=== PATIENT | female | born 1960 | race Caucasian/White ===

== ENCOUNTER 2016-07-07 06:23 | Day surgery (SDC) | payer OTHER ==
[~2016-07-07] VITALS: Ht 168.9 cm; Wt 120.6 kg
[~2016-07-07 06:23] MED LIST: BUDE10.2 INH; CODE30TA2 PO; FEXO180T56 PO; LEVO125T4 PO; OLOP5DRO BOTH EYES; [UNRECOGNIZED DRUG - CODE] PO; nasacort NAS
--- OUTSIDE RECORDS SUMMARY | 2016-07-07 06:31 | XMS REPORT | Referral Summary ---
Author Author [facility], [place] [facility] Organization [facility] Adali[facility]ADISLA[facility] Cortes, [facility] [place], [facility] Address Unknown Phone Unavailable Care Team Providers Care Healthcare Associate Name Role Phone Chantelle Helms Primary Care Physician [phone] Encounter VC Date(s): 10/18/14 - 10/18/14 [facility], [facility] [place], [facility] [address], [address] [place], [place] [address] Discharge Disposition: 01-Home or Self Care Attending Physician: Lin Agrawal, [facility] Admitting Physician: [facility] Tanja, [facility] Vital Signs No data available for this section Problem List Condition Effective Dates Status Health Status Informant Acute Active bronchitis(Confirmed ) Acute Active sinusitis(Confirmed) Allergic Active rhinitis(Confirmed) Benign essential Active hypertension(Confirm ed) Visit for screening Active mammogram(Confirmed) Chest Active discomfort(Confirmed ) Chicken Active pox(Confirmed) Chronic Active headaches(Confirmed) Chronic low back Active pain(Confirmed) Dry eyes(Confirmed) Active Dyspnea(Confirmed) Active Edema(Confirmed) Active Elevated Active BP(Confirmed) Fracture of multiple Active transverse processes(Confirmed) Hayfever(Confirmed) Active Adult Active hypothyroidism(Confi rmed) Influenza Active B(Confirmed) Well adult Active exam(Confirmed) Hot flashes due to Active surgical menopause(Confirmed) Mitral valve Active regurgitation(Confir med) Left leg Active weakness(Confirmed) Morbid obesity with Active BMI of 40.0-44.9, adult(Confirmed) Obstructive sleep Active apnea, adult(Confirmed) Overweight(Confirmed Active ) Left leg Active paresthesias(Confirm ed) Pneumonia(Confirmed) Active Surgical menopause Active on hormone replacement therapy(Confirmed) Restless legs Active syndrome (RLS)(Confirmed) Colon cancer Active screening(Confirmed) Sinus Active infection(Confirmed) Snoring Active disorder(Confirmed) Abnormal chest Active x-ray(Confirmed) Allergies, Adverse Reactions, Alerts Substance Reaction Severity Status penicillin Rash Active Medications acyclovir 200 mg oral capsule See Instructions, Take 4 caps for a cold sore. May repeat in 8-12 hours., # 30 caps, 11 Refill(s), Pharmacy: [facility] #[id number], Take 4 caps for a cold sore. May repeat in 8-12 hours. Start Date: 03/15/14 Status: Ordered Keturah Allergy 180 mg, Oral, Daily, 0 Refill(s) Start Date: 09/05/13 Status: Ordered calcium carbonate 500 mg, Oral, BID, 0 Refill(s) Start Date: 09/05/13 Status: Ordered estradiol 2 mg oral tablet 1 tabs, Oral, Daily, 0 Refill(s) Start Date: 09/05/13 Status: Ordered fluticasone 50 mcg/inh nasal spray See Instructions, USE 2 SPRAYS IN EACH NOSTRIL DAILY NEEDED, # 16 unknown unit, 2 Refill(s), eRx: [facility] #[id number], USE 2 SPRAYS IN EACH NOSTRIL DAILY NEEDED Start Date: 12/01/14 Status: Ordered levothyroxine 25 mcg (0.025 mg) oral tablet See Instructions, TAKE ONE TABLET BY MOUTH EVERY DAY, # 90 tabs, eRx: [facility] #[id number], TAKE ONE TABLET BY MOUTH EVERY DAY Start Date: 03/26/15 Status: Ordered losartan 25 mg oral tablet 1 tabs, Oral, Daily, # 30 tabs, 11 Refill(s), Pharmacy: [facility] #[id number] , 1 tabs Oral Daily Start Date: 03/31/14 Status: Ordered Nasacort AQ sprays, Nasal, Daily, 0 Refill(s) Start Date: 07/13/14 Status: Ordered omega-3 polyunsaturated fatty acids 1000 mg oral capsule 1 caps, Oral, Daily, 0 Refill(s) Start Date: 12/06/13 Status: Ordered Patanol 0.1% ophthalmic solution 1 drops, Eye-Both, BID, as needed for allergies, # 5 mL, 5 Refill(s), Pharmacy: [facility] #[id number] Start Date: 11/07/14 Status: Ordered Requip 1 mg oral tablet See Instructions, TAKE 1 TABLET BY MOUTH 9 TIMES EACH DAY, # 270 tabs, 1 Refill( s), eRx: [facility] #[id number], TAKE 1 TABLET BY MOUTH 9 TIMES EACH DAY Start Date: 03/22/15 Status: Ordered Results No data available for this section Immunizations Vaccine Date Refusal Reason influenza virus vaccine, inactivated1 12/06/13 pneumococcal 23-polyvalent vaccine 11/07/14 tetanus-diphth toxoids (Td) adult/adol 12/28/02 1Result Comment: [12/06/2013] See scanned document Procedures Procedure Date Related Diagnosis Body Site S/P sinus surgery 2009 [facility] - Total abdominal hysterectomy and 2007 bilateral salpingo-oophorectomy1 1had endometriosis and ovarian cysts; nothing precancerous; no abnormal pap smears Social History Social History Type Response Smoking Status Never smoker Assessment and Plan No data available for this section
--- OUTSIDE RECORDS SUMMARY | 2016-07-07 06:31 | XMS REPORT | Referral Summary ---
Author Author [facility] [place], [facility] Organization [facility] Address Unknown Phone Unavailable Care Team Providers Care Glove Cuffer Name Role Phone Chantelle Helms Primary Care Physician [phone] Encounter Date(s): 11/07/14 - 11/07/14 [facility] VLADISLAV Kaur [place], [address] [place] [address] Discharge Diagnosis: Hypothyroid Discharge Disposition: 01-Home or Self Care Attending Physician: Nishant Helms MD Admitting Physician: Nishant Helms MD Vital Signs Most recent to 1 oldest [Reference Range]: Temperature Tympanic 36.5 degC [36.6-38.1 degC] *LOW* (11/07/14 7:27 AM) Peripheral Pulse 64 bpm Rate [60-100 bpm] (11/07/14 7:27 AM) Blood Pressure 124/82 mmHg [90-140/60-90 mmHg] (11/07/14 7:27 AM) Problem List Condition Effective Dates Status Health [...] hours., # 30 caps, 11 Refill(s), Pharmacy: [facility] #[id number], Take 4 caps for a cold sore. [...] # 16 unknown unit, 2 Refill(s), eRx: [facility] #[id number], USE 2 SPRAYS IN EACH NOSTRIL DAILY NEEDED Start Date: 12/01/14 Status: Ordered levothyroxine 25 mcg (0.025 mg) oral tablet See Instructions, TAKE ONE TABLET BY MOUTH EVERY DAY, # 90 tabs, eRx: [facility] #[id number], TAKE ONE TABLET BY MOUTH EVERY DAY Start Date: 03/26/15 Status: Ordered losartan 25 mg oral tablet 1 tabs, Oral, Daily, # 30 tabs, 11 Refill(s), Pharmacy: [facility] #[id number] , 1 tabs Oral Daily Start Date: 03/31/14 Status: Ordered Nasacort AQ sprays, Nasal, Daily, 0 Refill(s) Start Date: 07/13/14 Status: Ordered omega-3 polyunsaturated fatty acids 1000 mg oral capsule 1 caps, Oral, Daily, 0 Refill(s) Start Date: 12/06/13 Status: Ordered Patanol 0.1% ophthalmic solution 1 drops, Eye-Both, BID, as needed for allergies, # 5 mL, 5 Refill(s), Pharmacy: [facility] #[id number] Start Date: 11/07/14 Status: Ordered Requip 1 mg oral tablet See Instructions, TAKE 1 TABLET BY MOUTH 9 TIMES EACH DAY, # 270 tabs, 1 Refill( s), eRx: [facility] #[id number], TAKE 1 TABLET BY MOUTH 9 TIMES EACH DAY Start Date: 03/22/15 Status: Ordered Results Hematology Most recent to 1 oldest [Reference Range]: WBC [4.8-10.8 7.3 10*3/uL 10*3/uL] (11/07/14 8:40 AM) RBC [4.00-5.20] 4.83 (11/07/14 8:40 AM) Hgb [12.0-16.0 14.3 gm/dL gm/dL] (11/07/14 8:40 AM) Hct [37.0-47.0 %] 42.5 % (11/07/14 8:40 AM) MCV [82.0-99.0 fL] 88.0 fL (11/07/14 8:40 AM) MCH [27.0-32.0 pg] 29.6 pg (11/07/14 8:40 AM) MCHC [32.0-36.0 33.6 gm/dL gm/dL] (11/07/14 8:40 AM) RDW [11.5-14.5 %] 13.7 % (11/07/14 8:40 AM) Platelet [150-400 203 10*3/uL 10*3/uL] (11/07/14 8:40 AM) MPV [8.8-14.8 fL] 11.2 fL (11/07/14 8:40 AM) Immature 0.1 % Granulocytes (11/07/14 8:40 AM) [0.0-1.0 %] Neutrophils [51-75 46 % %] *LOW* (11/07/14 8:40 AM) Lymphocytes [20-46 33 % %] (11/07/14 8:40 AM) Monocytes [4-11 %] 8 % (11/07/14 8:40 AM) Eosinophils [0-4 %] 13 % *HI* (11/07/14 8:40 AM) Basophils [0-2 %] 1 % (11/07/14 8:40 AM) Neutro Absolute 3.35 10*3 [1.90-7.00 10*3] (11/07/14 8:40 AM) Lymph Absolute 2.40 10*3 [0.80-3.30 10*3] (11/07/14 8:40 AM) Charlton Absolute 0.58 10*3 [0.30-1.00 10*3] (11/07/14 8:40 AM) Eos Absolute 0.94 10*3 [0.00-0.50 10*3] *HI* (11/07/14 8:40 AM) Baso Absolute 0.06 10*3 [0.00-0.20 10*3] (11/07/14 8:40 AM) Chemistry Most recent to 1 oldest [Reference Range]: Sodium Lvl [135-144 140 mEq/L mEq/L] (11/07/14 8:40 AM) Potassium Lvl 4.0 mEq/L [3.5-5.2 mEq/L] (11/07/14 8:40 AM) Chloride [99-111 107 mEq/L mEq/L] (11/07/14 8:40 AM) CO2 [22-31 mEq/L] 26 mEq/L (11/07/14 8:40 AM) AGAP [3-20] 7 (11/07/14 8:40 AM) BUN [10-20 mg/dL] 11 mg/dL (11/07/14 8:40 AM) Glucose Lvl [70-99 98 mg/dL mg/dL] (11/07/14 8:40 AM) Creatinine Lvl 0.80 mg/dL [0.57-1.11 mg/dL] (11/07/14 8:40 AM) eGFR [>60 mL/min] >60 mL/min 1 (11/07/14 8:40 AM) Calcium Lvl 9.1 mg/dL [8.9-10.5 mg/dL] (11/07/14 8:40 AM) Albumin Lvl [3.5-5.0 3.9 gm/dL gm/dL] (11/07/14 8:40 AM) Total Protein 6.4 gm/dL [6.4-8.3 gm/dL] (11/07/14 8:40 AM) Globulin [1.8-4.0 2.5 gm/dL gm/dL] (11/07/14 8:40 AM) ALT [0-55 U/L] 11 U/L (11/07/14 8:40 AM) AST [5-34 U/L] 13 U/L (11/07/14 8:40 AM) Alk Phos [40-150 58 U/L U/L] (11/07/14 8:40 AM) Bili Total [0.2-1.2 0.7 mg/dL mg/dL] (11/07/14 8:40 AM) Chol [0-199 mg/dL] 219 mg/dL *HI* (11/07/14 8:40 AM) Trig [0-149 mg/dL] 134 mg/dL (11/07/14 8:40 AM) HDL [40-84 mg/dL] 58 mg/dL (11/07/14 8:40 AM) LDL [0-130 mg/dL] 134 mg/dL *HI* (11/07/14 8:40 AM) VLDL Cholesterol 27 mg/dL [0-28 mg/dL] (11/07/14 8:40 AM) Cardiac Risk 3.8 [0.0-5.0] (11/07/14 8:40 AM) TSH [0.35-4.94] 2.81 (11/07/14 8:40 AM) 1Result Comment: Multiply eGFR results by 1.21 for race. Urinalysis Most recent to 1 oldest [Reference Range]: UA Color Yellow (11/07/14 8:43 AM) UA Appear Clear (11/07/14 8:43 AM) UA pH [5.0-8.0] 7.5 (11/07/14 8:43 AM) UA Leuk Est Negative [Negative] (11/07/14 8:43 AM) UA Nitrite Negative [Negative] (11/07/14 8:43 AM) UA Protein Negative [Negative] (11/07/14 8:43 AM) UA Glucose Negative [Negative] (11/07/14 8:43 AM) UA Ketones Negative [Negative] (11/07/14 8:43 AM) UA Urobilinogen 0.2 mg/dL [<1.0 mg/dL] (11/07/14 8:43 AM) UA Bili [Negative] Negative (11/07/14 8:43 AM) UA Blood [Negative] Negative (11/07/14 8:43 AM) UA Spec Grav 1.003 [1.003-1.030] (11/07/14 8:43 AM) Type Clean Catch (11/07/14 8:43 AM) Immunizations Vaccine Date Refusal Reason influenza virus vaccine, inactivated1 12/06/13 pneumococcal 23-polyvalent vaccine 11/07/14 tetanus-diphth toxoids (Td) adult/adol 12/28/02 1Result Comment: [12/06/2013] See scanned document Procedures Procedure Date Related Diagnosis Body Site Collection of venous blood by venipuncture 11/07/14 S/P sinus surgery 2009 [facility] - Total abdominal hysterectomy and 2007 bilateral salpingo-oophorectomy1 1had endometriosis and ovarian cysts; nothing precancerous; no abnormal pap smears Social History Social History Type Response Smoking Status Never smoker Assessment and Plan Extracted from: Title: Ambulatory Patient Education Author: Nishant Helms MD Date: Family Medicine Health Maintenance, Female A healthy lifestyle and preventative care can promote health and wellness. Maintain regular health, dental, and eye exams. Eat a healthy diet. Foods like vegetables, fruits, whole grains, low-fat dairy products, and lean protein foods contain the nutrients you need without too many calories. Decrease your intake of foods high in solid fats, added sugars, and salt. Get information about a proper diet from your caregiver, if necessary. Regular physical exercise is one of the most important things you can do for your health. Most adults should get at least 150 minutes of moderate- intensity exercise (any activity that increases your heart rate and causes you to sweat) each week. In addition, most adults need muscle-strengthening exercises on 2 or more days a week. Maintain a healthy weight. The body mass index (BMI) is a screening tool to identify possible weight problems. It provides an estimate of body fat based on height and weight. Your caregiver can help determine your BMI, and can help you achieve or maintain a healthy weight. For adults 20 years and older: A BMI below 18.5 is considered underweight. A BMI of 18.5 to 24.9 is normal. A BMI of 25 to 29.9 is considered overweight. A BMI of 30 and above is considered obese. Maintain normal blood lipids and cholesterol by exercising and minimizing your intake of saturated fat. Eat a balanced diet with plenty of fruits and vegetables. Blood tests for lipids and cholesterol should begin at age 20 and be repeated every 5 years. If your lipid or cholesterol levels are high, you are over 50, or you are a high risk for heart disease, you may need your cholesterol levels checked more frequently.Ongoing high lipid and cholesterol levels should be treated with medicines if diet and exercise are not effective. If you smoke, find out from your caregiver how to quit. If you do not use tobacco, do not start. Lung cancer screening is recommended for adults aged 5580 years who are at high risk for developing lung cancer because of a history of smoking. Yearly low-dose computed tomography (CT) is recommended for people who have at least a 93-[id number]-yxsq history of smoking and are a current smoker or have quit within the past 15 years. A pack year of smoking is smoking an average of 1 pack of cigarettes a day for 1 year (for example: 1 pack a day for 30 years or 2 packs a day for 15 years). Yearly screening should continue until the smoker has stopped smoking for at least 15 years. Yearly screening should also be stopped for people who develop a health problem that would prevent them from having lung cancer treatment. If you are , do not drink alcohol. If you are , be very cautious about drinking alcohol. If you are not and choose to drink alcohol, do not exceed 1 drink per day. One drink is considered to be 12 ounces (355 mL) of beer, 5 ounces (148 mL) of wine, or 1.5 ounces (44 mL) of liquor. Avoid use of street drugs. Do not share needles with anyone. Ask for help if you need support or instructions about stopping the use of drugs. High blood pressure causes heart disease and increases the risk of stroke. Blood pressure should be checked at least every 1 to 2 years. Ongoing high blood pressure should be treated with medicines, if weight loss and exercise are not effective. If you are 55 to 79 years old, ask your caregiver if you should take aspirin to prevent strokes. Diabetes screening involves taking a blood sample to check your fasting blood sugar level. This should be done once every 3 years, after age 45, if you are within normal weight and without risk factors for diabetes. Testing should be considered at a younger age or be carried out more frequently if you are overweight and have at least 1 risk factor for diabetes. Breast cancer screening is essential preventative care for women. You should practice "breast self-awareness." This means understanding the normal appearance and feel of your breasts and may include breast self-examination. Any changes detected, no matter how small, should be reported to a caregiver. Women in their 20s and 30s should have a clinical breast exam (CBE) by a caregiver as part of a regular health exam every 1 to 3 years. After age 40, women should have a CBE every year. Starting at age 40, women should consider having a mammogram (breast X-ray) every year. Women who have a family history of breast cancer should talk to their caregiver about genetic screening. Women at a high risk of breast cancer should talk to their caregiver about having an MRI and a mammogram every year. Breast cancer gene (BRCA)-related cancer risk assessment is recommended for women who have family members with BRCA-related cancers. BRCA-related cancers include breast, ovarian, tubal, and peritoneal cancers. Having family members with these cancers may be associated with an increased risk for harmful changes (mutations) in the breast cancer genes BRCA1 and BRCA2. Results of the assessment will determine the need for genetic counseling and BRCA1 and BRCA2 testing. The Pap test is a screening test for cervical cancer. Women should have a Pap test starting at age 21. Between ages 21 and 29, Pap tests should be repeated every 2 years. Beginning at age 30, you should have a Pap test every 3 years as long as the past 3 Pap tests have been normal. If you had a hysterectomy for a problem that was not cancer or a condition that could lead to cancer, then you no longer need Pap tests. If you are between ages 65 and 70 , and you have had normal Pap tests going back 10 years, you no longer need Pap tests. If you have had past treatment for cervical cancer or a condition that could lead to cancer, you need Pap tests and screening for cancer for at least 20 years after your treatment. If Pap tests have been discontinued, risk factors (such as a new sexual partner) need to be reassessed to determine if screening should be resumed. Some women have medical problems that increase the chance of getting cervical cancer. In these cases, your caregiver may recommend more frequent screening and Pap tests. The human papillomavirus (HPV) test is an additional test that may be used for cervical cancer screening. The HPV test looks for the virus that can cause the cell changes on the cervix. The cells collected during the Pap test can be tested for HPV. The HPV test could be used to screen women aged 30 years and older, and should be used in women of any age who have unclear Pap test results. After the age of 30, women should have HPV testing at the same frequency as a Pap test. Colorectal cancer can be detected and often prevented. Most routine colorectal cancer screening begins at the age of 50 and continues through age 75. However, your caregiver may recommend screening at an earlier age if you have risk factors for colon cancer. On a yearly basis, your caregiver may provide home test kits to check for hidden blood in the stool. Use of a small camera at the end of a tube, to directly examine the colon (sigmoidoscopy or colonoscopy), can detect the earliest forms of colorectal cancer. Talk to your caregiver about this at age 50, when routine screening begins. Direct examination of the colon should be repeated every 5 to 10 years through age 75, unless early forms of pre-cancerous polyps or small growths are found. Hepatitis C blood testing is recommended for all people born from 1945 through 1965 and any individual with known risks for hepatitis C. Practice safe sex. Use condoms and avoid high-risk sexual practices to reduce the spread of sexually transmitted infections (STIs). Sexually active women aged 25 and younger should be checked for Chlamydia, which is a common sexually transmitted infection. Older women with new or multiple partners should also be tested for Chlamydia. Testing for other STIs is recommended if you are sexually active and at increased risk. Osteoporosis is a disease in which the bones lose minerals and strength with aging. This can result in serious bone fractures. The risk of osteoporosis can be identified using a bone density scan. Women ages 65 and over and women at risk for fractures or osteoporosis should discuss screening with their caregivers. Ask your caregiver whether you should be taking a calcium supplement or vitamin D to reduce the rate of osteoporosis. Menopause can be associated with physical symptoms and risks. Hormone replacement therapy is available to decrease symptoms and risks. You should talk to your caregiver about whether hormone replacement therapy is right for you. Use sunscreen. Apply sunscreen liberally and repeatedly throughout the day. You should seek shade when your shadow is shorter than you. Protect yourself by wearing long sleeves, pants, a wide-brimmed hat, and sunglasses year round, whenever you are outdoors. Notify your caregiver of new moles or changes in moles, especially if there is a change in shape or color. Also notify your caregiver if a mole is larger than the size of a pencil eraser. Stay current with your immunizations. Document Released: 09/08/2011 Document Revised: 06/20/2013 Document Reviewed: [employer] Patient Information 2015 [employer]. This information is not intended to replace advice given to you by your health care provider. Make sure you discuss any questions you have with your health care provider. No follow up information was provided. Extracted from: Title: Female Physical Author: Nishant Helms MD Date: 11/07/14 Impression and Plan Diagnosis Abnormal chest x-ray (ICD9 793.2, Working, Medical). Adult hypothyroidism (ICD9 244.9, Working, Medical). Benign essential hypertension (ICD9 401.1, Working, Medical). Chronic headaches (ICD9 784.0, Working, Medical). Chronic low back pain (ICD9 724.2, Working, Medical). Colon cancer screening (ICD9 V76.51, Working, Medical). Mitral valve regurgitation (ICD9 424.0, Working, Medical). Morbid obesity with BMI of 40.0-44.9, adult (ICD9 278.01, Working, Medical). Obstructive sleep apnea, adult (ICD9 327.23, Working, Medical). Restless legs syndrome (RLS) (ICD9 333.94, Working, Medical). Surgical menopause on hormone replacement therapy (ICD9 256.2, Working, Medical) . Visit for screening mammogram (ICD9 V76.12, Working, Medical). Well adult exam (ICD9 V70.0, Working, Medical). Plan: 1) Healthy diet, weight loss and daily exercise helps most things. 2) Continue your current meds. 3) Get fasting lab and a chest xray today. 4) [facility] 5) Pneumovax today. 6) See if you've had the Hepatitis A series or not--I recommend it. 7) Hemmocult stool tests ordered for colon cancer screening. 8) Send us a copy of your immunizations and mammogram report.. Orders Orders (Selected) Outpatient Orders Ordered Periodic Comp Preventive Med 40 to 64 years Est [id number]: pneumococcal 23-polyvalent vaccine: 0.5 mL, IntraMuscular, Once Future (On Hold) CBC w/ Differential: CMP: Fasting Lipid Profile: Occult Blood X 3, Stool: Routine Urinalysis: TSH 3rd Generation: XR Chest 2 Views: Prescriptions Prescribed Patanol 0.1% ophthalmic solution: 1 drops, Eye-Both, BID, PRN: as needed for allergies, 5 mL, 5 Refill(s).
--- OUTSIDE RECORDS SUMMARY | 2016-07-07 06:32 | XMS REPORT | Referral Summary ---
Author Author [facility] Organization [facility] Address Unknown Phone Unavailable Care Team Providers Care Billet Examiner Name Role Phone Chantelle Helms Primary Care Physician [phone] Encounter VC Date(s): 08/18/14 - 08/18/14 [facility] [address] [place], [place] [address] Discharge Disposition: 01-Home or Self Care Attending Physician: Lin Agrawal [facility] Admitting Physician: [facility] Tanja [facility] Vital Signs No data [...] hours., # 30 caps, 11 Refill(s), Pharmacy: [facility] #[id number], Take 4 caps for a cold sore. [...] # 16 unknown unit, 2 Refill(s), eRx: [facility] #[id number], USE 2 SPRAYS IN EACH NOSTRIL DAILY NEEDED Start Date: 12/01/14 Status: Ordered levothyroxine 25 mcg (0.025 mg) oral tablet See Instructions, TAKE ONE TABLET BY MOUTH EVERY DAY, # 90 tabs, eRx: [facility] #[id number], TAKE ONE TABLET BY MOUTH EVERY DAY Start Date: 09/07/14 Status: Ordered losartan 25 mg oral tablet 1 tabs, Oral, Daily, # 30 tabs, 11 Refill(s), Pharmacy: [facility] #[id number] , 1 tabs Oral Daily Start Date: 03/31/14 Status: Ordered Nasacort AQ sprays, Nasal, Daily, 0 Refill(s) Start Date: 07/13/14 Status: Ordered omega-3 polyunsaturated fatty acids 1000 mg oral capsule 1 caps, Oral, Daily, 0 Refill(s) Start Date: 12/06/13 Status: Ordered Patanol 0.1% ophthalmic solution 1 drops, Eye-Both, BID, as needed for allergies, # 5 mL, 5 Refill(s), Pharmacy: [facility] #[id number] Start Date: 11/07/14 Status: Ordered Requip 1 mg oral tablet See Instructions, TAKE 1TABLET BY MOUTH 9 TIMES EACH DAY, # 270 tabs, 2 Refill(s ), eRx: [facility] #[id number], TAKE 1TABLET BY MOUTH 9 TIMES EACH DAY Start Date: 12/01/14 Status: Ordered Results No data available for [...]
--- OUTSIDE RECORDS SUMMARY | 2016-07-07 06:32 | XMS REPORT | Referral Summary ---
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 Role Phone Chantelle Helms Primary Care Physician [phone] Encounter VC Date(s): 11/06/15 - 11/06/15 [facility]ISLA[facility] [address] [place] [address] Discharge Diagnosis: Bronchitis Discharge Disposition: 01-Home or Self Care Attending Physician: Stanley Traylor PA-C Admitting Physician: Stanley Traylor PA-C Vital Signs Most recent to 1 oldest [Reference Range]: Temperature Tympanic 36.9 degC [36.6-38.1 degC] (11/06/15 5:11 PM) Peripheral Pulse 84 bpm Rate [60-100 bpm] (11/06/15 5:11 PM) Blood Pressure 124/88 mmHg [90-140/60-90 mmHg] (11/06/15 5:11 PM) SpO2 97 % (11/06/15 5:11 PM) Problem List Condition Effective Dates Status Health [...] # 30 caps, 11 Refill(s), Pharmacy: [facility] #[id number], Take 4 caps for a cold sore. May repeat in 8-12 hours. Start Date: 10/16/15 Status: Ordered albuterol CFC free 90 mcg/inh inhalation aerosol 2 puffs, Inhalation, q4hr, as needed for wheezing, # 18 g, 0 Refill(s), Pharmacy : [facility] #[id number] Start Date: 11/06/15 Status: Ordered Keturah Allergy 180 mg, Oral, Daily, 0 Refill(s) Start Date: 09/05/13 Status: Ordered calcium carbonate 500 mg, Oral, BID, 0 Refill(s) Start Date: 09/05/13 Status: Ordered fluticasone 50 mcg/inh nasal spray See Instructions, USE 2 SPRAYS IN EACH NOSTRIL DAILY NEEDED, # 16 unknown unit, 2 Refill(s), eRx: [facility] #[id number], USE 2 SPRAYS IN EACH NOSTRIL DAILY NEEDED Start Date: 12/01/14 Status: Ordered gabapentin 100 mg oral capsule See Instructions, 1 cap daily at 7PM x 3 days, then 2 caps daily at 7PM x 3 days , then 3 caps daily at 7PM until next appt., # 60 tabs, 1 Refill(s), Pharmacy: [facility] #[id number], 1 cap daily at 7PM x 3 days, then 2 caps daily at 7PM x 3 days, th... Start Date: 11/02/15 Status: Ordered levothyroxine 25 mcg (0.025 mg) oral tablet See Instructions, TAKE ONE TABLET BY MOUTH EVERY DAY, # 90 tabs, eRx: [facility] #[id number], TAKE ONE TABLET BY MOUTH EVERY DAY Start Date: 03/26/15 Status: Ordered omega-3 polyunsaturated fatty acids 1000 mg oral capsule 1 caps, Oral, Daily, 0 Refill(s) Start Date: 12/06/13 Status: Ordered omega-3 polyunsaturated fatty acids 1000 mg oral capsule 1,000 mg 1 caps, Oral, Daily, 0 Refill(s) Start Date: 10/16/15 Status: Ordered Patanol 0.1% ophthalmic solution 1 drops, Eye-Both, BID, as needed for allergies, # 5 mL, 5 Refill(s), Pharmacy: [facility] #[id number] Start Date: 11/07/14 Status: Ordered Requip 1 mg oral tablet See Instructions, TAKE 1 TABLET BY MOUTH 9 TIMES EACH DAY, # 270 tabs, 2 Refill( s), eRx: [facility] #[id number], TAKE 1 TABLET BY MOUTH 9 TIMES EACH DAY Start Date: 05/21/15 Status: Ordered Singulair 10 mg oral tablet 10 mg 1 tabs, Oral, qPM, # 30 tabs, 11 Refill(s), Pharmacy: [facility] # [id number], 1 tabs Oral qPM Start Date: 07/17/15 Status: Ordered Symbicort 160 mcg-4.5 mcg/inh inhalation aerosol 2 puffs, Inhalation, BID, as needed for asthma, # 1 Each, 5 Refill(s), Pharmacy : [facility] #[id number] Start Date: 11/05/15 Status: Ordered Results No data available for [...]
--- OUTSIDE RECORDS SUMMARY | 2016-07-07 06:32 | XMS REPORT | Referral Summary ---
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 Role Phone Chantelle Helms Primary Care Physician [phone] Encounter VC Date(s): 11/08/15 - 11/08/15 [facility] VLADISLA[facility] Kaur [place], [address] [place] [address] Discharge Disposition: 01-Home or Self Care Attending Physician: Nishant Helms MD Admitting Physician: Nishant Helms MD Vital Signs Most recent to 1 oldest [Reference Range]: Temperature Tympanic 36.8 degC [36.6-38.1 degC] (11/08/15 10:33 AM) Peripheral Pulse 76 bpm Rate [60-100 bpm] (11/08/15 10:33 AM) SpO2 98 % (11/08/15 10:33 AM) Problem List Condition Effective Dates Status [...] hours., # 30 caps, 11 Refill(s), Pharmacy: [facility] #[id number], Take 4 caps for a cold sore. May repeat in 8-12 hours. Start Date: 10/16/15 Status: Ordered albuterol CFC free 90 mcg/inh inhalation aerosol 2 puffs, Inhalation, q4hr, as needed for wheezing, # 18 g, 0 Refill(s), Pharmacy : [facility] #[id number] Start Date: 11/06/15 Status: Ordered Keturah Allergy 180 mg, Oral, Daily, 0 Refill(s) Start Date: 09/05/13 Status: Ordered azithromycin 250 mg oral tablet See Instructions, 2 tabs today, then 1 tab daily for 4 days., # 6 tabs, 0 Refill (s), Pharmacy: [facility] #[id number], 2 tabs today, then 1 tab daily for 4 days. Start Date: 11/08/15 Stop Date: 11/13/15 Status: Ordered calcium carbonate 500 mg, Oral, BID, 0 Refill(s) Start Date: 09/05/13 Status: Ordered fluticasone 50 mcg/inh nasal spray See Instructions, USE 2 SPRAYS IN EACH NOSTRIL DAILY NEEDED, # 16 unknown unit, 2 Refill(s), eRx: [facility] #[id number], USE 2 SPRAYS IN EACH NOSTRIL DAILY NEEDED Start Date: 12/01/14 Status: Ordered gabapentin 100 mg oral capsule See Instructions, 1 cap daily at 7PM x 3 days, then 2 caps daily at 7PM x 3 days , then 3 caps daily at 7PM until next appt., # 60 tabs, 1 Refill(s), Pharmacy: [facility] #[id number], 1 cap daily at 7PM x 3 days, then 2 caps daily at 7PM x 3 days, th... Start Date: 11/02/15 Status: Ordered levothyroxine 25 mcg (0.025 mg) oral tablet See Instructions, TAKE ONE TABLET BY MOUTH EVERY DAY, # 90 tabs, eRx: [facility] #[id number], TAKE ONE TABLET BY MOUTH EVERY DAY Start Date: 03/26/15 Status: Ordered omega-3 polyunsaturated fatty acids 1000 mg oral capsule 1,000 mg 1 caps, Oral, Daily, 0 Refill(s) Start Date: 10/16/15 Status: Ordered Patanol 0.1% ophthalmic solution 1 drops, Eye-Both, BID, as needed for allergies, # 5 mL, 5 Refill(s), Pharmacy: [facility] #[id number] Start Date: 11/07/14 Status: Ordered predniSONE 20 mg oral tablet See Instructions, 2 tabs daily for 4 days, then 1 tab daily for 4 days., # 12 tabs, 0 Refill(s), Pharmacy: [facility] #[id number], 2 tabs daily for 4 days, then 1 tab daily for 4 days. Start Date: 11/08/15 Stop Date: 11/16/15 Status: Ordered Requip 1 mg oral tablet See Instructions, TAKE 1 TABLET BY MOUTH 9 TIMES EACH DAY, # 270 tabs, 2 Refill( s), eRx: [facility] #[id number], TAKE 1 TABLET BY MOUTH 9 TIMES EACH DAY Start Date: 05/21/15 Status: Ordered Singulair 10 mg oral tablet 10 mg 1 tabs, Oral, qPM, # 30 tabs, 11 Refill(s), Pharmacy: [facility] # [id number], 1 tabs Oral qPM Start Date: 07/17/15 Status: Ordered Symbicort 160 mcg-4.5 mcg/inh inhalation aerosol 2 puffs, Inhalation, BID, as needed for asthma, # 1 Each, 5 Refill(s), Pharmacy : [facility] #[id number] Start Date: 11/05/15 Status: Ordered Results Hematology Most recent to 1 oldest [Reference Range]: WBC [5.0-10.0 5.6 10*3/uL 10*3/uL] (11/08/15 11:10 AM) RBC [3.70-5.20] 5.00 (11/08/15 11:10 AM) Hgb [12.0-16.0 14.1 gm/dL gm/dL] (11/08/15 11:10 AM) Hct [37.0-47.0 %] 42.9 % (11/08/15 11:10 AM) MCV [80.0-96.0 fL] 85.8 fL (11/08/15 11:10 AM) MCH [26.0-34.0 pg] 28.2 pg (11/08/15 11:10 AM) MCHC [32.0-36.0 32.9 gm/dL gm/dL] (11/08/15 11:10 AM) RDW [0.0-14.5 %] 13.8 % (11/08/15 11:10 AM) Platelet [150-400 160 10*3/uL 10*3/uL] (11/08/15 11:10 AM) MPV [8.8-14.8 fL] 10.2 fL (11/08/15 11:10 AM) Neutrophils [50-70 52 % %] (11/08/15 11:10 AM) Lymphocytes [20-40 32 % %] (11/08/15 11:10 AM) Monocytes [4-8 %] 9 % *HI* (11/08/15 11:10 AM) Eosinophils [0-6 %] 5 % (11/08/15 11:10 AM) Basophils [0-2 %] 1 % (11/08/15 11:10 AM) Neutro Absolute 2.93 10*3 [2.50-7.00 10*3] (11/08/15 11:10 AM) Lymph Absolute 1.81 10*3 [1.00-4.00 10*3] (11/08/15 11:10 AM) [place] Absolute 0.52 10*3 [0.20-0.80 10*3] (11/08/15 11:10 AM) Eos Absolute 0.30 10*3 [0.00-0.60 10*3] (11/08/15 11:10 AM) Baso Absolute 0.07 [0.00-0.30] (11/08/15 11:10 AM) Immunizations Vaccine Date Refusal Reason influenza virus vaccine, inactivated1 12/06/13 pneumococcal 23-polyvalent vaccine 11/07/14 tetanus-diphth toxoids (Td) adult/adol 12/28/02 1Result Comment: [12/06/2013] See scanned document Procedures Procedure Date Related Diagnosis Body Site Collection of venous blood by venipuncture 11/08/15 S/P sinus surgery 2009 [facility] BSO - Total abdominal hysterectomy and 2007 bilateral salpingo-oophorectomy1 1had endometriosis and ovarian cysts; nothing precancerous; no abnormal pap smears Social History Social History Type Response Smoking Status Never smoker Assessment and Plan Extracted from: Title: Ambulatory Patient Education Author: Nishant Helms MD Date: Family Medicine Pneumonia, Adult Pneumonia is an infection of the lungs. CAUSES Pneumonia may be caused by bacteria or a virus. Usually, the infection is caused by breathing in droplets from an infected person's cough or sneeze. SYMPTOMS Symptoms of pneumonia include: Cough. Fever. Chest pain. Rapid breathing. Shortness of breath. Shaking chills. Mucus production. DIAGNOSIS If you have the common symptoms of pneumonia, often your health care provider will confirm the diagnosis with a chest X-ray. The X-ray will show an abnormality in the lung if you have pneumonia. Other tests may be done on your blood, urine, or mucus (sputum) to find the specific cause of your pneumonia. A blood gas test or pulse oximetry test may be needed to check how well your lungs are working. TREATMENT Your treatment will depend on whether your pneumonia is caused by bacteria or a virus. Bacterial pneumonia is treated with antibiotic medicine. Pneumonia that is caused by the influenza virus may be treated with an antiviral medicine. Pneumonia that is caused by a virus other than influenza will not respond to antibiotic medicine. This type of pneumonia will have to run its course. HOME CARE INSTRUCTIONS Cough suppressants may be used if you are losing too much rest from coughing at night. However, you should try to avoid taking cough suppresants. This is because coughing helps to remove mucus from your lungs. Sleep in a semi-upright position at night. Try sleeping in a reclining chair, or place a few pillows under your head. Try using a cold steam vaporizer or humidifier in your home or bedroom. This may help loosen your mucus. If you were prescribed an antibiotic medicine, finish all of it even if you start to feel better. If you were prescribed an expectorant, take it as directed by your health care provider. This medicine loosens the mucus so you can cough it up. Take medicines only as directed by your health care provider. Do not smoke. If you are a smoker and continue to smoke, your cough may last several weeks after your pneumonia has cleared. Get rest when you feel tired, or as needed. PREVENTION A pneumococcal shot (vaccine) is available to prevent a common bacterial cause of pneumonia. This is usually suggested for: People over 65 years old. People on chemotherapy. People with chronic lung problems, such as bronchitis or emphysema. People with immune system problems. If you are over 65 years old or have a high risk condition, you may receive the pneumococcal vaccine if you have not received it before. In some countries, a routine influenza vaccine is also recommended. This vaccine can help prevent some cases of pneumonia.You may be offered the influenza vaccine as part of your care. If you are a smoker, it is time to quit in order to prevent pneumonia in the future. You may receive instructions on how to stop smoking. Your health care provider can provide medicines and counseling to help you quit. SEEK MEDICAL CARE IF: You have a fever. You cannot control your cough with suppressants at night, and you keep losing sleep. SEEK IMMEDIATE MEDICAL CARE IF: You have worsening shortness of breath. You have increased chest pain. Your sickness becomes worse, especially if you are an older adult or have a weakened immune system. You cough up blood. You have pain that is getting worse or is not controlled with medicines. Your symptoms are getting worse rather than better. This information is not intended to replace advice given to you by your health care provider. Make sure you discuss any questions you have with your health care provider. Document Released: 02/23/2006 Document Revised: 03/16/2015 Document Reviewed: [employer] Patient Information 2016 [facility] [facility]. No follow up information was provided. Extracted from: Title: pneumonia Author: Nishant Helms MD Date: 11/08/15 Impression and Plan Diagnosis Pneumonia (SYS35-PK J18.9, Working, Medical). Restless legs syndrome (RLS) (OLA59-FL G25.81, Working, Medical). Obstructive sleep apnea, adult (MVM60-MK G47.33, Working, Medical). Adult hypothyroidism (BYI15-VQ E03.9, Working, Medical). Primary hypercholesterolemia (QDO72-NI E78.0, Working, Medical). Acute frontal sinusitis (BOG23-HR J01.10, Working, Medical). Plan: 1) Rocephin 1 gm given IM. 2) Take the Azithromycin and Prednisone as prescribed. 3) Rest at home for several days. 4) Use your inhalers as prescribed. 5) See me in 3 weeks and as needed. 6) You will need a repeat CXR and a Prevnar-13 vaccine in about 3 weeks, most likely. 7) May continue your other meds as ordered.. Orders Orders (Selected) Outpatient Orders Ordered Office Visit Level 4 Est 97187: Completed CBC w/ Differential: XR Chest 2 Views: cefTRIAXone: 1 g, IntraMuscular, Once Prescriptions Prescribed azithromycin 250 mg oral tablet: See Instructions, 2 tabs today, then 1 tab daily for 4 days., 6 tabs, 0 Refill(s) predniSONE 20 mg oral tablet: See Instructions, 2 tabs daily for 4 days, then 1 tab daily for 4 days., 12 tabs, 0 Refill(s). Dx/Order Association Plan: Diagnosis: Acute frontal sinusitis Comment: Diagnosis: Adult hypothyroidism Comment: Ordered: Office Visit Level 4 Est 97705; 11/08/15 12:00:00 CDT, Pneumonia | Obstructive sleep apnea, adult | Restless legs syndrome (RLS) | Adult hypothyroidism | Primary hypercholesterolemia Diagnosis: Obstructive sleep apnea, adult Comment: Ordered: Office Visit Level 4 Est 69120; 11/08/15 12:00:00 CDT, Pneumonia | Obstructive sleep apnea, adult | Restless legs syndrome (RLS) | Adult hypothyroidism | Primary hypercholesterolemia Diagnosis: Pneumonia Comment: Ordered: Office Visit Level 4 Est 26711; 11/08/15 12:00:00 CDT, Pneumonia | Obstructive sleep apnea, adult | Restless legs syndrome (RLS) | Adult hypothyroidism | Primary hypercholesterolemia Other status: cefTRIAXone; 1 g, IntraMuscular, Once, First Dose: 11/08/15 12:00:00 CDT, Stop Date: 11/08/15 12:00:00 CDT (Completed) CBC w/ Differential; Blood, Stat Collect, 10:44:00 CDT, Once, Stop date 11/08/15 10:44:00 CDT, Lab Collect, Pneumonia | Benign essential hypertension (Completed) XR Chest 2 Views; 11/08/15 10:44:00 CDT, Routine, Stop date 11/08/15 10:44:00 CDT, Reason: Cough, Pneumonia | Benign essential hypertension, ABN Status: Not Required (Completed) Diagnosis: Primary hypercholesterolemia Comment: Ordered: Office Visit Level 4 Est 10442; 11/08/15 12:00:00 CDT, Pneumonia | Obstructive sleep apnea, adult | Restless legs syndrome (RLS) | Adult hypothyroidism | Primary hypercholesterolemia Diagnosis: Restless legs syndrome (RLS) Comment: Ordered: Office Visit Level 4 Est 14517; 11/08/15 12:00:00 CDT, Pneumonia | Obstructive sleep apnea, adult | Restless legs syndrome (RLS) | Adult hypothyroidism | Primary hypercholesterolemia Additional Orders: Comment: Ordered: azithromycin 250 mg oral tablet,See Instructions, 2 tabs today, then 1 tab daily for 4 days., # 6 tabs, 0 Refill(s), Pharmacy: [facility] #[id number], 2 tabs today, then 1 tab daily for 4 days. Ordered: predniSONE 20 mg oral tablet,See Instructions, 2 tabs daily for 4 days, then 1 tab daily for 4 days., # 12 tabs, 0 Refill(s), Pharmacy : [facility] #[id number], 2 tabs daily for 4 days, then 1 tab daily for 4 days. End of Orders ."
--- OUTSIDE RECORDS SUMMARY | 2016-07-07 06:32 | XMS REPORT | Referral Summary ---
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 Discharge Diagnosis: Obstructive sleep apnea, adult Discharge Disposition: 01-Home or Self Care Attending Physician: Chris Flores MD Admitting Physician: Chris Flores MD Referring Physician: Nishant Helms MD Vital Signs Most recent to 1 oldest [Reference Range]: Peripheral Pulse 84 bpm Rate [60-100 bpm] (07/13/14 1:34 PM) Blood Pressure 122/76 mmHg [90-140/60-90 mmHg] (07/13/14 1:34 PM) SpO2 97 % (07/13/14 1:34 PM) Problem List Condition Effective Dates Status [...] hours., # 30 caps, 11 Refill(s), Pharmacy: [facility] #[id number], Take 4 caps for a cold sore. [...] # 16 unknown unit, 2 Refill(s), eRx: [facility] #[id number], USE 2 SPRAYS IN EACH NOSTRIL DAILY NEEDED Start Date: 12/01/14 Status: Ordered levothyroxine 25 mcg (0.025 mg) oral tablet See Instructions, TAKE ONE TABLET BY MOUTH EVERY DAY, # 90 tabs, eRx: [facility] #[id number], TAKE ONE TABLET BY MOUTH EVERY DAY Start Date: 09/07/14 Status: Ordered losartan 25 mg oral tablet 1 tabs, Oral, Daily, # 30 tabs, 11 Refill(s), Pharmacy: [facility] #[id number] , 1 tabs Oral Daily Start Date: 03/31/14 Status: Ordered Nasacort AQ sprays, Nasal, Daily, 0 Refill(s) Start Date: 07/13/14 Status: Ordered omega-3 polyunsaturated fatty acids 1000 mg oral capsule 1 caps, Oral, Daily, 0 Refill(s) Start Date: 12/06/13 Status: Ordered Patanol 0.1% ophthalmic solution 1 drops, Eye-Both, BID, as needed for allergies, # 5 mL, 5 Refill(s), Pharmacy: [facility] #[id number] Start Date: 11/07/14 Status: Ordered Requip 1 mg oral tablet See Instructions, TAKE 1TABLET BY MOUTH 9 TIMES EACH DAY, # 270 tabs, 2 Refill(s ), eRx: [facility] #[id number], TAKE 1TABLET BY MOUTH 9 TIMES EACH DAY Start Date: 12/01/14 Status: Ordered Results No data available for this section Immunizations Vaccine Date Refusal Reason influenza virus vaccine, inactivated1 12/06/13 pneumococcal 23-polyvalent vaccine 11/07/14 tetanus-diphth toxoids (Td) adult/adol 12/28/02 1Result Comment: [12/06/2013] See scanned document Procedures Procedure Date Related Diagnosis Body Site S/P sinus surgery 2009 [facility] BSO - Total abdominal hysterectomy and 2007 bilateral salpingo-oophorectomy1 1had endometriosis and ovarian cysts; nothing precancerous; no abnormal pap smears Social History Social History Type Response Smoking Status Never smoker Assessment and Plan Extracted from: Title: Ambulatory Patient Education Author: Chris Flores MD Date: Family Medicine Sleep Apnea Sleep apnea is a sleep disorder characterized by abnormal pauses in breathing while you sleep. When your breathing pauses, the level of oxygen in your blood decreases. This causes you to move out of deep sleep and into light sleep. As a result, your quality of sleep is poor, and the system that carries your blood throughout your body (cardiovascular system ) experiences stress. If sleep apnea remains untreated, the following conditions can develop: High blood pressure (hypertension ). Coronary artery disease. Inability to achieve or maintain an erection (impotence ). Impairment of your thought process (cognitive dysfunction ). There are three types of sleep apnea: 1. Obstructive sleep apnea Pauses in breathing during sleep because of a blocked airway. 2. Central sleep apnea Pauses in breathing during sleep because the area of the brain that controls your breathing does not send the correct signals to the muscles that control breathing. 3. Mixed sleep apneaA combination of both obstructive and central sleep apnea. RISK FACTORS The following risk factors can increase your risk of developing sleep apnea: Being overweight. Smoking. Having narrow passages in your nose and throat. Being of older age. Being male. Alcohol use. Sedative and tranquilizer use. Ethnicity. Among individuals younger than 35 years, Americans are at increased risk of sleep apnea. SYMPTOMS Difficulty staying asleep. Daytime sleepiness and fatigue. Loss of energy. Irritability. Loud, heavy snoring. Morning headaches. Trouble concentrating. Forgetfulness. Decreased interest in sex. DIAGNOSIS In order to diagnose sleep apnea, your caregiver will perform a physical examination. Your caregiver may suggest that you take a home sleep test. Your caregiver may also recommend that you spend the night in a sleep lab. In the sleep lab, several monitors record information about your heart, lungs, and brain while you sleep. Your leg and arm movements and blood oxygen level are also recorded. TREATMENT The following actions may help to resolve mild sleep apnea: Sleeping on your side. Using a decongestant if you have nasal congestion. Avoiding the use of depressants, including alcohol, sedatives, and narcotics. Losing weight and modifying your diet if you are overweight. There also are devices and treatments to help open your airway: Oral appliances. These are custom-made mouthpieces that shift your lower jaw forward and slightly open your bite. This opens your airway. Devices that create positive airway pressure. This positive pressure "splints" your airway open to help you breathe better during sleep. The following devices create positive airway pressure: Continuous positive airway pressure (CPAP) device. The CPAP device creates a continuous level of air pressure with an air pump. The air is delivered to your airway through a mask while you sleep. This continuous pressure keeps your airway open. Nasal expiratory positive airway pressure (EPAP) device. The EPAP device creates positive air pressure as you exhale. The device consists of single-use valves, which are inserted into each nostril and held in place by adhesive. The valves create very little resistance when you inhale but create much more resistance when you exhale. That increased resistance creates the positive airway pressure. This positive pressure while you exhale keeps your airway open , making it easier to breath when you inhale again. Bilevel positive airway pressure (BPAP) device. The BPAP device is used mainly in patients with central sleep apnea. This device is similar to the CPAP device because it also uses an air pump to deliver continuous air pressure through a mask. However, with the BPAP machine, the pressure is set at two different levels. The pressure when you exhale is lower than the pressure when you inhale. Surgery. Typically, surgery is only done if you cannot comply with less invasive treatments or if the less invasive treatments do not improve your condition. Surgery involves removing excess tissue in your airway to create a wider passage way. Document Released: 02/13/2003 Document Revised: 06/20/2013 Document Reviewed: [facility] Patient Information 2014 [employer] [facility]. No follow up information was provided. Extracted from: Title: Office Visit Note Author: Chris Flores MD Date: 07/13/14 Assessment/Plan Obstructive sleep apnea, adult Impression: Evaluation for sleep apnea with a sleep study is recommended. Indications/risk factors include snoring, excessive daytime sleepiness, hypertension, body mass index over 35, age over 50. The patient's oximetry is suggestive of sleep-disordered breathing. Plan: Discussion with the patient about the pathophysiology of sleep apnea, the nature of overnight sleep studies, and about CPAP treatment. After discussion, polysomnography is scheduled, with a split-night study if indicated. The patient will return after the study to review the results, and further recommendations to her referring caregivers will follow at that point. Referrals to Other Providers Referred by: Chris Flores MD
--- OUTSIDE RECORDS SUMMARY | 2016-07-07 06:32 | XMS REPORT | Referral Summary ---
Author Author [facility] Organization [facility] Address Unknown Phone Unavailable Care Team Providers Care Special Forces Specialist Name Role Phone Chantelle Helms Primary Care Physician [phone] Encounter Date(s): 08/02/14 - 08/02/14 [facility] [address] [facility], [facility] [address] [place], [place] [address] Discharge Diagnosis: Obstructive sleep apnea, adult Discharge Disposition: 01-Home or Self Care Attending Physician: Chris Flores MD Admitting Physician: Chris Flores MD Vital Signs No data available for this [...] hours., # 30 caps, 11 Refill(s), Pharmacy: [facility] #[id number], Take 4 caps for a cold sore. [...] # 16 unknown unit, 2 Refill(s), eRx: [facility] #[id number], USE 2 SPRAYS IN EACH NOSTRIL DAILY NEEDED Start Date: 12/01/14 Status: Ordered levothyroxine 25 mcg (0.025 mg) oral tablet See Instructions, TAKE ONE TABLET BY MOUTH EVERY DAY, # 90 tabs, eRx: [facility] #[id number], TAKE ONE TABLET BY MOUTH EVERY DAY Start Date: 09/07/14 Status: Ordered losartan 25 mg oral tablet 1 tabs, Oral, Daily, # 30 tabs, 11 Refill(s), Pharmacy: [facility] #[id number] , 1 tabs Oral Daily Start Date: 03/31/14 Status: Ordered Nasacort AQ sprays, Nasal, Daily, 0 Refill(s) Start Date: 07/13/14 Status: Ordered omega-3 polyunsaturated fatty acids 1000 mg oral capsule 1 caps, Oral, Daily, 0 Refill(s) Start Date: 12/06/13 Status: Ordered Patanol 0.1% ophthalmic solution 1 drops, Eye-Both, BID, as needed for allergies, # 5 mL, 5 Refill(s), Pharmacy: [facility] #[id number] Start Date: 11/07/14 Status: Ordered Requip 1 mg oral tablet See Instructions, TAKE 1TABLET BY MOUTH 9 TIMES EACH DAY, # 270 tabs, 2 Refill(s ), eRx: [facility] #[id number], TAKE 1TABLET BY MOUTH 9 TIMES EACH [...]
--- OUTSIDE RECORDS SUMMARY | 2016-07-07 06:32 | XMS REPORT | Referral Summary ---
Author Author [facility] Organization [facility] Address Unknown Phone Unavailable Care Team Providers Care Room Service Waiter Name Role Phone Chantelle Helms Primary Care Physician [phone] Encounter VC Date(s): 07/13/14 - 07/13/14 [facility] [address] [facility], [facility] [address] [place], [place] [address] Discharge Diagnosis: Obstructive sleep apnea, adult Discharge [...] hours., # 30 caps, 11 Refill(s), Pharmacy: [facility] #[id number], Take 4 caps for a cold sore. [...] # 16 unknown unit, 2 Refill(s), eRx: [facility] #[id number], USE 2 SPRAYS IN EACH NOSTRIL DAILY NEEDED Start Date: 12/01/14 Status: Ordered levothyroxine 25 mcg (0.025 mg) oral tablet See Instructions, TAKE ONE TABLET BY MOUTH EVERY DAY, # 90 tabs, eRx: [facility] #[id number], TAKE ONE TABLET BY MOUTH EVERY DAY Start Date: 09/07/14 Status: Ordered losartan 25 mg oral tablet 1 tabs, Oral, Daily, # 30 tabs, 11 Refill(s), Pharmacy: [facility] #[id number] , 1 tabs Oral Daily Start Date: 03/31/14 Status: Ordered Nasacort AQ sprays, Nasal, Daily, 0 Refill(s) Start Date: 07/13/14 Status: Ordered omega-3 polyunsaturated fatty acids 1000 mg oral capsule 1 caps, Oral, Daily, 0 Refill(s) Start Date: 12/06/13 Status: Ordered Patanol 0.1% ophthalmic solution 1 drops, Eye-Both, BID, as needed for allergies, # 5 mL, 5 Refill(s), Pharmacy: [facility] #[id number] Start Date: 11/07/14 Status: Ordered Requip 1 mg oral tablet See Instructions, TAKE 1TABLET BY MOUTH 9 TIMES EACH DAY, # 270 tabs, 2 Refill(s ), eRx: [facility] #[id number], TAKE 1TABLET BY MOUTH 9 TIMES EACH DAY Start Date: 12/01/14 Status: Ordered Results No data available for this section Immunizations Vaccine Date Refusal Reason influenza virus vaccine, inactivated1 12/06/13 pneumococcal 23-polyvalent vaccine 11/07/14 tetanus-diphth toxoids (Td) adult/adol 12/28/02 1Result Comment: [12/06/2013] See scanned document Procedures Procedure Date Related Diagnosis Body Site S/P sinus surgery 2009 [facility] BSO - Total abdominal hysterectomy and 2007 [...] Released: 02/13/2003 Document Revised: 06/20/2013 Document Reviewed: [facility] Patient Information 2014 [employer] [facility]. No follow up information was provided. [...]
--- OUTSIDE RECORDS SUMMARY | 2016-07-07 06:32 | XMS REPORT | Referral Summary ---
Author Author [facility] [address] Organization [facility] [employer] [place] Address Unknown Phone Unavailable Care Team Providers Care Flat Clothier Name Role Phone Chantelle Helms Primary Care Physician [phone] Encounter Date(s): 12/07/15 - 12/07/15 [facility] [place] [address] [place], [place] [address] Discharge Diagnosis: Obstructive sleep apnea, adult Discharge Diagnosis: Restless leg syndrome Discharge Disposition: 01-Home or Self Care Attending Physician: Shari Burton Admitting Physician: Shari Burton Vital Signs Most recent to 1 oldest [Reference Range]: Peripheral Pulse 76 bpm Rate [60-100 bpm] (12/07/15 8:27 AM) Blood Pressure 112/78 mmHg [90-140/60-90 mmHg] (12/07/15 8:27 AM) SpO2 99 % (12/07/15 8:27 AM) Problem List Condition Effective Dates Status [...] hours., # 30 caps, 11 Refill(s), Pharmacy: [facility] #[id number], Take 4 caps for a cold sore. May repeat in 8-12 hours. Start Date: 10/16/15 Status: Ordered albuterol CFC free 90 mcg/inh inhalation aerosol 2 puffs, Inhalation, q4hr, as needed for wheezing, # 18 g, 0 Refill(s), Pharmacy : [facility] #[id number] Start Date: 11/06/15 Status: Ordered Keturah Allergy 180 mg, Oral, Daily, 0 Refill(s) Start Date: 09/05/13 Status: Ordered atorvastatin 10 mg oral tablet 10 mg 1 tabs, Oral, Daily, # 90 tabs, 3 Refill(s), Pharmacy: [facility] # [id number], 1 tabs Oral Daily Start Date: 11/29/15 Status: Ordered calcium carbonate 500 mg, Oral, BID, 0 Refill(s) Start Date: 09/05/13 Status: Ordered fluticasone 50 mcg/inh nasal spray See Instructions, USE 2 SPRAYS IN EACH NOSTRIL DAILY NEEDED, # 16 unknown unit, 2 Refill(s), eRx: [facility] #[id number], USE 2 SPRAYS IN EACH NOSTRIL DAILY NEEDED Start Date: 12/01/14 Status: Ordered gabapentin 300 mg oral capsule See Instructions, 1 cap oral around 730PM daily, # 90 tabs, 1 Refill(s), Pharmacy: [facility] #[id number], 1 cap oral around 730PM daily Start Date: 12/07/15 Status: Ordered levothyroxine 25 mcg (0.025 mg) oral tablet See Instructions, TAKE ONE TABLET BY MOUTH EVERY DAY, # 90 tabs, eRx: [facility] #[id number], TAKE ONE TABLET BY MOUTH EVERY DAY Start Date: 11/13/15 Status: Ordered omega-3 polyunsaturated fatty acids 1000 mg oral capsule 1,000 mg 1 caps, Oral, Daily, 0 Refill(s) Start Date: 10/16/15 Status: Ordered Patanol 0.1% ophthalmic solution 1 drops, Eye-Both, BID, as needed for allergies, # 5 mL, 5 Refill(s), Pharmacy: [facility] #[id number] Start Date: 11/07/14 Status: Ordered rOPINIRole 1 mg oral tablet See Instructions, TAKE 1 TABLET BY MOUTH 9 TIMES EACH DAY, # 270 tabs, 3 Refill( s), eRx: [facility] #[id number], TAKE 1 TABLET BY MOUTH 9 TIMES EACH DAY Start Date: 12/04/15 Status: Ordered Singulair 10 mg oral tablet 10 mg 1 tabs, Oral, qPM, # 30 tabs, 11 Refill(s), Pharmacy: [facility] # [id number], 1 tabs Oral qPM Start Date: 07/17/15 Status: Ordered Symbicort 160 mcg-4.5 mcg/inh inhalation aerosol 2 puffs, Inhalation, BID, as needed for asthma, # 1 Each, 5 Refill(s), Pharmacy : [facility] #[id number] Start Date: 11/05/15 Status: Ordered Results No data available for this section Immunizations Vaccine Date Refusal Reason tetanus/diphth/pertuss (Tdap) adult/adol 11/28/15 influenza virus vaccine, inactivated1 12/06/13 pneumococcal 13-valent conjugate vaccine 11/28/15 pneumococcal 23-polyvalent vaccine 11/07/14 tetanus-diphth toxoids (Td) adult/adol 12/28/02 1Result Comment: [12/06/2013] See scanned document Procedures Procedure Date Related Diagnosis Body Site S/P sinus surgery 2009 [facility] BSO - Total abdominal hysterectomy and 2007 bilateral salpingo-oophorectomy1 1had endometriosis and ovarian cysts; nothing precancerous; no abnormal pap smears Social History Social History Type Response Smoking Status Never smoker Assessment and Plan Extracted from: Title: Office Visit Note Author: Shari Burton Date: 12/07/15 Assessment/Plan 1.Obstructive sleep apnea, adult - Adequate treatment with CPAP symptomatically and objectively at current pressure withsuboptimal adherence to therapy on account of recent illness and traveling. Continue CPAP with all sleep at 7-12cm. Work on increasing usage. -CPAP download reviewed with the patient and patient is benefitting from treatment. -Avoid driving , partaking in hazardous activities, or operating heavy machinery if drowsy. -Continue appropriate cleaning of the machine/humidifier and update of all supplies including mask , tubing , and filters . -Return for follow-up in in about 6 weeks at appt already scheduled with . Return/call sooner if any problems arise in the meantime. Restless leg syndrome -Significant improvement in symptoms since addition of gabapentin 300mg at 7PM at last visit. Will start tapering down on her large doses of Requip. She will start by decreasing her evening dose from 4mg to 2mg at bedtime. Keep daytime doses as is for now. There is concern for augmentation as a result of the Requip and symptoms seem better controlled with the gabapentin. -Lab checked and all normal. -F/u in 6 weeks for recheck. I discussed continuing Requip taper. I also discussed room for titration on the gabapentin if she does have breakthrough nighttime symptoms and she will call.
--- OUTSIDE RECORDS SUMMARY | 2016-07-07 06:32 | XMS REPORT | Referral Summary ---
Author Author [facility] [employer] [place] Organization [facility] [place] Address Unknown Phone Unavailable Care Team Providers Care Yarn Washer Name Role Phone Chantelle Helms Primary Care Physician [phone] Encounter Date(s): 04/23/16 - 04/23/16 [facility] [place] [address] [place], [place] [address] Discharge Diagnosis: Insomnia Discharge Diagnosis: Restless legs syndrome (RLS) Discharge Disposition: 01-Home or Self Care Attending Physician: Harinder Savage MD Admitting Physician: Harinder Savage MD Vital Signs Most recent to 1 oldest [Reference Range]: Peripheral Pulse 86 bpm Rate [60-100 bpm] (04/23/16 8:33 AM) Blood Pressure 124/74 mmHg [90-140/60-90 mmHg] (04/23/16 8:33 AM) SpO2 95 % (04/23/16 8:33 AM) Problem List Condition Effective Dates Status [...] hours., # 30 caps, 11 Refill(s), Pharmacy: [facility] #[id number], Take 4 caps for a cold sore. May repeat in 8-12 hours. Start Date: 10/16/15 Status: Ordered albuterol CFC free 90 mcg/inh inhalation aerosol 2 puffs, Inhalation, q4hr, as needed for wheezing, # 18 g, 0 Refill(s), Pharmacy : [facility] #[id number] Start Date: 11/06/15 Status: Ordered Keturah Allergy 180 mg, Oral, Daily, 0 Refill(s) Start Date: 09/05/13 Status: Ordered calcium carbonate 500 mg, Oral, BID, 0 Refill(s) Start Date: 09/05/13 Status: Ordered fluticasone 50 mcg/inh nasal spray See Instructions, USE 2 SPRAYS IN EACH NOSTRIL DAILY NEEDED, # 16 unknown unit, 2 Refill(s), eRx: [facility] #[id number], USE 2 SPRAYS IN EACH NOSTRIL DAILY NEEDED Start Date: 12/01/14 Status: Ordered Horizant 300 mg oral tablet, extended release See Instructions, 1 tabs Oral q hs along with 600mg tab, # 30 tabs, 2 Refill(s) , called to pharmacy (Rx) Start Date: 03/27/16 Status: Ordered Horizant 600 mg oral tablet, extended release See Instructions, 600 mg Oral q hs along with 300mg tab, # 30 tabs, 2 Refill(s) , called to pharmacy (Rx) Start Date: 03/27/16 Status: Ordered levothyroxine 25 mcg (0.025 mg) oral tablet See Instructions, TAKE ONE TABLET BY MOUTH EVERY DAY, # 90 tabs, eRx: [facility] #[id number] Start Date: 02/19/16 Status: Ordered omega-3 polyunsaturated fatty acids 1000 mg oral capsule 1,000 mg 1 caps, Oral, Daily, 0 Refill(s) Start Date: 10/16/15 Status: Ordered Patanol 0.1% ophthalmic solution 1 drops, Eye-Both, BID, as needed for allergies, # 5 mL, 5 Refill(s), Pharmacy: [facility] #[id number] Start Date: 11/07/14 Status: Ordered Singulair 10 mg oral tablet 10 mg 1 tabs, Oral, qPM, # 30 tabs, 11 Refill(s), Pharmacy: [facility] # [id number], 1 tabs Oral qPM Start Date: 07/17/15 Status: Ordered Symbicort 160 mcg-4.5 mcg/inh inhalation aerosol 2 puffs, Inhalation, BID, as needed for asthma, # 1 Each, 5 Refill(s), Pharmacy : [facility] #[id number] Start Date: 11/05/15 Status: Ordered Results No data available for this section Immunizations Given and Recorded Vaccine Date Status Refusal Reason tetanus/diphth/pertuss (Tdap) adult/adol 11/28/15 Given hepatitis A adult vaccine 04/09/16 Given influenza virus vaccine, inactivated1 12/06/13 Recorded pneumococcal 13-valent conjugate vaccine 11/28/15 Given pneumococcal 23-polyvalent vaccine 11/07/14 Given tetanus-diphth toxoids (Td) adult/adol 12/28/02 Recorded 1Result Comment: [12/06/2013] See scanned document Procedures Procedure Date Related Diagnosis Body Site S/P sinus surgery 2009 [facility] B[facility] - Total abdominal hysterectomy and 2007 bilateral salpingo-oophorectomy1 1had endometriosis and ovarian cysts; nothing precancerous; no abnormal pap smears Social History Social History Type Response Smoking Status Never smoker Assessment and Plan Extracted from: Title: Office Visit Note Author: Harinder Savage Date: 04/23/16 Assessment/Plan 1.Restless legs syndrome (RLS) - Better controlled. - Insomnia side effect, uncertain etiology. - Check sleep diaries. - Follow up in 2 weeks. - No changes to medication required. - Patient advised to avoid driving and other potentially harmful activities if feeling sleepy, drowsy or otherwise impaired. Countermeasures such as pulling over to nap and napping before driving discussed. No need to bring CPAP to next visit.
--- OUTSIDE RECORDS SUMMARY | 2016-07-07 06:32 | XMS REPORT | Continuity of Care Document ---
Author Author Tom GARCIA, Arielle Norwood [facility] Ambulatory Address [address] [place] [address] Phone Care Team Providers Care X Ray Examiner Of Aircraft Name Role Phone Nishant Helms MARIAJOSE Unavailable Payers Payer name Insurance type Covered democrat ID Authorization(s) Unknown Problems Condition Effective Dates (start - stop) Clinical Status Cough - *Acute Other acute sinusitis - *Acute Headache - *Chronic Allergic rhinitis - *Chronic Allergic conjunctivitis - *Chronic RLS (restless legs syndrome) - *Chronic Allergic rhinitis, cause unspecified - *Chronic Vertigo - Intermittent Sphenoid sinusitis - *Acute Frontal sinusitis - *Acute Acute bronchitis - *Acute Vertigo - *Acute Restless legs syndrome - *Chronic Common migraine - *Chronic Hot flashes due to surgical menopause - *Chronic RESTLESS LEGS SYNDROME - *Chronic Common migraine without mention of intractable migraine - * Chronic ALLERGIC RHINITIS NOS - VARICELLA UNCOMPLICATED - Family History Family Member Diagnosis Age At Onset Status Unknown Social History Social History Element Description Quantity Unknown Allergies, Adverse Reactions, Alerts Substance Reaction Severity Status PENICILLINS Rash Unknown Medications Medication Instructions Dosage Effective Dates (start - stop) Status TAMIFLU (unknown strength) - Active prednisone 20 mg tablet take 1 (20MG) by oral route every day 20 MG - Active Tessalon Perles 100 mg capsule take 1 capsule (100MG) by oral route 3 times every day 100 MG - Active cefdinir 300 mg capsule take 1 capsule (300MG) by oral route every 12 hours 300 MG - Active Calcium 500 500 mg calcium (1,250 mg) tablet take 1 by MOUTH BID 2012 - Active Fish Oil 360 mg-1,200 mg capsule TAKE ONE DAILY - Active Keturah 180 mg tablet take 1 Tablet by Oral route every day 0 - Active ibuprofen 200 mg tablet take 2 -3 Tablets by oral route 3-4 times every week as needed for HAs - Active Tylenol Extra Strength 500 mg tablet take 2 Tablet (1000MG) by oral route 2 times a month as needed for HAs. - Active levothyroxine 25 mcg tablet take 1 tablet (25MCG) by oral route every day 25 MCG - Active acyclovir 200 mg capsule TAKE 4 CAPSULES BY MOUTH FOR COLD SORE ONCE. MAY REPEAT DOSE ONCE IN 12 HOURS IF NEEDED. - Active cefdinir 300 mg capsule take 2 capsule (600MG) by oral route every day 600 MG - Active fluticasone 50 mcg/actuation nasal spray,suspension SPRAY 2 SPRAYS IN EACH NOSTRIL DAILY NEEDED - Active Sprintec (28) 0.25 mg-35 mcg tablet take 1 tablet by oral route every day 0 - Active Requip 1 mg tablet Take 1 tablet by mouth 7 times a day. - Active Immunizations Vaccine Date Status Comments Unknown Results Test Name Date and Time Measure Units Reference Range Abnormal Flag Comments Unknown Vital Signs Date / Time: Height Weight Pulse Rate Blood Pressure Temperature /14:19:00 66.00 in 249.60 lbs 64 /min 114/84 mm[Hg] 97.2 F Procedures Procedure Date Unknown Encounters Encounter Location Date Patient Visit [facility] [address] [facility] Patient Visit [facility] Patient Visit [facility] Patient Visit [facility] Patient Visit [facility] Patient Visit [facility] Patient Visit [facility] Patient Visit [facility] Patient Visit [facility] Patient Visit [facility] Patient Visit Conversion Advance Directives Directive Effective Date Unknown
--- OUTSIDE RECORDS SUMMARY | 2016-07-07 06:32 | XMS REPORT | Referral Summary ---
Author Author [facility] Organization [facility] Address Unknown Phone Unavailable Care Team Providers Care Computer Instructor Name Role Phone Chantelle Helms Primary Care Physician [phone] Encounter VC Date(s): 07/13/14 - 07/13/14 [facility] [address] [facility], [facility] [address] [place], [place] [address] Discharge Diagnosis: Obstructive sleep [...] hours., # 30 caps, 11 Refill(s), Pharmacy: [facility] #[id number], Take 4 caps for a cold sore. [...] # 16 unknown unit, 2 Refill(s), eRx: [facility] #[id number], USE 2 SPRAYS IN EACH NOSTRIL DAILY NEEDED Start Date: 12/01/14 Status: Ordered levothyroxine 25 mcg (0.025 mg) oral tablet See Instructions, TAKE ONE TABLET BY MOUTH EVERY DAY, # 90 tabs, eRx: [facility] #[id number], TAKE ONE TABLET BY MOUTH EVERY DAY Start Date: 09/07/14 Status: Ordered losartan 25 mg oral tablet 1 tabs, Oral, Daily, # 30 tabs, 11 Refill(s), Pharmacy: [facility] #[id number] , 1 tabs Oral Daily Start Date: 03/31/14 Status: Ordered Nasacort AQ sprays, Nasal, Daily, 0 Refill(s) Start Date: 07/13/14 Status: Ordered omega-3 polyunsaturated fatty acids 1000 mg oral capsule 1 caps, Oral, Daily, 0 Refill(s) Start Date: 12/06/13 Status: Ordered Patanol 0.1% ophthalmic solution 1 drops, Eye-Both, BID, as needed for allergies, # 5 mL, 5 Refill(s), Pharmacy: [facility] #[id number] Start Date: 11/07/14 Status: Ordered Requip 1 mg oral tablet See Instructions, TAKE 1TABLET BY MOUTH 9 TIMES EACH DAY, # 270 tabs, 2 Refill(s ), eRx: [facility] #[id number], TAKE 1TABLET BY MOUTH 9 TIMES EACH DAY Start Date: 12/01/14 Status: Ordered Results No data available for this section Immunizations Vaccine Date Refusal Reason influenza virus vaccine, inactivated1 12/06/13 pneumococcal 23-polyvalent vaccine 11/07/14 tetanus-diphth toxoids (Td) adult/adol 12/28/02 1Result Comment: [12/06/2013] See scanned document Procedures Procedure Date Related Diagnosis Body Site S/P sinus surgery 2009 [facility] BSO - Total abdominal hysterectomy and 2007 [...] Released: 02/13/2003 Document Revised: 06/20/2013 Document Reviewed: [facility] Patient Information 2014 [employer] [facility]. No follow up information was provided. [...]
--- OUTSIDE RECORDS SUMMARY | 2016-07-07 06:32 | XMS REPORT | Referral Summary ---
Author Author [facility] Organization [facility] Address Unknown Phone Unavailable Care Team Providers Care Human Resources Partner Name Role Phone Chantelle Helms Primary Care Physician [phone] Encounter Date(s): 08/18/14 - 08/18/14 [facility] [address] [facility], [facility] [address] [place], [place] [address] Discharge Disposition: 01-Home or Self Care Attending Physician: Chris Flores MD Admitting Physician: Chris Flores MD Referring Physician: Nishant Helms MD Vital Signs No data available for [...] hours., # 30 caps, 11 Refill(s), Pharmacy: [facility] #[id number], Take 4 caps for a cold sore. [...] # 16 unknown unit, 2 Refill(s), eRx: [facility] #[id number], USE 2 SPRAYS IN EACH NOSTRIL DAILY NEEDED Start Date: 12/01/14 Status: Ordered levothyroxine 25 mcg (0.025 mg) oral tablet See Instructions, TAKE ONE TABLET BY MOUTH EVERY DAY, # 90 tabs, eRx: [facility] #[id number], TAKE ONE TABLET BY MOUTH EVERY DAY Start Date: 09/07/14 Status: Ordered losartan 25 mg oral tablet 1 tabs, Oral, Daily, # 30 tabs, 11 Refill(s), Pharmacy: [facility] #[id number] , 1 tabs Oral Daily Start Date: 03/31/14 Status: Ordered Nasacort AQ sprays, Nasal, Daily, 0 Refill(s) Start Date: 07/13/14 Status: Ordered omega-3 polyunsaturated fatty acids 1000 mg oral capsule 1 caps, Oral, Daily, 0 Refill(s) Start Date: 12/06/13 Status: Ordered Patanol 0.1% ophthalmic solution 1 drops, Eye-Both, BID, as needed for allergies, # 5 mL, 5 Refill(s), Pharmacy: [facility] #[id number] Start Date: 11/07/14 Status: Ordered Requip 1 mg oral tablet See Instructions, TAKE 1TABLET BY MOUTH 9 TIMES EACH DAY, # 270 tabs, 2 Refill(s ), eRx: [facility] #[id number], TAKE 1TABLET BY MOUTH 9 TIMES EACH [...] smoker Assessment and Plan Extracted from: Title: CPAP S10 SET UP 5-12CM, Author: Nica Martinez CHILD ADVOCATE Date: 08/18 ESON:M INITIAL SET UP 5-12CM, ESON:M 3MO RENT / SALE 11/18/14 DR FLORES masks tried on patient P10, F10, WISP
--- OUTSIDE RECORDS SUMMARY | 2016-07-07 06:33 | XMS REPORT | Referral Summary ---
Author Author [facility] [place] Organization [facility] [place] Address Unknown Phone Unavailable Care Team Providers Care Clinical Abstractor Name Role Phone Chantelle Helms Primary Care Physician [phone] Encounter Date(s): 12/10/15 - 12/10/15 [facility] [place] [address] [place], [place] [address] Discharge Disposition: 01-Home or Self Care Attending Physician: Shari Burton Admitting Physician: Shari Burton Vital Signs No data available for this [...] hours., # 30 caps, 11 Refill(s), Pharmacy: [facility] #[id number], Take 4 caps for a cold sore. May repeat in 8-12 hours. Start Date: 10/16/15 Status: Ordered albuterol CFC free 90 mcg/inh inhalation aerosol 2 puffs, Inhalation, q4hr, as needed for wheezing, # 18 g, 0 Refill(s), Pharmacy : [facility] #[id number] Start Date: 11/06/15 Status: Ordered Keturah Allergy 180 mg, Oral, Daily, 0 Refill(s) Start Date: 09/05/13 Status: Ordered atorvastatin 10 mg oral tablet 10 mg 1 tabs, Oral, Daily, # 90 tabs, 3 Refill(s), Pharmacy: [facility] # [id number], 1 tabs Oral Daily Start Date: 11/29/15 Status: Ordered calcium carbonate 500 mg, Oral, BID, 0 Refill(s) Start Date: 09/05/13 Status: Ordered fluticasone 50 mcg/inh nasal spray See Instructions, USE 2 SPRAYS IN EACH NOSTRIL DAILY NEEDED, # 16 unknown unit, 2 Refill(s), eRx: [facility] #[id number], USE 2 SPRAYS IN EACH NOSTRIL DAILY NEEDED Start Date: 12/01/14 Status: Ordered gabapentin 300 mg oral capsule See Instructions, 1 cap oral around 730PM daily, # 90 tabs, 1 Refill(s), Pharmacy: [facility] #[id number], 1 cap oral around 730PM daily Start Date: 12/07/15 Status: Ordered levothyroxine 25 mcg (0.025 mg) oral tablet See Instructions, TAKE ONE TABLET BY MOUTH EVERY DAY, # 90 tabs, eRx: [facility] #[id number], TAKE ONE TABLET BY MOUTH EVERY DAY Start Date: 11/13/15 Status: Ordered omega-3 polyunsaturated fatty acids 1000 mg oral capsule 1,000 mg 1 caps, Oral, Daily, 0 Refill(s) Start Date: 10/16/15 Status: Ordered Patanol 0.1% ophthalmic solution 1 drops, Eye-Both, BID, as needed for allergies, # 5 mL, 5 Refill(s), Pharmacy: [facility] #[id number] Start Date: 11/07/14 Status: Ordered rOPINIRole 1 mg oral tablet See Instructions, TAKE 1 TABLET BY MOUTH 9 TIMES EACH DAY, # 270 tabs, 3 Refill( s), eRx: [facility] #[id number], TAKE 1 TABLET BY MOUTH 9 TIMES EACH DAY Start Date: 12/04/15 Status: Ordered Singulair 10 mg oral tablet 10 mg 1 tabs, Oral, qPM, # 30 tabs, 11 Refill(s), Pharmacy: [facility] # [id number], 1 tabs Oral qPM Start Date: 07/17/15 Status: Ordered Symbicort 160 mcg-4.5 mcg/inh inhalation aerosol 2 puffs, Inhalation, BID, as needed for asthma, # 1 Each, 5 Refill(s), Pharmacy : [facility] #[id number] Start Date: 11/05/15 Status: Ordered Results No [...]
--- OUTSIDE RECORDS SUMMARY | 2016-07-07 06:33 | XMS REPORT | Referral Summary ---
Author Author [facility] [place] Organization [facility], [employer] [place] Address Unknown Phone Unavailable Care Team Providers Care Manager Gallery Name Role Phone Chantelle Helms Primary Care Physician [phone] Encounter Date(s): 11/02/15 - 11/02/15 [facility], [facility] [facility] [facility] [address] [place], [place] [address] Discharge Disposition: 01-Home or Self Care Attending Physician: Shari Burton Vital Signs No data [...] hours., # 30 caps, 11 Refill(s), Pharmacy: [facility] #[id number], Take 4 caps for a cold sore. May repeat in 8-12 hours. Start Date: 10/16/15 Status: Ordered Keturah Allergy 180 mg, Oral, Daily, 0 Refill(s) Start Date: 09/05/13 Status: Ordered calcium carbonate 500 mg, Oral, BID, 0 Refill(s) Start Date: 09/05/13 Status: Ordered fluticasone 50 mcg/inh nasal spray See Instructions, USE 2 SPRAYS IN EACH NOSTRIL DAILY NEEDED, # 16 unknown unit, 2 Refill(s), eRx: [facility] #[id number], USE 2 SPRAYS IN EACH NOSTRIL DAILY NEEDED Start Date: 12/01/14 Status: Ordered gabapentin 100 mg oral capsule See Instructions, 1 cap daily at 7PM x 3 days, then 2 caps daily at 7PM x 3 days , then 3 caps daily at 7PM until next appt., # 60 tabs, 1 Refill(s), Pharmacy: [facility] #[id number], 1 cap daily at 7PM x 3 days, then 2 caps daily at 7PM x 3 days, th... Start Date: 11/02/15 Status: Ordered levothyroxine 25 mcg (0.025 mg) oral tablet See Instructions, TAKE ONE TABLET BY MOUTH EVERY DAY, # 90 tabs, eRx: [facility] #[id number], TAKE ONE TABLET BY MOUTH EVERY DAY [...] allergies, # 5 mL, 5 Refill(s), Pharmacy: [facility] #[id number] Start Date: 11/07/14 Status: Ordered Requip 1 mg oral tablet See Instructions, TAKE 1 TABLET BY MOUTH 9 TIMES EACH DAY, # 270 tabs, 2 Refill( s), eRx: [facility] #[id number], TAKE 1 TABLET BY MOUTH 9 TIMES EACH DAY Start Date: 05/21/15 Status: Ordered Singulair 10 mg oral tablet 10 mg 1 tabs, Oral, qPM, # 30 tabs, 11 Refill(s), Pharmacy: [facility] # [id number], 1 tabs Oral qPM Start Date: 07/17/15 Status: Ordered Symbicort 160 mcg-4.5 mcg/inh inhalation aerosol 2 puffs, Inhalation, BID, as needed for asthma, # 10 g, 11 Refill(s) Start Date: 07/17/15 Status: Ordered Results No data available for [...] Assessment and Plan Extracted from: Title: CPAP CHANGE/EDUCATION Author: Ana Ponce PURCHASING INTERN Date: 11/02/15 Changed CPAP pressure to 7-12 cm h20 per Shari Gonzalez Gave pt education on humidifier use.
--- OUTSIDE RECORDS SUMMARY | 2016-07-07 06:33 | XMS REPORT | Referral Summary ---
Author Author [facility] Organization [facility] [place], [facility] Address Unknown Phone Unavailable Care Team Providers Care Graphite Disk Assembler Name Role Phone Chantelle Helms Primary Care Physician [phone] Encounter VC Date(s): 09/17/14 - 09/17/14 [facility] [place], [facility] [address] [place], [place] [address] Discharge Disposition: 01-Home or Self Care Attending Physician: [facility], [facility] Admitting Physician: [facility], [facility] Vital Signs No data available for this [...] hours., # 30 caps, 11 Refill(s), Pharmacy: [facility] #[id number], Take 4 caps for a cold sore. [...] # 16 unknown unit, 2 Refill(s), eRx: [facility] #[id number], USE 2 SPRAYS IN EACH NOSTRIL DAILY NEEDED Start Date: 12/01/14 Status: Ordered levothyroxine 25 mcg (0.025 mg) oral tablet See Instructions, TAKE ONE TABLET BY MOUTH EVERY DAY, # 90 tabs, eRx: [facility] #[id number], TAKE ONE TABLET BY MOUTH EVERY DAY Start Date: 03/26/15 Status: Ordered losartan 25 mg oral tablet 1 tabs, Oral, Daily, # 30 tabs, 11 Refill(s), Pharmacy: [facility] #[id number] , 1 tabs Oral Daily Start Date: 03/31/14 Status: Ordered Nasacort AQ sprays, Nasal, Daily, 0 Refill(s) Start Date: 07/13/14 Status: Ordered omega-3 polyunsaturated fatty acids 1000 mg oral capsule 1 caps, Oral, Daily, 0 Refill(s) Start Date: 12/06/13 Status: Ordered Patanol 0.1% ophthalmic solution 1 drops, Eye-Both, BID, as needed for allergies, # 5 mL, 5 Refill(s), Pharmacy: [facility] #[id number] Start Date: 11/07/14 Status: Ordered Requip 1 mg oral tablet See Instructions, TAKE 1 TABLET BY MOUTH 9 TIMES EACH DAY, # 270 tabs, 1 Refill( s), eRx: [facility] #[id number], TAKE 1 TABLET BY MOUTH 9 TIMES [...]
--- OUTSIDE RECORDS SUMMARY | 2016-07-07 06:33 | XMS REPORT | Referral Summary ---
Author Author [facility] Organization [facility] [place], [facility] Address Unknown Phone Unavailable Care Team Providers Care Compensation Director Name Role Phone Chantelle Helms Primary Care Physician [phone] Encounter VC Date(s): 11/18/14 - 11/18/14 [facility] [place], [facility] [address] [place], [place] [address] Discharge Disposition: 01-Home or Self Care Attending Physician: Lin Agrawal [facility] Admitting Physician: [facility] Tanja [facility] Vital Signs No data [...] 11 Refill(s), Pharmacy: [facility] #[id number], Take 4 caps for a cold sore. May repeat in 8-12 hours. Start Date: 03/15/14 Status: Ordered Kteurah Allergy 180 mg, Oral, Daily, 0 Refill(s) [...] 2 Refill(s), eRx: [facility] #[id number], USE 2 SPRAYS IN EACH NOSTRIL DAILY NEEDED Start Date: 12/01/14 Status: Ordered levothyroxine 25 mcg (0.025 mg) oral tablet See Instructions, TAKE ONE TABLET BY MOUTH EVERY DAY, # 90 tabs, eRx: [facility] #[id number], TAKE ONE TABLET BY MOUTH EVERY DAY Start Date: 03/26/15 Status: Ordered losartan 25 mg oral tablet 1 tabs, Oral, Daily, # 30 tabs, 11 Refill(s), Pharmacy: [facility] #[id number] , 1 tabs Oral Daily Start Date: 03/31/14 Status: Ordered Nasacort AQ sprays, Nasal, Daily, 0 Refill(s) Start Date: 07/13/14 Status: Ordered omega-3 polyunsaturated fatty acids 1000 mg oral capsule 1 caps, Oral, Daily, 0 Refill(s) Start Date: 12/06/13 Status: Ordered Patanol 0.1% ophthalmic solution 1 drops, Eye-Both, BID, as needed for allergies, # 5 mL, 5 Refill(s), Pharmacy: [facility] #[id number] Start Date: 11/07/14 Status: Ordered Requip 1 mg oral tablet See Instructions, TAKE 1 TABLET BY MOUTH 9 TIMES EACH DAY, # 270 tabs, 2 Refill( s), eRx: [facility] #[id number], TAKE 1 TABLET BY MOUTH 9 TIMES EACH DAY Start Date: 05/21/15 Status: Ordered Results No data available for [...]
--- OUTSIDE RECORDS SUMMARY | 2016-07-07 06:33 | XMS REPORT | Referral Summary ---
Author Author [facility] Organization [facility] Address Unknown Phone Unavailable Care Team Providers Care Physical Therapy Aid Name Role Phone Chantelle Helms Primary Care Physician [phone] Encounter VC Date(s): 07/13/14 - 07/13/14 [facility] [address] [facility], [facility] [address] [place], [place] [address] Discharge Diagnosis: Obstructive sleep apnea, adult [...] hours., # 30 caps, 11 Refill(s), Pharmacy: [facility] #[id number], Take 4 caps for a cold sore. [...] # 16 unknown unit, 2 Refill(s), eRx: [facility] #[id number], USE 2 SPRAYS IN EACH NOSTRIL DAILY NEEDED Start Date: 12/01/14 Status: Ordered levothyroxine 25 mcg (0.025 mg) oral tablet See Instructions, TAKE ONE TABLET BY MOUTH EVERY DAY, # 90 tabs, eRx: [facility] #[id number], TAKE ONE TABLET BY MOUTH EVERY DAY Start Date: 09/07/14 Status: Ordered losartan 25 mg oral tablet 1 tabs, Oral, Daily, # 30 tabs, 11 Refill(s), Pharmacy: [facility] #[id number] , 1 tabs Oral Daily Start Date: 03/31/14 Status: Ordered Nasacort AQ sprays, Nasal, Daily, 0 Refill(s) Start Date: 07/13/14 Status: Ordered omega-3 polyunsaturated fatty acids 1000 mg oral capsule 1 caps, Oral, Daily, 0 Refill(s) Start Date: 12/06/13 Status: Ordered Patanol 0.1% ophthalmic solution 1 drops, Eye-Both, BID, as needed for allergies, # 5 mL, 5 Refill(s), Pharmacy: [facility] #[id number] Start Date: 11/07/14 Status: Ordered Requip 1 mg oral tablet See Instructions, TAKE 1TABLET BY MOUTH 9 TIMES EACH DAY, # 270 tabs, 2 Refill(s ), eRx: [facility] #[id number], TAKE 1TABLET BY MOUTH 9 TIMES EACH DAY Start Date: 12/01/14 Status: Ordered Results No data available for this section Immunizations Vaccine Date Refusal Reason influenza virus vaccine, inactivated1 12/06/13 pneumococcal 23-polyvalent vaccine 11/07/14 tetanus-diphth toxoids (Td) adult/adol 12/28/02 1Result Comment: [12/06/2013] See scanned document Procedures Procedure Date Related Diagnosis Body Site S/P sinus surgery 2009 [facility] BSO - Total abdominal hysterectomy and 2007 [...] Released: 02/13/2003 Document Revised: 06/20/2013 Document Reviewed: [facility] Patient Information 2014 [employer]. No follow up information was provided. Extracted [...]
--- OUTSIDE RECORDS SUMMARY | 2016-07-07 06:33 | XMS REPORT | Referral Summary ---
Author Organization Unknown Address Unknown Phone Unavailable Care Team Providers Care Milieu Technician Name Role Phone Chantelle Helms Primary Care Physician [phone] Encounter VC Date(s): 05/22/14 - 05/22/14 [facility] [address] [place], [place] [address] Discharge Diagnosis: Fever Discharge Diagnosis: Cough Discharge Diagnosis: Influenza B Discharge Diagnosis: Fever Discharge Diagnosis: COUGH Discharge Disposition: Home or Self Care Attending Physician: Lillian Villarreal APRN Admitting Physician: Lillian Villarreal APRN Vital Signs Most recent to 1 oldest [Reference Range]: Temperature Tympanic 36.3 degC [36.6-38.1 degC] *LOW* (05/22/14 9:55 AM) Peripheral Pulse 82 bpm Rate [60-100 bpm] (05/22/14 9:55 AM) Blood Pressure 118/72 mmHg [90-140/60-90 mmHg] (05/22/14 9:55 AM) Most recent to 1 oldest [Reference Range]: SpO2 97 % (05/22/14 9:55 AM) Problem List Condition Effective Dates Status Health Status Informant Acute Active bronchitis(Confirmed ) Acute Active sinusitis(Confirmed) Allergic Active rhinitis(Confirmed) Benign essential Active hypertension(Confirm ed) Chest Active discomfort(Confirmed ) Chicken Active pox(Confirmed) Chronic Active headaches(Confirmed) Chronic low back Active pain(Confirmed) Dry eyes(Confirmed) Active Dyspnea(Confirmed) Active Edema(Confirmed) Active Elevated Active BP(Confirmed) Fracture of multiple Active transverse processes(Confirmed) Hayfever(Confirmed) Active Influenza Active B(Confirmed) Hot flashes due to Active surgical menopause(Confirmed) Mitral valve Active regurgitation(Confir med) Left leg Active weakness(Confirmed) Overweight(Confirmed Active ) Left leg Active paresthesias(Confirm ed) Pneumonia(Confirmed) Active Restless legs Active syndrome (RLS)(Confirmed) Sinus Active infection(Confirmed) Snoring Active disorder(Confirmed) Allergies, Adverse Reactions, Alerts Substance Reaction Severity Status penicillin Rash Active Medications acyclovir 200 mg oral capsule See Instructions, Take 4 caps for a cold sore. May repeat in 8-12 hours., # 30 caps, 11 Refill(s), Pharmacy: [facility] #[id number], Take 4 caps for a cold sore. May repeat in 8-12 hours. Special Instructions: Take 4 caps for a cold sore. May repeat in 8-12 hours. Start Date: 03/15/14 Status: Ordered Keturah Allergy 180 mg, Oral, Daily, 0 Refill(s) Start Date: 09/05/13 Status: Ordered azithromycin 250 mg oral tablet See Instructions, Take 2 tabs today, then 1 tab daily for 4 days., # 6 tabs, 0 Refill(s), Pharmacy: [facility] #[id number], Take 2 tabs today, then 1 tab daily for 4 days. Special Instructions: Take 2 tabs today, then 1 tab daily for 4 days. Start Date: 05/22/14 Stop Date: 05/28/14 Status: Ordered calcium carbonate 500 mg, Oral, BID, 0 Refill(s) Start Date: 09/05/13 Status: Ordered estradiol 2 mg oral tablet 1 tabs, Oral, Daily, 0 Refill(s) Start Date: 09/05/13 Status: Ordered fluticasone 50 mcg/inh nasal spray See Instructions, USE 2 SPRAYS IN EACH NOSTRIL DAILY NEEDED, # 16 unknown unit, 3 Refill(s), eRx: [facility] #[id number], USE 2 SPRAYS IN EACH NOSTRIL DAILY NEEDED Special Instructions: USE 2 SPRAYS IN EACH NOSTRIL DAILY NEEDED Start Date: 03/01/14 Status: Ordered levothyroxine 25 mcg (0.025 mg) oral tablet See Instructions, TAKE ONE TABLET BY MOUTH EVERY DAY, # 90 tabs, eRx: [facility] #[id number], TAKE ONE TABLET BY MOUTH EVERY DAY Special Instructions: TAKE ONE TABLET BY MOUTH EVERY DAY Start Date: 04/05/14 Status: Ordered losartan 25 mg oral tablet 1 tabs, Oral, Daily, # 30 tabs, 11 Refill(s), Pharmacy: [facility] #[id number] , 1 tabs Oral Daily Start Date: 03/31/14 Status: Ordered omega-3 polyunsaturated fatty acids 1000 mg oral capsule 1 caps, Oral, Daily, 0 Refill(s) Start Date: 12/06/13 Status: Ordered Requip 1 mg oral tablet See Instructions, TAKE ONE TABLET BY MOUTH 9 TIMES A DAY, # 270 tabs, 11 Refill( s), Pharmacy: [facility] #[id number], TAKE ONE TABLET BY MOUTH 9 TIMES A DAY Special Instructions: TAKE ONE TABLET BY MOUTH 9 TIMES A DAY Start Date: 12/06/13 Status: Ordered Tamiflu 75 mg oral capsule 1 caps, Oral, BID, X 5 days, # 10 caps, 0 Refill(s), Pharmacy: [facility] #[id number], 1 caps Oral BID,x5 days Start Date: 05/19/14 Stop Date: 05/24/14 Status: Ordered Results Hematology Most recent to 1 oldest [Reference Range]: WBC [5.0-10.0 K/uL] 3.3 K/uL *LOW* (05/22/14 10:47 AM) RBC [3.70-5.20 M/uL] 5.06 M/uL (05/22/14 10:47 AM) Hgb [12.0-16.0 14.4 gm/dL gm/dL] (05/22/14 10:47 AM) Hct [37.0-47.0 %] 43.6 % (05/22/14 10:47 AM) MCV [80.0-96.0 fL] 86.2 fL (05/22/14 10:47 AM) MCH [26.0-34.0 pg] 28.5 pg (05/22/14 10:47 AM) MCHC [32.0-36.0 33.0 gm/dL gm/dL] (05/22/14 10:47 AM) RDW [0.0-14.5 %] 13.5 % (05/22/14 10:47 AM) Platelet [150-400 105 K/uL K/uL] *LOW* (05/22/14 10:47 AM) MPV [8.8-14.8 fL] 11.0 fL (05/22/14 10:47 AM) Neutrophils [50-70 31 % %] *LOW* (05/22/14 10:47 AM) Band Man [0-6 %] 4 % (05/22/14 10:47 AM) Lymphocytes [20-40 55 % %] *HI* (05/22/14 10:47 AM) Monocytes [4-8 %] 9 % *HI* (05/22/14 10:47 AM) Eosinophils [0-6 %] 1 % (05/22/14 10:47 AM) Basophils [0-2 %] 0 % (05/22/14 10:47 AM) Neutro Absolute 1.16 K/uL [2.50-7.00 K/uL] *LOW* (05/22/14 10:47 AM) Lymph Absolute 1.82 K/uL [1.00-4.00 K/uL] (05/22/14 10:47 AM) [place] Absolute 0.30 K/uL [0.20-0.80 K/uL] (05/22/14 10:47 AM) Eos Absolute 0.03 K/uL [0.00-0.60 K/uL] (05/22/14 10:47 AM) Baso Absolute 0.00 K/uL [0.00-0.30 K/uL] (05/22/14 10:47 AM) Immunizations Vaccine Date Refusal Reason influenza virus vaccine, inactivated1 12/06/13 tetanus-diphth toxoids (Td) adult/adol 12/28/02 1Result Comment: [12/06/2013] See scanned document Procedures Procedure Date Related Diagnosis Body Site Collection of venous blood by venipuncture 05/22/14 [facility] BSO - Total abdominal hysterectomy and 2007 bilateral salpingo-oophorectomy S/P sinus surgery Social History Social History Type Response Smoking Status Never smoker Assessment and Plan No data available for this section
--- OUTSIDE RECORDS SUMMARY | 2016-07-07 06:33 | XMS REPORT | Referral Summary ---
Author Author [facility] [employer] Organization [facility] [place] Address Unknown Phone Unavailable Care Team Providers Care Maintenance Department Technician Name Role Phone Chantelle Helms Primary Care Physician [phone] Encounter Date(s): 03/06/16 - 03/06/16 [facility] [place] [address] [place], [place] [address] Discharge Diagnosis: Obstructive sleep apnea, adult Discharge Diagnosis: Restless legs syndrome (RLS) Discharge Disposition: 01-Home or Self Care Attending Physician: Harinder Savage MD Admitting Physician: Harinder Savage MD Vital Signs Most recent to 1 oldest [Reference Range]: Peripheral Pulse 74 bpm Rate [60-100 bpm] (03/06/16 8:26 AM) Blood Pressure 124/74 mmHg [90-140/60-90 mmHg] (03/06/16 8:26 AM) SpO2 98 % (03/06/16 8:26 AM) Problem List Condition Effective Dates Status [...] # 30 caps, 11 Refill(s), Pharmacy: [facility] #[id number], Take 4 caps for a cold sore. May repeat in 8-12 hours. Start Date: 10/16/15 Status: Ordered albuterol CFC free 90 mcg/inh inhalation aerosol 2 puffs, Inhalation, q4hr, as needed for wheezing, # 18 g, 0 Refill(s), Pharmacy : [facility] #[id number] Start Date: 11/06/15 Status: Ordered Keturah Allergy 180 mg, Oral, Daily, 0 Refill(s) Start Date: 09/05/13 Status: Ordered atorvastatin 10 mg oral tablet 10 mg 1 tabs, Oral, Daily, # 90 tabs, 3 Refill(s), Pharmacy: [facility] # [id number], 1 tabs Oral Daily Start Date: 11/29/15 Status: Ordered calcium carbonate 500 mg, Oral, BID, 0 Refill(s) Start Date: 09/05/13 Status: Ordered fluticasone 50 mcg/inh nasal spray See Instructions, USE 2 SPRAYS IN EACH NOSTRIL DAILY NEEDED, # 16 unknown unit, 2 Refill(s), eRx: [facility] #[id number], USE 2 SPRAYS IN EACH NOSTRIL DAILY NEEDED Start Date: 12/01/14 Status: Ordered gabapentin 600 mg/24 hours oral tablet, extended release 600 mg 1 tabs, Oral, Bedtime (once a day), # 30 tabs, 5 Refill(s), called to pharmacy (Rx) Start Date: 02/05/16 Status: Ordered Horizant 300 mg oral tablet, extended release 300 mg 1 tabs, Oral, Daily, # 30 tabs, 0 Refill(s), Pharmacy: [facility] # [id number], 1 tabs Oral Daily Start Date: 03/06/16 Status: Ordered levothyroxine 25 mcg (0.025 mg) oral tablet See Instructions, TAKE ONE TABLET BY MOUTH EVERY DAY, # 90 tabs, eRx: [facility] #[id number] Start Date: 02/19/16 Status: Ordered omega-3 polyunsaturated fatty acids 1000 mg oral capsule 1,000 mg 1 caps, Oral, Daily, 0 Refill(s) Start Date: 10/16/15 Status: Ordered Patanol 0.1% ophthalmic solution 1 drops, Eye-Both, BID, as needed for allergies, # 5 mL, 5 Refill(s), Pharmacy: [facility] #[id number] Start Date: 11/07/14 Status: Ordered rOPINIRole 1 mg oral tablet See Instructions, TAKE 1 TABLET BY MOUTH 9 TIMES EACH DAY, # 270 tabs, 3 Refill( s), eRx: [facility] #[id number], TAKE 1 TABLET BY MOUTH 9 TIMES EACH DAY Start Date: 12/04/15 Status: Ordered Singulair 10 mg oral tablet 10 mg 1 tabs, Oral, qPM, # 30 tabs, 11 Refill(s), Pharmacy: [facility] # [id number], 1 tabs Oral qPM Start Date: 07/17/15 Status: Ordered Symbicort 160 mcg-4.5 mcg/inh inhalation aerosol 2 puffs, Inhalation, BID, as needed for asthma, # 1 Each, 5 Refill(s), Pharmacy : [facility] #[id number] Start Date: 11/05/15 Status: Ordered Results No data available for this section Immunizations Given and Recorded Vaccine Date Status Refusal Reason tetanus/diphth/pertuss (Tdap) adult/adol 11/28/15 Given influenza virus vaccine, inactivated1 12/06/13 Recorded [...] Office Visit Note Author: Harinder Savage Date: 03/06/16 Assessment/Plan 1.Restless legs syndrome (RLS) 2.Obstructive sleep apnea, adult - Trial of Horizant instead of gabapentin. - If it does not work we will taper Requip with Codeine, and switch to Nuepro. - Excellent compliance and adequate response to therapy. - Patient reports controlled symptoms with CPAP use. - Objective therapy report from CPAP unit confirms compliance and controlled AHI. - Patient is advised to avoid driving or other potentially harmful activities if sleepy, drowsy or otherwise impaired. - Weight loss recommended. - Follow up yearly.
--- OUTSIDE RECORDS SUMMARY | 2016-07-07 06:33 | XMS REPORT | Referral Summary ---
Author Author [facility] Organization [facility] Address Unknown Phone Unavailable Care Team Providers Care Manager Dairy Name Role Phone Chantelle Helms Primary Care Physician [phone] Encounter Date(s): 08/18/14 - 08/18/14 [facility] [address] [facility], [facility] [address] [place], [place] [address] Discharge Diagnosis: Obstructive sleep apnea, adult Discharge Disposition: 01-Home or Self Care Attending Physician: Chris Flores MD Admitting Physician: Chris Flores MD Referring Physician: Chris Flores MD Vital Signs Most recent to 1 oldest [Reference Range]: Peripheral Pulse 70 bpm Rate [60-100 bpm] (08/18/14 8:31 AM) Blood Pressure 116/72 mmHg [90-140/60-90 mmHg] (08/18/14 8:31 AM) SpO2 98 % (08/18/14 8:31 AM) Problem List Condition Effective Dates Status [...] hours., # 30 caps, 11 Refill(s), Pharmacy: [facility] #[id number], Take 4 caps for a cold sore. [...] # 16 unknown unit, 2 Refill(s), eRx: [facility] #[id number], USE 2 SPRAYS IN EACH NOSTRIL DAILY NEEDED Start Date: 12/01/14 Status: Ordered levothyroxine 25 mcg (0.025 mg) oral tablet See Instructions, TAKE ONE TABLET BY MOUTH EVERY DAY, # 90 tabs, eRx: [facility] #[id number], TAKE ONE TABLET BY MOUTH EVERY DAY Start Date: 09/07/14 Status: Ordered losartan 25 mg oral tablet 1 tabs, Oral, Daily, # 30 tabs, 11 Refill(s), Pharmacy: [facility] #[id number] , 1 tabs Oral Daily Start Date: 03/31/14 Status: Ordered Nasacort AQ sprays, Nasal, Daily, 0 Refill(s) Start Date: 07/13/14 Status: Ordered omega-3 polyunsaturated fatty acids 1000 mg oral capsule 1 caps, Oral, Daily, 0 Refill(s) Start Date: 12/06/13 Status: Ordered Patanol 0.1% ophthalmic solution 1 drops, Eye-Both, BID, as needed for allergies, # 5 mL, 5 Refill(s), Pharmacy: [facility] #[id number] Start Date: 11/07/14 Status: Ordered Requip 1 mg oral tablet See Instructions, TAKE 1TABLET BY MOUTH 9 TIMES EACH DAY, # 270 tabs, 2 Refill(s ), [id number], TAKE 1TABLET BY MOUTH 9 TIMES EACH [...] Author: Chris Flores MD Date: Family Medicine CPAP and BIPAP Information CPAP and BIPAP are methods of helping you breathe with the use of air pressure. CPAP stands for "continuous positive airway pressure." BIPAP stands for "bi- level positive airway pressure." In both methods, air is blown into your air passages to help keep you breathing well. With CPAP, the amount of pressure stays the same while you breathe in and out. CPAP is most commonly used for obstructive sleep apnea. For obstructive sleep apnea, CPAP works by holding your airways open so that they do not collapse when your muscles relax during sleep. BIPAP is similar to CPAP except the amount of pressure is increased when you inhale. This helps you take larger breaths. Your health care provider will recommend whether CPAP or BIPAP would be more helpful for you. WHY ARE CPAP AND BIPAP TREATMENTS USED? CPAP or BIPAP can be helpful if you have: Sleep apnea. Chronic obstructive pulmonary disease (COPD). Diseases that weaken the muscles of the chest, including muscular dystrophy or neurological diseases such as amyotrophic lateral sclerosis (ALS). Other problems that cause breathing to be weak, abnormal, or difficult. HOW IS CPAP OR BIPAP ADMINISTERED? Both CPAP and BIPAP are provided by a small machine with a flexible plastic tube that attaches to a plastic mask. The mask fits on your face, and air is blown into your air passages through your nose or mouth. The amount of pressure that is used to blow the air into your air passages can be set on the machine. Your health care provider will determine the pressure setting that should be used based on your individual needs. WHEN SHOULD CPAP OR BIPAP BE USED? In most cases, the mask is worn only when sleeping. Generally, you will need to wear the mask throughout the night and during the daytime if you take a nap. In a few cases involving certain medical conditions, people also need to wear the mask at other times when they are awake. Follow your health care provider's instructions for when to use the machine. USING THE MASK Because the mask needs to be snug, some people feel a trapped or closed-in feeling (claustrophobic ) when first using the mask. You may need to get used to the mask gradually. To do this, you can first hold the mask loosely over your nose or mouth. Gradually apply the mask more snugly. You can also gradually increase the amount of time that you use the mask. Masks are available in various types and sizes. Some fit over your mouth and nose, and some fit over just your nose. If your mask does not fit well, talk to your health care provider about getting a different one. If you are using a nasal mask and you tend to breathe through your mouth, a chin strap may be applied to help keep your mouth closed. The CPAP and BIPAP machines have alarms that may sound if the mask comes off or develops a leak. If you have trouble with the mask, it is very important that you talk to your health care provider about finding a way to make the mask easier to tolerate. Do not stop using the mask. This could have a negative impact on your health. TIPS FOR USING THE MACHINE Place your CPAP or BIPAP machine on a secure table or stand near an electrical outlet. Know where the on-off switch is located on the machine. Follow your health care provider's instructions for how to set the pressure on your machine and when you should use it. Do not eat or drink while the CPAP or BIPAP machine is on. Food or fluids could get pushed into your lungs by the pressure of the CPAP or BIPAP. Do not smoke. Tobacco smoke residue can damage the machine. For home use, CPAP and BIPAP machines can be rented or purchased through home health care companies. Many different brands of machines are available. Renting a machine before purchasing may help you find out which particular machine works well for you. SEEK IMMEDIATE MEDICAL CARE IF: You have redness or open areas around your nose or mouth where the mask fits. You have trouble operating the CPAP or BIPAP machine. You cannot tolerate wearing the CPAP or BIPAP mask. Document Released: 11/21/2004 Document Revised: 10/26/2013 Document Reviewed: [facility] Patient Information 2014 [employer]. No follow up information was provided. Extracted from: Title: Office Visit Note Author: Chris Flores MD Date: 08/18/14 Assessment/Plan Obstructive sleep apnea, adult Assessment: Obstructive sleep apnea syndrome. In terms of apnea-hypopnea index, this is in the mild range, but the patient' s sleep is moderately fragmented, and given her hypertension and tiredness, treatment with CPAP is recommended. Plan: We reviewed the study in detail. She was given a summary page and an example page. She will be set up with an auto titrating CPAP machine set at 5- 12 cm today. We will see her back in a month, sooner if difficulties. Referrals to Other Providers Referred by: Chris Flores MD
--- OUTSIDE RECORDS SUMMARY | 2016-07-07 06:33 | XMS REPORT | Referral Summary ---
Author Organization Unknown Address Unknown Phone Unavailable Care Team Providers Care Dehydrator Tender Name Role Phone Chantelle Helms Primary Care Physician [phone] Encounter VC Date(s): 05/19/14 - 05/19/14 [facility], [facility], Family [address] [place], [place] [address] Discharge Diagnosis: Acute bronchitis Discharge Diagnosis: Acute sinusitis Discharge Diagnosis: Restless legs syndrome (RLS) Discharge Diagnosis: Influenza B Discharge Diagnosis: Snoring disorder Discharge Diagnosis: Benign essential hypertension Discharge Disposition: Home or Self Care Attending Physician: Nishant Helms MD Admitting Physician: Nishnat Helms MD Vital Signs Most recent to 1 oldest [Reference Range]: Temperature Tympanic 37.8 degC [36.6-38.1 degC] (05/19/14 3:07 PM) Peripheral Pulse 88 bpm Rate [60-100 bpm] (05/19/14 3:07 PM) Blood Pressure 122/80 mmHg [90-140/60-90 mmHg] (05/19/14 3:07 PM) Problem List Condition Effective Dates Status [...] hours., # 30 caps, 11 Refill(s), Pharmacy: [facility] #[id number], Take 4 caps for a cold sore. [...] days., # 6 tabs, 0 Refill(s), Pharmacy: [facility] #[id number], Take 2 tabs today, then 1 tab daily for 4 days. Special Instructions: Take 2 tabs today, then 1 tab daily for 4 days. Start Date: 05/19/14 Stop Date: 05/24/14 Status: Ordered calcium carbonate 500 mg, Oral, BID, 0 Refill(s) Start Date: 09/05/13 Status: Ordered estradiol 2 mg oral tablet 1 tabs, Oral, Daily, 0 Refill(s) Start Date: 09/05/13 Status: Ordered fluticasone 50 mcg/inh nasal spray See Instructions, USE 2 SPRAYS IN EACH NOSTRIL DAILY NEEDED, # 16 unknown unit, 3 Refill(s), eRx: [facility] #[id number], USE 2 SPRAYS IN EACH NOSTRIL DAILY NEEDED Special Instructions: USE 2 SPRAYS IN EACH NOSTRIL DAILY NEEDED Start Date: 03/01/14 Status: Ordered levothyroxine 25 mcg (0.025 mg) oral tablet See Instructions, TAKE ONE TABLET BY MOUTH EVERY DAY, # 90 tabs, eRx: [facility] #[id number], TAKE ONE TABLET BY MOUTH EVERY DAY Special Instructions: TAKE ONE TABLET BY MOUTH EVERY DAY Start Date: 04/05/14 Status: Ordered losartan 25 mg oral tablet 1 tabs, Oral, Daily, # 30 tabs, 11 Refill(s), Pharmacy: [facility] #[id number] , 1 tabs Oral Daily Start Date: 03/31/14 Status: Ordered omega-3 polyunsaturated fatty acids 1000 mg oral capsule 1 caps, Oral, Daily, 0 Refill(s) Start Date: 12/06/13 Status: Ordered Requip 1 mg oral tablet See Instructions, TAKE ONE TABLET BY MOUTH 9 TIMES A DAY, # 270 tabs, 11 Refill( s), Pharmacy: [facility] #[id number], TAKE ONE TABLET BY MOUTH 9 TIMES A DAY Special Instructions: TAKE ONE TABLET BY MOUTH 9 TIMES A DAY Start Date: 12/06/13 Status: Ordered Tamiflu 75 mg oral capsule 1 caps, Oral, BID, X 5 days, # 10 caps, 0 Refill(s), Pharmacy: [facility] #[id number], 1 caps Oral BID,x5 days Start Date: 05/19/14 Stop Date: 05/24/14 Status: Ordered Results No data available for this section Immunizations Vaccine Date Refusal Reason influenza virus vaccine, inactivated1 12/06/13 tetanus-diphth toxoids (Td) adult/adol 12/28/02 1Result Comment: [12/06/2013] See scanned document Procedures Procedure Date Related Diagnosis Body Site UZIEL BSO - Total abdominal hysterectomy and 2007 bilateral salpingo-oophorectomy S/P sinus surgery Social History Social History Type Response Smoking Status Never smoker Assessment and Plan Extracted from: Title: Ambulatory Patient Education Author: Nishant Helms MD Date: 05/19 Allergy Sinusitis Sinusitis is redness, soreness, and swelling (inflammation ) of the paranasal sinuses. Paranasal sinuses are air pockets within the bones of your face ( beneath the eyes, the middle of the forehead, or above the eyes). In healthy paranasal sinuses, mucus is able to drain out, and air is able to circulate through them by way of your nose. However, when your paranasal sinuses are inflamed, mucus and air can become trapped. This can allow bacteria and other germs to grow and cause infection. Sinusitis can develop quickly and last only a short time (acute ) or continue over a long period (chronic ). Sinusitis that lasts for more than 12 weeks is considered chronic. CAUSES Causes of sinusitis include: Allergies. Structural abnormalities, such as displacement of the cartilage that separates your nostrils (deviated septum ), which can decrease the air flow through your nose and sinuses and affect sinus drainage. Functional abnormalities, such as when the small hairs (cilia ) that line your sinuses and help remove mucus do not work properly or are not present. SYMPTOMS Symptoms of acute and chronic sinusitis are the same. The primary symptoms are pain and pressure around the affected sinuses. Other symptoms include: Upper toothache. Earache. Headache. Bad breath. Decreased sense of smell and taste. A cough, which worsens when you are lying flat. Fatigue. Fever. Thick drainage from your nose, which often is green and may contain pus ( purulent ). Swelling and warmth over the affected sinuses. DIAGNOSIS Your caregiver will perform a physical exam. During the exam, your caregiver may : Look in your nose for signs of abnormal growths in your nostrils (nasal polyps) . Tap over the affected sinus to check for signs of infection. View the inside of your sinuses (endoscopy ) with a special imaging device with a light attached (endoscope ), which is inserted into your sinuses. If your caregiver suspects that you have chronic sinusitis, one or more of the following tests may be recommended: Allergy tests. Nasal cultureA sample of mucus is taken from your nose and sent to a lab and screened for bacteria. Nasal cytologyA sample of mucus is taken from your nose and examined by your caregiver to determine if your sinusitis is related to an allergy. TREATMENT Most cases of acute sinusitis are related to a viral infection and will resolve on their own within 10 days. Sometimes medicines are prescribed to help relieve symptoms (pain medicine, decongestants, nasal steroid sprays, or saline sprays) . However, for sinusitis related to a bacterial infection, your caregiver will prescribe antibiotic medicines. These are medicines that will help kill the bacteria causing the infection. Rarely, sinusitis is caused by a fungal infection. In theses cases, your caregiver will prescribe antifungal medicine. For some cases of chronic sinusitis, surgery is needed. Generally, these are cases in which sinusitis recurs more than 3 times per year, despite other treatments. HOME CARE INSTRUCTIONS Drink plenty of water. Water helps thin the mucus so your sinuses can drain more easily. Use a humidifier. Inhale steam 3 to 4 times a day (for example, sit in the bathroom with the shower running). Apply a warm, moist washcloth to your face 3 to 4 times a day, or as directed by your caregiver. Use saline nasal sprays to help moisten and clean your sinuses. Take artn-oeq-pfsdefq or prescription medicines for pain, discomfort, or fever only as directed by your caregiver. SEEK IMMEDIATE MEDICAL CARE IF: You have increasing pain or severe headaches. You have nausea, vomiting, or drowsiness. You have swelling around your face. You have vision problems. You have a stiff neck. You have difficulty breathing. MAKE SURE YOU: Understand these instructions. Will watch your condition. Will get help right away if you are not doing well or get worse. Document Released: 02/23/2006 Document Revised: 05/17/2012 Document Reviewed: [facility] Patient Information 2014 [facility]. [facility] Bronchitis Bronchitis is the body's way of reacting to injury and/or infection ( inflammation ) of the bronchi. Bronchi are the air tubes that extend from the windpipe into the lungs. If the inflammation becomes severe, it may cause shortness of breath. CAUSES Inflammation may be caused by: A virus. Germs (bacteria ). Dust. Allergens. Pollutants and many other irritants. The cells lining the bronchial tree are covered with tiny hairs (cilia ). These constantly beat upward, away from the lungs, toward the mouth. This keeps the lungs free of pollutants. When these cells become too irritated and are unable to do their job, mucus begins to develop. This causes the characteristic cough of bronchitis. The cough clears the lungs when the cilia are unable to do their job. Without either of these protective mechanisms, the mucus would settle in the lungs. Then you would develop pneumonia. Smoking is a common cause of bronchitis and can contribute to pneumonia. Stopping this habit is the single most important thing you can do to help yourself. TREATMENT Your caregiver may prescribe an antibiotic if the cough is caused by bacteria. Also, medicines that open up your airways make it easier to breathe. Your caregiver may also recommend or prescribe an expectorant. It will loosen the mucus to be coughed up. Only take oypv-pbh-bgozwxn or prescription medicines for pain, discomfort, or fever as directed by your caregiver. Removing whatever causes the problem (smoking, for example) is critical to preventing the problem from getting worse. Cough suppressants may be prescribed for relief of cough symptoms. Inhaled medicines may be prescribed to help with symptoms now and to help prevent problems from returning. For those with recurrent (chronic ) bronchitis, there may be a need for steroid medicines. SEEK IMMEDIATE MEDICAL CARE IF: During treatment, you develop more pus-like mucus (purulent sputum ). You have a fever. Your baby is older than 3 months with a rectal temperature of 102 F (38.9 C) or higher. Your baby is 3 months old or younger with a rectal temperature of 100.4 F (38 C) or higher. You become progressively more ill. You have increased difficulty breathing, wheezing, or shortness of breath. It is necessary to seek immediate medical care if you are elderly or sick from any other disease. MAKE SURE YOU: Understand these instructions. Will watch your condition. Will get help right away if you are not doing well or get worse. Document Released: 02/23/2006 Document Revised: 05/17/2012 Document Reviewed: [facility] Patient Information 2014 [employer]. No follow up information was provided. Extracted from: Title: acute bronchitis, HTN Author: Nishant Helms MD Date: 05/19/14 Impression and Plan Diagnosis Snoring disorder (ICD9 786.09, Discharge, Medical). Restless legs syndrome (RLS) (ICD9 333.94, Discharge, Medical). Influenza B (ICD9 487.1, Discharge, Medical). Benign essential hypertension (ICD9 401.1, Discharge, Medical). Acute sinusitis (ICD9 461.8, Discharge, Medical). Acute bronchitis (ICD9 466.0, Discharge, Medical). Plan: Influenza test is positive for B. Azithromycin was ordered initially, prior to the test result being obtained. You should take Tamiflu 75 mg BID X 5 days for the Influenza B. If you still have (or get) further sinusitis symptoms , then take the Azithromycin. Rest and humidity is helpful. Good handwashing. See the sleep doctor for your snoring disorder. Continue your routine meds. Followup as needed. No work until next week , due to being contagious.. Orders Orders (Selected) Outpatient Orders Ordered Office Visit Level 4 Est 61423: Completed Influenza A/B: Prescriptions Prescribed Tamiflu 75 mg oral capsule: 1 caps, Oral, BID, 10 caps azithromycin 250 mg oral tablet: See Instructions, Take 2 tabs today, then 1 tab daily for 4 days., 6 tabs. Dx/Order Association Plan: Diagnosis: Acute bronchitis Comment: Modified: Office Visit Level 4 Est [id number]; 05/19/14 15:34:00 CDT, Influenza B | Acute bronchitis | Acute sinusitis | Restless legs syndrome (RLS) | Snoring disorder Other status: Influenza A/B; Micro Specimen, Routine collect, 15:23:00 CDT, Once, Stop date 05/19/14 15:23:00 CDT, Nurse Collect Non- Blood, Acute bronchitis (Completed) Diagnosis: Acute sinusitis Comment: Modified: Office Visit Level 4 Est [id number]; 05/19/14 15:34:00 CDT, Influenza B | Acute bronchitis | Acute sinusitis | Restless legs syndrome (RLS) | Snoring disorder Diagnosis: Benign essential hypertension Comment: Modified: Office Visit Level 4 Est [id number]; 05/19/14 15:34:00 CDT, Influenza B | Acute bronchitis | Acute sinusitis | Restless legs syndrome (RLS) | Snoring disorder Diagnosis: Influenza B Comment: Modified: Office Visit Level 4 Est [id number]; 05/19/14 15:34:00 CDT, Influenza B | Acute bronchitis | Acute sinusitis | Restless legs syndrome (RLS) | Snoring disorder Diagnosis: Restless legs syndrome (RLS) Comment: Modified: Office Visit Level 4 Est [id number]; 05/19/14 15:34:00 CDT, Influenza B | Acute bronchitis | Acute sinusitis | Restless legs syndrome (RLS) | Snoring disorder Diagnosis: Snoring disorder Comment: Modified: Office Visit Level 4 Est [id number]; 05/19/14 15:34:00 CDT, Influenza B | Acute bronchitis | Acute sinusitis | Restless legs syndrome (RLS) | Snoring disorder Additional Orders: Comment: Ordered: Tamiflu 75 mg oral capsule,1 caps, Oral, BID, X 5 days, # 10 caps, 0 Refill(s), Pharmacy: [facility] #[id number], 1 caps Oral BID,x5 days Ordered: azithromycin 250 mg oral tablet,See Instructions, Take 2 tabs today, then 1 tab daily for 4 days., # 6 tabs, 0 Refill(s), Pharmacy: [facility] #[id number], Take 2 tabs today, then 1 tab daily for 4 days. End of Orders ."
--- OUTSIDE RECORDS SUMMARY | 2016-07-07 06:33 | XMS REPORT | Referral Summary ---
Author Author [facility] [place] Organization [facility] [place] Address Unknown Phone Unavailable Care Team Providers Care Attorney At Law Name Role Phone Chantelle Helms Primary Care Physician [phone] Encounter Date(s): 01/17/16 - 01/17/16 [facility] [place] [address] [place], [place] [address] Discharge Diagnosis: Obstructive sleep apnea, adult Discharge Diagnosis: Restless legs syndrome (RLS) Discharge Disposition: 01-Home or Self Care Attending Physician: Harinder Savage MD Admitting Physician: Harinder Savage MD Vital Signs Most recent to 1 oldest [Reference Range]: Peripheral Pulse 61 bpm Rate [60-100 bpm] (01/17/16 9:21 AM) Blood Pressure 122/68 mmHg [90-140/60-90 mmHg] (01/17/16 9:21 AM) SpO2 99 % (01/17/16 9:21 AM) Problem List Condition Effective Dates Status [...] hours., # 30 caps, 11 Refill(s), Pharmacy: [facility] #[id number], Take 4 caps for a cold sore. May repeat in 8-12 hours. Start Date: 10/16/15 Status: Ordered albuterol CFC free 90 mcg/inh inhalation aerosol 2 puffs, Inhalation, q4hr, as needed for wheezing, # 18 g, 0 Refill(s), Pharmacy : [facility] #[id number] Start Date: 11/06/15 Status: Ordered Keturah Allergy 180 mg, Oral, Daily, 0 Refill(s) Start Date: 09/05/13 Status: Ordered atorvastatin 10 mg oral tablet 10 mg 1 tabs, Oral, Daily, # 90 tabs, 3 Refill(s), Pharmacy: [facility] # [id number], 1 tabs Oral Daily Start Date: 11/29/15 Status: Ordered calcium carbonate 500 mg, Oral, BID, 0 Refill(s) Start Date: 09/05/13 Status: Ordered fluticasone 50 mcg/inh nasal spray See Instructions, USE 2 SPRAYS IN EACH NOSTRIL DAILY NEEDED, # 16 unknown unit, 2 Refill(s), eRx: [facility] #[id number], USE 2 SPRAYS IN EACH NOSTRIL DAILY NEEDED Start Date: 12/01/14 Status: Ordered gabapentin 300 mg oral capsule See Instructions, 1 cap oral around 730PM daily, # 90 tabs, 1 Refill(s), Pharmacy: [facility] #[id number], 1 cap oral around 730PM daily Start Date: 12/07/15 Status: Ordered levothyroxine 25 mcg (0.025 mg) oral tablet See Instructions, TAKE ONE TABLET BY MOUTH EVERY DAY, # 90 tabs, eRx: [facility] #[id number], TAKE ONE TABLET BY MOUTH EVERY DAY Start Date: 11/13/15 Status: Ordered omega-3 polyunsaturated fatty acids 1000 mg oral capsule 1,000 mg 1 caps, Oral, Daily, 0 Refill(s) Start Date: 10/16/15 Status: Ordered Patanol 0.1% ophthalmic solution 1 drops, Eye-Both, BID, as needed for allergies, # 5 mL, 5 Refill(s), Pharmacy: [facility] #[id number] Start Date: 11/07/14 Status: Ordered rOPINIRole 1 mg oral tablet See Instructions, TAKE 1 TABLET BY MOUTH 9 TIMES EACH DAY, # 270 tabs, 3 Refill( s), eRx: [facility] #[id number], TAKE 1 TABLET BY MOUTH 9 TIMES EACH DAY Start Date: 12/04/15 Status: Ordered Singulair 10 mg oral tablet 10 mg 1 tabs, Oral, qPM, # 30 tabs, 11 Refill(s), Pharmacy: [facility] # [id number], 1 tabs Oral qPM Start Date: 07/17/15 Status: Ordered Symbicort 160 mcg-4.5 mcg/inh inhalation aerosol 2 puffs, Inhalation, BID, as needed for asthma, # 1 Each, 5 Refill(s), Pharmacy : [facility] #[id number] Start Date: 11/05/15 Status: Ordered Results No [...] Office Visit Note Author: Harinder Savage Date: 01/17/16 MD Assessment/Plan 1.Obstructive sleep apnea, adult - Sub-optimal compliance. - Discussed strategies to increase use. -Discussed goals of >4 hours per night and > 70% of nights>4h. - Importance of CPAP use for cardiovascular. cerebrovascular, cancer and other health/mood benefits discussed. - All other questions answered. - Follow up in 6-8 weeks to recheck compliance. 2.Restless legs syndrome (RLS) - Patient is a good candidate forNeupro. - Continue titrating gabapentin. Increase to 600mg QHS. - Continue lowering Requip. (Will continue same dose as we increase Gabapentin.Patient encouraged to decrease night time Requip). Current Requip dosing 2mg/3mg/2mg at 2p/4p/HS. - Patient advised to avoid driving and other potentially harmful activities if feeling sleepy, drowsy or otherwise impaired. Countermeasures such as pulling over to nap and napping before driving discussed.
--- OUTSIDE RECORDS SUMMARY | 2016-07-07 06:33 | XMS REPORT | Referral Summary ---
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 Name Role Phone Chantelle Helms Primary Care Physician [phone] Encounter Date(s): 11/28/15 - 11/28/15 [facility] [place], [address] [place] [id number] Discharge Diagnosis: Restless legs syndrome (RLS) Discharge Diagnosis: Adult hypothyroidism Discharge Diagnosis: Morbid obesity with BMI of 40.0-44.9, adult Discharge Diagnosis: At high risk for pneumonia Discharge Diagnosis: Pneumonia Discharge Diagnosis: Need for Tdap vaccination Discharge Diagnosis: Primary hypercholesterolemia Discharge Disposition: 01-Home or Self Care Attending Physician: Nishant Helms MD Admitting Physician: Nishant Helms MD Vital Signs Most recent to 1 oldest [Reference Range]: Temperature Tympanic 36.0 degC [36.6-38.1 degC] *LOW* (11/28/15 8:45 AM) Peripheral Pulse 72 bpm Rate [60-100 bpm] (11/28/15 8:45 AM) Blood Pressure 98/56 mmHg [90-140/60-90 mmHg] (11/28/15 8:45 AM) SpO2 95 % (11/28/15 8:45 AM) Problem List Condition Effective Dates Status [...] hours., # 30 caps, 11 Refill(s), Pharmacy: [facility] #[id number], Take 4 caps for a cold sore. May repeat in 8-12 hours. Start Date: 10/16/15 Status: Ordered albuterol CFC free 90 mcg/inh inhalation aerosol 2 puffs, Inhalation, q4hr, as needed for wheezing, # 18 g, 0 Refill(s), Pharmacy : [facility] #[id number] Start Date: 11/06/15 Status: Ordered Keturah Allergy 180 mg, Oral, Daily, 0 Refill(s) Start Date: 09/05/13 Status: Ordered calcium carbonate 500 mg, Oral, BID, 0 Refill(s) Start Date: 09/05/13 Status: Ordered fluticasone 50 mcg/inh nasal spray See Instructions, USE 2 SPRAYS IN EACH NOSTRIL DAILY NEEDED, # 16 unknown unit, 2 Refill(s), eRx: [facility] #[id number], USE 2 SPRAYS IN EACH NOSTRIL DAILY NEEDED Start Date: 12/01/14 Status: Ordered gabapentin 100 mg oral capsule See Instructions, 1 cap daily at 7PM x 3 days, then 2 caps daily at 7PM x 3 days , then 3 caps daily at 7PM until next appt., # 60 tabs, 1 Refill(s), Pharmacy: [facility] #[id number], 1 cap daily at 7PM x 3 days, then 2 caps daily at 7PM x 3 days, th... Start Date: 11/02/15 Status: Ordered levothyroxine 25 mcg (0.025 mg) oral tablet See Instructions, TAKE ONE TABLET BY MOUTH EVERY DAY, # 90 tabs, eRx: [facility] #[id number], TAKE ONE TABLET BY MOUTH EVERY DAY Start Date: 11/13/15 Status: Ordered omega-3 polyunsaturated fatty acids 1000 mg oral capsule 1,000 mg 1 caps, Oral, Daily, 0 Refill(s) Start Date: 10/16/15 Status: Ordered Patanol 0.1% ophthalmic solution 1 drops, Eye-Both, BID, as needed for allergies, # 5 mL, 5 Refill(s), Pharmacy: [facility] #[id number] Start Date: 11/07/14 Status: Ordered Requip 1 mg oral tablet See Instructions, TAKE 1 TABLET BY MOUTH 9 TIMES EACH DAY, # 270 tabs, 2 Refill( s), eRx: [facility] #[id number], TAKE 1 TABLET BY MOUTH 9 TIMES EACH DAY Start Date: 05/21/15 Status: Ordered Singulair 10 mg oral tablet 10 mg 1 tabs, Oral, qPM, # 30 tabs, 11 Refill(s), Pharmacy: [facility] # [id number], 1 tabs Oral qPM Start Date: 07/17/15 Status: Ordered Symbicort 160 mcg-4.5 mcg/inh inhalation aerosol 2 puffs, Inhalation, BID, as needed for asthma, # 1 Each, 5 Refill(s), Pharmacy : [facility] #[id number] Start Date: 11/05/15 Status: Ordered Results Chemistry Most recent to 1 oldest [Reference Range]: LDL Direct [0-129 159 mg/dL mg/dL] *HI* (11/28/15 9:24 AM) TSH [0.35-4.94] 2.85 (11/28/15 9:24 AM) Immunizations Vaccine Date Refusal Reason tetanus/diphth/pertuss (Tdap) adult/adol 11/28/15 influenza virus vaccine, inactivated1 12/06/13 pneumococcal 13-valent conjugate vaccine 11/28/15 pneumococcal 23-polyvalent vaccine 11/07/14 tetanus-diphth toxoids (Td) adult/adol 12/28/02 1Result Comment: [12/06/2013] See scanned document Procedures Procedure Date Related Diagnosis Body Site Collection of venous blood by venipuncture 11/28/15 S/P sinus surgery 2009 [facility] - Total abdominal hysterectomy and 2007 bilateral salpingo-oophorectomy1 1had endometriosis and ovarian cysts; nothing precancerous; no abnormal pap smears Social History Social History Type Response Smoking Status Never smoker Assessment and Plan Extracted from: Title: Ambulatory Patient Education Author: Nishant Helms MD Date: 11/27 Allergy Immunization Schedule, Adult Influenza vaccine. All adults should be immunized every year. All adults, including women and people with hives-only allergy to eggs can receive the inactivated influenza (IIV) vaccine. Adults aged 1849 years can receive the recombinant influenza (KAYLIE) vaccine. The KAYLIE vaccine does not contain any egg protein. Adults aged 65 years or older can receive the standard-dose IIV or the high-dose IIV. Tetanus, diphtheria, and acellular pertussis (Td, Tdap) vaccine. women should receive 1 dose of Tdap vaccine during each . The dose should be obtained regardless of the length of time since the last dose. Immunization is preferred during the 27th to 36th week of gestation. An adult who has not previously received Tdap or who does not know his or her vaccine status should receive 1 dose of Tdap. This initial dose should be followed by tetanus and diphtheria toxoids (Td) booster doses every 10 years. Adults with an unknown or incomplete history of completing a 3-dose immunization series with Td-containing vaccines should begin or complete a primary immunization series including a Tdap dose. Adults should receive a Td booster every 10 years. Varicella vaccine. An adult without evidence of immunity to varicella should receive 2 doses or a second dose if he or she has previously received 1 dose. females who do not have evidence of immunity should receive the first dose after . This first dose should be obtained before leaving the health care facility. The second dose should be obtained 48 weeks after the first dose. Human papillomavirus (HPV) vaccine. Females aged 1326 years who have not received the vaccine previously should obtain the 3-dose series. The vaccine is not recommended for use in females. However, testing is not needed before receiving a dose. If a female is found to be after receiving a dose, no treatment is needed. In that case, the remaining doses should be delayed until after the . Males aged 1321 years who have not received the vaccine previously should receive the 3-dose series. Males aged 2226 years may be immunized. Immunization is recommended through the age of 26 years for any male who has sex with males and did not get any or all doses earlier. Immunization is recommended for any person with an immunocompromised condition through the age of 26 years if he or she did not get any or all doses earlier. During the 3-dose series, the second dose should be obtained 48 weeks after the first dose. The third dose should be obtained 24 weeks after the first dose and 16 weeks after the second dose. Zoster vaccine. One dose is recommended for adults aged 60 years or older unless certain conditions are present. Measles, mumps, and rubella (MMR) vaccine. Adults born before 1954 generally are considered immune to measles and mumps. Adults born in 1954 or later should have 1 or more doses of MMR vaccine unless there is a contraindication to the vaccine or there is laboratory evidence of immunity to each of the three diseases. A routine second dose of MMR vaccine should be obtained at least 28 days after the first dose for students attending postsecondary schools, health care workers, or international travelers. People who received inactivated measles vaccine or an unknown type of measles vaccine during should receive 2 doses of MMR vaccine. People who received inactivated mumps vaccine or an unknown type of mumps vaccine before 1978 and are at high risk for mumps infection should consider immunization with 2 doses of MMR vaccine. For females of childbearing age, rubella immunity should be determined. If there is no evidence of immunity, females who are not should be vaccinated. If there is no evidence of immunity, females who are should delay immunization until after . Unvaccinated health care workers born before 1954 who lack laboratory evidence of measles, mumps, or rubella immunity or laboratory confirmation of disease should consider measles and mumps immunization with 2 doses of MMR vaccine or rubella immunization with 1 dose of MMR vaccine. Pneumococcal 13-valent conjugate (PCV13) vaccine. When indicated, a person who is uncertain of his or her immunization history and has no record of immunization should receive the PCV13 vaccine. An adult aged 19 years or older who has certain medical conditions and has not been previously immunized should receive 1 dose of PCV13 vaccine. This PCV13 should be followed with a dose of pneumococcal polysaccharide (PPSV23) vaccine. The PPSV23 vaccine dose should be obtained at least 8 weeks after the dose of PCV13 vaccine. An adult aged 19 years or older who has certain medical conditions and previously received 1 or more doses of PPSV23 vaccine should receive 1 dose of PCV13. The PCV13 vaccine dose should be obtained 1 or more years after the last PPSV23 vaccine dose. Pneumococcal polysaccharide (PPSV23) vaccine. When PCV13 is also indicated, PCV13 should be obtained first. All adults aged 65 years and older should be immunized. An adult younger than age 65 years who has certain medical conditions should be immunized. Any person who resides in a halfway or long-term care facility should be immunized. An adult smoker should be immunized. People with an immunocompromised condition and certain other conditions should receive both PCV13 and PPSV23 vaccines. People with human immunodeficiency virus (HIV) infection should be immunized as soon as possible after diagnosis. Immunization during chemotherapy or radiation therapy should be avoided. Routine use of PPSV23 vaccine is not recommended for [place] Indians, [place] Natives, or people younger than 65 years unless there are medical conditions that require PPSV23 vaccine. When indicated, people who have unknown immunization and have no record of immunization should receive PPSV23 vaccine. One-time revaccination 5 years after the first dose of PPSV23 is recommended for people aged 1964 years who have chronic kidney failure, nephrotic syndrome, asplenia, or immunocompromised conditions. People who received 12 doses of PPSV23 before age 65 years should receive another dose of PPSV23 vaccine at age 65 years or later if at least 5 years have passed since the previous dose. Doses of PPSV23 are not needed for people immunized with PPSV23 at or after age 65 years. Meningococcal vaccine. Adults with asplenia or persistent complement component deficiencies should receive 2 doses of quadrivalent meningococcal conjugate (MenACWY-D) vaccine. The doses should be obtained at least 2 months apart. Microbiologists working with certain meningococcal bacteria, recruits, people at risk during an outbreak, and people who travel to or live in countries with a high rate of meningitis should be immunized. A first-year college student up through age 21 years who is living in a residence [place] should receive a dose if he or she did not receive a dose on or after his or her 16th birthday. Adults who have certain high-risk conditions should receive one or more doses of vaccine. Hepatitis A vaccine. Adults who wish to be protected from this disease, have certain high- risk conditions, work with hepatitis A-infected animals, work in hepatitis A research labs, or travel to or work in countries with a high rate of hepatitis A should be immunized. Adults who were previously unvaccinated and who anticipate close contact with an international adoptee during the first 60 days after arrival in the [place] from a country with a high rate of hepatitis A should be immunized. Hepatitis B vaccine. Adults who wish to be protected from this disease, have certain high- risk conditions, may be exposed to blood or other infectious body fluids, are household contacts or sex partners of hepatitis B positive people, are clients or workers in certain care facilities, or travel to or work in countries with a high rate of hepatitis B should be immunized. Haemophilus influenzae type b (Hib) vaccine. A previously unvaccinated person with asplenia or sickle cell disease or having a scheduled splenectomy should receive 1 dose of Hib vaccine. Regardless of previous immunization, a recipient of a hematopoietic stem cell transplant should receive a 3-dose series 612 months after his or her successful transplant. Hib vaccine is not recommended for adults with HIV infection. This information is not intended to replace advice given to you by your health care provider. Make sure you discuss any questions you have with your health care provider. Document Released: 05/15/2004 Document Revised: 06/20/2013 Document Reviewed: [employer] Patient Information 2016 [employer]. No follow up information was provided. Extracted from: Title: multiple problems Author: Nishant Helms MD Date: 11/28/15 Impression and Plan Diagnosis Pneumonia (ARS38-VR J18.9, Discharge, Medical). Restless legs syndrome (RLS) (ENZ98-FK G25.81, Discharge, Medical). Need for Tdap vaccination (DPU64-VL Z23, Discharge, Medical). At high risk for pneumonia (ZPN98-IV Z91.89, Discharge, Medical). Adult hypothyroidism (MGI66-KA E03.9, Discharge, Medical). Morbid obesity with BMI of 40.0-44.9, adult (GWT99-RH Z68.41, Discharge, Medical ). Primary hypercholesterolemia (QCT74-QG E78.0, Discharge, Medical). Plan: 1) CXR obtained today--your pneumonia appears to be mostly cleared. 2) Tdap and Prevnar-13 vaccines given today. 3) Continue your present meds. 4) Lab ordered today. 5) See me for a physical in 3-4 months. 6) Get your flu shot at work. 7) Healthy diet and daily exercise helps most things.. Orders Orders (Selected) Outpatient Orders Ordered Boostrix (Tdap): 0.5 mL, IntraMuscular, Once pneumococcal 13-valent conjugate vaccine: 0.5 mL, IntraMuscular, Once Ordered (Exam Completed) XR Chest 2 Views: Future (On Hold) LDL Direct: TSH 3rd Generation: Order Office Visit Level 4 Est 57038: . Dx/Order Association Plan: Diagnosis: Adult hypothyroidism Comment: Ordered: Office Visit Level 4 Est [id number]; 11/28/15 9:07:00 CDT, Pneumonia | Restless legs syndrome (RLS) | At high risk for pneumonia | Adult hypothyroidism | Primary hypercholesterolemia | Morbid obesity with BMI of 40.0- 44.9, adult | Need for Tdap vaccination Diagnosis: At high risk for pneumonia Comment: Ordered: Office Visit Level 4 Est [id number]; 11/28/15 9:07:00 CDT, Pneumonia | Restless legs syndrome (RLS) | At high risk for pneumonia | Adult hypothyroidism | Primary hypercholesterolemia | Morbid obesity with BMI of 40.0- 44.9, adult | Need for Tdap vaccination Diagnosis: Morbid obesity with BMI of 40.0-44.9, adult Comment: Ordered: Office Visit Level 4 Est [id number]; 11/28/15 9:07:00 CDT, Pneumonia | Restless legs syndrome (RLS) | At high risk for pneumonia | Adult hypothyroidism | Primary hypercholesterolemia | Morbid obesity with BMI of 40.0- 44.9, adult | Need for Tdap vaccination Diagnosis: Need for Tdap vaccination Comment: Ordered: Boostrix (Tdap); 0.5 mL, IntraMuscular, Once, First Dose : 11/28/15 9:00:00 CDT, Stop Date: 11/28/15 9:00:00 CDT Office Visit Level 4 Est [id number]; 11/28/15 9:07:00 CDT, Pneumonia | Restless legs syndrome (RLS) | At high risk for pneumonia | Adult hypothyroidism | Primary hypercholesterolemia | Morbid obesity with BMI of 40.0-44.9, adult | Need for Tdap vaccination Diagnosis: Pneumonia Comment: Ordered: pneumococcal 13-valent conjugate vaccine; 0.5 mL, IntraMuscular, Once, First Dose: 11/28/15 9:00:00 CDT, Stop Date: 11/28/15 9:00: 00 CDT Office Visit Level 4 Est [id number]; 11/28/15 9:07:00 CDT, Pneumonia | Restless legs syndrome (RLS) | At high risk for pneumonia | Adult hypothyroidism | Primary hypercholesterolemia | Morbid obesity with BMI of 40.0-44.9, adult | Need for Tdap vaccination Other status: XR Chest 2 Views; 11/28/15 9:01:00 CDT, Routine, Stop date 11/28/15 9:01:00 CDT, Reason: Pneumonia, Pneumonia, ABN Status: Not Required (Status Change) Diagnosis: Primary hypercholesterolemia Comment: Ordered: Office Visit Level 4 Est [id number]; 11/28/15 9:07:00 CDT, Pneumonia | Restless legs syndrome (RLS) | At high risk for pneumonia | Adult hypothyroidism | Primary hypercholesterolemia | Morbid obesity with BMI of 40.0- 44.9, adult | Need for Tdap vaccination Diagnosis: Restless legs syndrome (RLS) Comment: Ordered: Office Visit Level 4 Est [id number]; 11/28/15 9:07:00 CDT, Pneumonia | Restless legs syndrome (RLS) | At high risk for pneumonia | Adult hypothyroidism | Primary hypercholesterolemia | Morbid obesity with BMI of 40.0- 44.9, adult | Need for Tdap vaccination Diagnosis: Primary hypercholesterolemia Comment: Diagnosis: Adult hypothyroidism Comment: End of Orders ."
--- OUTSIDE RECORDS SUMMARY | 2016-07-07 06:34 | XMS REPORT | Referral Summary ---
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 Discharge Diagnosis: Hot flashes due to surgical menopause Discharge Diagnosis: Chronic low back pain Discharge Diagnosis: Restless legs syndrome (RLS) Discharge Diagnosis: Need for hepatitis A vaccination Discharge Diagnosis: Obstructive sleep apnea, adult Discharge Diagnosis: Well adult exam Discharge Diagnosis: Allergic rhinitis Discharge Diagnosis: Adult hypothyroidism Discharge Diagnosis: Allergic rhinitis Discharge Diagnosis: Morbid obesity Discharge Diagnosis: Primary hypercholesterolemia Discharge Diagnosis: Adult hypothyroidism Discharge Disposition: 01-Home or Self Care Attending Physician: Nishant Helms MD Admitting Physician: Nishant Helms MD Vital Signs Most recent to 1 oldest [Reference Range]: Temperature Tympanic 37.1 degC [36.6-38.1 degC] (04/09/16 7:10 AM) Peripheral Pulse 69 bpm Rate [60-100 bpm] (04/09/16 7:10 AM) Blood Pressure 115/80 mmHg [90-140/60-90 mmHg] (04/09/16 7:10 AM) SpO2 96 % (04/09/16 7:10 AM) Problem List Condition Effective Dates Status [...] Refill(s), Pharmacy: [facility] #[id number], Take 4 caps for a cold sore. May repeat in 8-12 hours. Start Date: 10/16/15 Status: Ordered albuterol CFC free 90 mcg/inh inhalation aerosol 2 puffs, Inhalation, q4hr, as needed for wheezing, # 18 g, 0 Refill(s), Pharmacy : [facility] #[id number] Start Date: 11/06/15 Status: Ordered Keturah Allergy 180 mg, Oral, Daily, 0 Refill(s) Start Date: 09/05/13 Status: Ordered calcium carbonate 500 mg, Oral, BID, 0 Refill(s) Start Date: 09/05/13 Status: Ordered fluticasone 50 mcg/inh nasal spray See Instructions, USE 2 SPRAYS IN EACH NOSTRIL DAILY NEEDED, # 16 unknown unit, 2 Refill(s), eRx: [facility] #[id number], USE 2 SPRAYS IN EACH NOSTRIL DAILY [...] tabs, eRx: [facility] #[id number] Start Date: 02/19/16 Status: Ordered omega-3 polyunsaturated fatty acids 1000 mg oral capsule 1,000 mg 1 caps, Oral, Daily, 0 Refill(s) Start Date: 10/16/15 Status: Ordered Patanol 0.1% ophthalmic solution 1 drops, Eye-Both, BID, as needed for allergies, # 5 mL, 5 Refill(s), Pharmacy: [facility] #[id number] Start Date: 11/07/14 Status: Ordered Singulair 10 mg oral tablet 10 mg 1 tabs, Oral, qPM, # 30 tabs, 11 Refill(s), Pharmacy: [facility] # [id number], 1 tabs Oral qPM Start Date: 07/17/15 Status: Ordered Symbicort 160 mcg-4.5 mcg/inh inhalation aerosol 2 puffs, Inhalation, BID, as needed for asthma, # 1 Each, 5 Refill(s), Pharmacy : [facility] #[id number] Start Date: 11/05/15 Status: Ordered Results No [...] Patient Education Author: Nishant Helms MD Date: Preventive Medicine Health Maintenance, Female Adopting a healthy lifestyle and getting preventive care can go a long way to promote health and wellness. Talk with your health care provider about what schedule of regular examinations is right for you. This is a good chance for you to check in with your provider about disease prevention and staying healthy. In between checkups, there are plenty of things you can do on your own. Experts have done a lot of research about which lifestyle changes and preventive measures are most likely to keep you healthy. Ask your health care provider for more information. WEIGHT AND DIET Eat a healthy diet Be sure to include plenty of vegetables, fruits, low-fat dairy products, and lean protein. Do not eat a lot of foods high in solid fats, added sugars, or salt. Get regular exercise. This is one of the most important things you can do for your health. Most adults should exercise for at least 150 minutes each week. The exercise should increase your heart rate and make you sweat (moderate-intensity exercise). Most adults should also do strengthening exercises at least twice a week. This is in addition to the moderate-intensity exercise. Maintain a healthy weight Body mass index (BMI) is a measurement that can be used to identify possible weight problems. It estimates body fat based on height and weight. Your health care provider can help determine your BMI and help you achieve or maintain a healthy weight. For females 20 years of age and older: A BMI below 18.5 is considered underweight. A BMI of 18.5 to 24.9 is normal. A BMI of 25 to 29.9 is considered overweight. A BMI of 30 and above is considered obese. Watch levels of cholesterol and blood lipids You should start having your blood tested for lipids and cholesterol at 20 years of age, then have this test every 5 years. You may need to have your cholesterol levels checked more often if: Your lipid or cholesterol levels are high. You are older than 50 years of age. You are at high risk for heart disease. CANCER SCREENING Lung Cancer Lung cancer screening is recommended for adults 5580 years old who are at high risk for lung cancer because of a history of smoking. A yearly low-dose CT scan of the lungs is recommended for people who: Currently smoke. Have quit within the past 15 years. Have at least a [id number] history of smoking. A pack year is smoking an average of one pack of cigarettes a day for 1 year. Yearly screening should continue until it has been 15 years since you quit. Yearly screening should stop if you develop a health problem that would prevent you from having lung cancer treatment. Breast Cancer Practice breast self-awareness. This means understanding how your breasts normally appear and feel. It also means doing regular breast self-exams. Let your health care provider know about any changes, no matter how small. If you are in your 20s or 30s, you should have a clinical breast exam ( CBE) by a health care provider every 13 years as part of a regular health exam. If you are 40 or older, have a CBE every year. Also consider having a breast X-ray (mammogram) every year. If you have a family history of breast cancer, talk to your health care provider about genetic screening. If you are at high risk for breast cancer, talk to your health care provider about having an MRI and a mammogram every year. Breast cancer gene (BRCA) assessment is recommended for women who have family members with BRCA-related cancers. BRCA-related cancers include: Breast. Ovarian. Tubal. Peritoneal cancers. Results of the assessment will determine the need for genetic counseling and BRCA1 and BRCA2 testing. Cervical Cancer Your health care provider may recommend that you be screened regularly for cancer of the pelvic organs (ovaries, uterus, and vagina). This screening involves a pelvic examination, including checking for microscopic changes to the surface of your cervix (Pap test). You may be encouraged to have this screening done every 3 years, beginning at age 21. For women ages 3065, health care providers may recommend pelvic exams and Pap testing every 3 years, or they may recommend the Pap and pelvic exam, combined with testing for human papilloma virus (HPV), every 5 years. Some types of HPV increase your risk of cervical cancer. Testing for HPV may also be done on women of any age with unclear Pap test results. Other health care providers may not recommend any screening for non women who are considered low risk for pelvic cancer and who do not have symptoms. Ask your health care provider if a screening pelvic exam is right for you. If you have had past treatment for cervical cancer or a condition that could lead to cancer, you need Pap tests and screening for cancer for at least 20 years after your treatment. If Pap tests have been discontinued, your risk factors (such as having a new sexual partner) need to be reassessed to determine if screening should resume. Some women have medical problems that increase the chance of getting cervical cancer. In these cases, your health care provider may recommend more frequent screening and Pap tests. Colorectal Cancer This type of cancer can be detected and often prevented. Routine colorectal cancer screening usually begins at 50 years of age and continues through 75 years of age. Your health care provider may recommend screening at an earlier age if you have risk factors for colon cancer. Your health care provider may also recommend using home test kits to check for hidden blood in the stool. A small camera at the end of a tube can be used to examine your colon directly (sigmoidoscopy or colonoscopy). This is done to check for the earliest forms of colorectal cancer. Routine screening usually begins at age 50. Direct examination of the colon should be repeated every 510 years through 75 years of age. However, you may need to be screened more often if early forms of precancerous polyps or small growths are found. Skin Cancer Check your skin from head to toe regularly. Tell your health care provider about any new moles or changes in moles, especially if there is a change in a mole's shape or color. Also tell your health care provider if you have a mole that is larger than the size of a pencil eraser. Always use sunscreen. Apply sunscreen liberally and repeatedly throughout the day. Protect yourself by wearing long sleeves, pants, a wide-brimmed hat, and sunglasses whenever you are outside. HEART DISEASE, DIABETES, AND HIGH BLOOD PRESSURE High blood pressure causes heart disease and increases the risk of stroke. High blood pressure is more likely to develop in: People who have blood pressure in the high end of the normal range (130 139/8589 mm Hg). People who are overweight or obese. People who are . If you are 1839 years of age, have your blood pressure checked every 3 5 years. If you are 40 years of age or older, have your blood pressure checked every year. You should have your blood pressure measured twiceonce when you are at a hospital or clinic, and once when you are not at a hospital or clinic. Record the average of the two measurements. To check your blood pressure when you are not at a hospital or clinic, you can use: An automated blood pressure machine at a pharmacy. A home blood pressure monitor. If you are between 55 years and 79 years old, ask your health care provider if you should take aspirin to prevent strokes. Have regular diabetes screenings. This involves taking a blood sample to check your fasting blood sugar level. If you are at a normal weight and have a low risk for diabetes, have this test once every three years after 45 years of age. If you are overweight and have a high risk for diabetes, consider being tested at a younger age or more often. PREVENTING INFECTION Hepatitis B If you have a higher risk for hepatitis B, you should be screened for this virus. You are considered at high risk for hepatitis B if: You were born in a country where hepatitis B is common. Ask your health care provider which countries are considered high risk. Your parents were born in a high-risk country, and you have not been immunized against hepatitis B (hepatitis B vaccine). You have HIV or AIDS. You use needles to inject street drugs. You live with someone who has hepatitis B. You have had sex with someone who has hepatitis B. You get hemodialysis treatment. You take certain medicines for conditions, including cancer, organ transplantation, and autoimmune conditions. Hepatitis C Blood testing is recommended for: Everyone born from 1945 through 1965. Anyone with known risk factors for hepatitis C. Sexually transmitted infections (STIs) You should be screened for sexually transmitted infections (STIs) including gonorrhea and chlamydia if: You are sexually active and are younger than 24 years of age. You are older than 24 years of age and your health care provider tells you that you are at risk for this type of infection. Your sexual activity has changed since you were last screened and you are at an increased risk for chlamydia or gonorrhea. Ask your health care provider if you are at risk. If you do not have HIV, but are at risk, it may be recommended that you take a prescription medicine daily to prevent HIV infection. This is called pre- exposure prophylaxis (PrEP). You are considered at risk if: You are sexually active and do not regularly use condoms or know the HIV status of your partner(s). You take drugs by injection. You are sexually active with a partner who has HIV. Talk with your health care provider about whether you are at high risk of being infected with HIV. If you choose to begin PrEP, you should first be tested for HIV. You should then be tested every 3 months for as long as you are taking PrEP. If you are premenopausal and you may become , ask your health care provider about preconception counseling. If you may become , take 400 to 800 micrograms (mcg) of folic acid every day. If you want to prevent , talk to your health care provider about control (contraception). OSTEOPOROSIS AND MENOPAUSE Osteoporosis is a disease in which the bones lose minerals and strength with aging. This can result in serious bone fractures. Your risk for osteoporosis can be identified using a bone density scan. If you are 65 years of age or older, or if you are at risk for osteoporosis and fractures, ask your health care provider if you should be screened. Ask your health care provider whether you should take a calcium or vitamin D supplement to lower your risk for osteoporosis. Menopause may have certain physical symptoms and risks. Hormone replacement therapy may reduce some of these symptoms and risks. Talk to your health care provider about whether hormone replacement therapy is right for you. HOME CARE INSTRUCTIONS Schedule regular health, dental, and eye exams. Stay current with your immunizations. Do not use any tobacco products including cigarettes, chewing tobacco, or electronic cigarettes. If you are , do not drink alcohol. If you are , limit how much and how often you drink alcohol. Limit alcohol intake to no more than 1 drink per day for non women. One drink equals 12 ounces of beer, 5 ounces of wine, or 1 ounces of hard liquor. Do not use street drugs. Do not share needles. Ask your health care provider for help if you need support or information about quitting drugs. Tell your health care provider if you often feel depressed. Tell your health care provider if you have ever been abused or do not feel safe at home. This information is not intended to replace advice given to you by your health care provider. Make sure you discuss any questions you have with your health care provider. Document Released: 09/08/2011 Document Revised: 03/16/2015 Document Reviewed: [employer] Interactive Patient Education 2016 [employer] No follow up information was provided. Extracted from: Title: Female Physical Author: Nishant Helms MD Date: 04/09/16 Impression and Plan Diagnosis Restless legs syndrome (RLS) (WIK58-YX G25.81, Discharge, Medical). Hot flashes due to surgical menopause (MDD01-YV E89.41, Discharge, Medical). Allergic rhinitis (DLT11-MX J30.9, Discharge, Medical). Adult hypothyroidism (IJZ78-CH E03.9, Discharge, Medical). Chronic low back pain (OBX81-KP M54.5, Discharge, Medical). Morbid obesity (MUJ75-KD E66.01, Discharge, Medical). Obstructive sleep apnea, adult (MGG82-RX G47.33, Discharge, Medical). Primary hypercholesterolemia (YNT69-LR E78.00, Discharge, Medical). Well adult exam (UMM38-PC Z00.00, Discharge, Medical). Plan: 1) Healthy diet and daily exercise helps most things. 2) Continue your current meds. 3) Continue your CPAP. 4) Hepatitis A vaccine #1 given today. 5) Fasting lab to be done this month. 6) See me in one year and as needed. 7) See your youth services specialist for breast and pelvic exams, and mammograms. 8) Set up a colonoscopy for screening. . Orders Orders (Selected) Outpatient Orders Ordered Periodic Comp Preventive Med 40 to 64 years Est 74059: Completed hepatitis A adult vaccine 1440 units/mL preservative free intramuscular suspension: 1 mL, IntraMuscular, Once Future (On Hold) CMP: Fasting Lipid Profile: Routine Urinalysis: . Dx/Order Association Plan: Diagnosis: Adult hypothyroidism Comment: Diagnosis: Allergic rhinitis Comment: Diagnosis: Chronic low back pain Comment: Diagnosis: Hot flashes due to surgical menopause Comment: Diagnosis: Morbid obesity Comment: Diagnosis: Need for hepatitis A vaccination Comment: Other status: hepatitis A adult vaccine 1440 units/mL preservative free intramuscular suspension; 1 mL, IntraMuscular, Once, First Dose: 04/09/16 8:00:00 ECG TECHNICIAN, Stop Date: 04/09/16 8:00:00 ECG TECHNICIAN, Form: Vial ( Completed) Diagnosis: Obstructive sleep apnea, adult Comment: Diagnosis: Primary hypercholesterolemia Comment: Diagnosis: Restless legs syndrome (RLS) Comment: Diagnosis: Well adult exam Comment: Ordered: Periodic Comp Preventive Med 40 to 64 years Est 84919; 7:46:00 ECG TECHNICIAN, Well adult exam Other status: hepatitis A adult vaccine 1440 units/mL preservative free intramuscular suspension; 1 mL, IntraMuscular, Once, First Dose: 04/09/16 8:00:00 ECG TECHNICIAN, Stop Date: 04/09/16 8:00:00 ECG TECHNICIAN, Form: Vial ( Completed) Diagnosis: Morbid obesity Comment: Diagnosis: Well adult exam Comment: Diagnosis: Primary hypercholesterolemia Comment: Diagnosis: Morbid obesity Comment: Diagnosis: Well adult exam Comment: Diagnosis: Primary hypercholesterolemia Comment: Diagnosis: Restless legs syndrome (RLS) Comment: Diagnosis: Well adult exam Comment: Diagnosis: Chronic low back pain Comment: End of Orders .
--- OUTSIDE RECORDS SUMMARY | 2016-07-07 06:34 | XMS REPORT | Referral Summary ---
Author Author 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 Name Role Phone Chantelle Helms Primary Care Physician [phone] Encounter Date(s): 11/12/15 - 11/12/15 [facility], Immediate Care [address] [place] [address] [facility] Discharge Diagnosis: LLQ pain Discharge Diagnosis: Right middle lobe pneumonia Discharge Diagnosis: RLQ abdominal pain Discharge Diagnosis: Shortness of breath Discharge Diagnosis: Cough Discharge Disposition: 01-Home or Self Care Attending Physician: Magalys Morales APRN Attending Physician: Provider, Immediate Care Admitting Physician: Provider, Immediate Care Vital Signs Most recent to 1 oldest [Reference Range]: Temperature Oral 36.8 degC [35.8-37.3 degC] (11/12/15 11:21 AM) Peripheral Pulse 87 bpm Rate [60-100 bpm] (11/12/15 11:21 AM) Blood Pressure 160/104 mmHg [90-140/60-90 mmHg] *HI* (11/12/15 11:21 AM) SpO2 97 % (11/12/15 11:21 AM) Problem List Condition Effective Dates Status [...] hours., # 30 caps, 11 Refill(s), Pharmacy: [facility] #[id number], Take 4 caps for a cold sore. May repeat in 8-12 hours. Start Date: 10/16/15 Status: Ordered albuterol CFC free 90 mcg/inh inhalation aerosol 2 puffs, Inhalation, q4hr, as needed for wheezing, # 18 g, 0 Refill(s), Pharmacy : [facility] #[id number] Start Date: 11/06/15 Status: Ordered Keturah Allergy 180 mg, Oral, Daily, 0 Refill(s) Start Date: 09/05/13 Status: Ordered azithromycin 250 mg oral tablet See Instructions, 2 tabs today, then 1 tab daily for 4 days., # 6 tabs, 0 Refill (s), Pharmacy: [facility] #[id number], 2 tabs today, then 1 tab daily for 4 days. Start Date: 11/08/15 Stop Date: 11/13/15 Status: Ordered calcium carbonate 500 mg, Oral, BID, 0 Refill(s) Start Date: 09/05/13 Status: Ordered fluticasone 50 mcg/inh nasal spray See Instructions, USE 2 SPRAYS IN EACH NOSTRIL DAILY NEEDED, # 16 unknown unit, 2 Refill(s), eRx: [facility] #[id number], USE 2 SPRAYS IN EACH NOSTRIL DAILY NEEDED Start Date: 12/01/14 Status: Ordered gabapentin 100 mg oral capsule See Instructions, 1 cap daily at 7PM x 3 days, then 2 caps daily at 7PM x 3 days , then 3 caps daily at 7PM until next appt., # 60 tabs, 1 Refill(s), Pharmacy: [facility] #[id number], 1 cap daily at 7PM x 3 days, then 2 caps daily at 7PM x 3 days, th... Start Date: 11/02/15 Status: Ordered levofloxacin 750 mg oral tablet 750 mg 1 tabs, Oral, q24hr, X 7 days, # 7 tabs, 0 Refill(s), Pharmacy: [facility] #[id number], 1 tabs Oral q24hr,x7 days Start Date: 11/12/15 Stop Date: 11/19/15 Status: Ordered levothyroxine 25 mcg (0.025 mg) oral tablet See Instructions, TAKE ONE TABLET BY MOUTH EVERY DAY, # 90 tabs, eRx: [facility] #[id number], TAKE ONE TABLET BY MOUTH EVERY DAY Start Date: 03/26/15 Status: Ordered omega-3 polyunsaturated fatty acids 1000 mg oral capsule 1,000 mg 1 caps, Oral, Daily, 0 Refill(s) Start Date: 10/16/15 Status: Ordered Patanol 0.1% ophthalmic solution 1 drops, Eye-Both, BID, as needed for allergies, # 5 mL, 5 Refill(s), Pharmacy: [facility] #[id number] Start Date: 11/07/14 Status: Ordered predniSONE 20 mg oral tablet See Instructions, 2 tabs daily for 4 days, then 1 tab daily for 4 days., # 12 tabs, 0 Refill(s), Pharmacy: [facility] #[id number], 2 tabs daily for 4 days, then 1 tab daily for 4 days. Start Date: 11/08/15 Stop Date: 11/16/15 Status: Ordered Requip 1 mg oral tablet See Instructions, TAKE 1 TABLET BY MOUTH 9 TIMES EACH DAY, # 270 tabs, 2 Refill( s), eRx: [facility] #[id number], TAKE 1 TABLET BY MOUTH 9 TIMES EACH DAY Start Date: 05/21/15 Status: Ordered Singulair 10 mg oral tablet 10 mg 1 tabs, Oral, qPM, # 30 tabs, 11 Refill(s), Pharmacy: [facility] # [id number], 1 tabs Oral qPM Start Date: 07/17/15 Status: Ordered Symbicort 160 mcg-4.5 mcg/inh inhalation aerosol 2 puffs, Inhalation, BID, as needed for asthma, # 1 Each, 5 Refill(s), Pharmacy : [facility] #[id number] Start Date: 11/05/15 Status: Ordered Results No [...] Extracted from: Title: Office Visit Note Author: Magalys Morales HUMAN DEVELOPMENT PROFESSOR Date: 11/12/15 Assessment/Plan 1.Right middle lobe pneumonia XRAY results reviewed with patient, IMPRESSION: Finding consistent with right middle lobe pneumonia. [1] BP recheck after chest x-ray was 140/98. Do not take mucinex D because it can elevate BP. Start levaquin since BP and other vitals are stable currently, I believe it is appropriate to continue outpatient care for this. If not improving over the next 24-48 hours or breathing effort becomes more labored or increased SOB, go to ER. If BP 160/100 or above, go to ER. Pt has home cuff and will check her BP regularly. Otherwise follow up with PCP this week for recheck. Questions were answered. Patient verbalized understanding. Patient left in stable condition. Ordered: Office Visit Level 3 Est 08492 2.Shortness of breath Gave kenalog 60 mg in office. Stop home steroids. Ordered: Office Visit Level 3 Est 42598 Cough Ordered: XR Chest 2 Views Orders: levofloxacin, 750 mg 1 tabs, Oral, q24hr, X 7 days, # 7 tabs, 0 Refill (s), Pharmacy: [facility] #[id number], 1 tabs Oral q24hr,x7 days
--- OUTSIDE RECORDS SUMMARY | 2016-07-07 06:34 | XMS REPORT | Referral Summary ---
Author Author [facility] [place] Organization [facility], [place] Address Unknown Phone Unavailable Care Team Providers Care Manager Truck Name Role Phone Chantelle Helms Primary Care Physician [phone] Encounter [facility] [id number] Date(s): 11/02/15 - 11/02/15 [facility] [place] [address] [place] [address] Discharge Diagnosis: Obstructive sleep apnea, adult Discharge Diagnosis: Restless legs syndrome (RLS) Discharge Diagnosis: Restless leg syndrome Discharge Disposition: 01-Home or Self Care Attending Physician: Shari Burton Admitting Physician: Shari Burton Vital Signs Most recent to 1 oldest [Reference Range]: Peripheral Pulse 73 bpm Rate [60-100 bpm] (11/02/15 8:11 AM) Blood Pressure 122/80 mmHg [90-140/60-90 mmHg] (11/02/15 8:11 AM) SpO2 96 % (11/02/15 8:11 AM) Problem List Condition Effective Dates Status [...] hours., # 30 caps, 11 Refill(s), Pharmacy: [facility] #[id number], Take 4 caps for a cold sore. [...] # 16 unknown unit, 2 Refill(s), eRx: [facility] #[id number], USE 2 SPRAYS IN EACH NOSTRIL DAILY NEEDED Start Date: 12/01/14 Status: Ordered gabapentin 100 mg oral capsule See Instructions, 1 cap daily at 7PM x 3 days, then 2 caps daily at 7PM x 3 days , then 3 caps daily at 7PM until next appt., # 60 tabs, 1 Refill(s), Pharmacy: [facility] #[id number], 1 cap daily at 7PM x 3 days, then 2 caps daily at 7PM x 3 days, th... Start Date: 11/02/15 Status: Ordered levothyroxine 25 mcg (0.025 mg) oral tablet See Instructions, TAKE ONE TABLET BY MOUTH EVERY DAY, # 90 tabs, eRx: [facility] #[id number], TAKE ONE TABLET BY MOUTH EVERY DAY [...] allergies, # 5 mL, 5 Refill(s), Pharmacy: [facility] #[id number] Start Date: 11/07/14 Status: Ordered Requip 1 mg oral tablet See Instructions, TAKE 1 TABLET BY MOUTH 9 TIMES EACH DAY, # 270 tabs, 2 Refill( s), eRx: [facility] #[id number], TAKE 1 TABLET BY MOUTH 9 TIMES EACH DAY Start Date: 05/21/15 Status: Ordered Singulair 10 mg oral tablet 10 mg 1 tabs, Oral, qPM, # 30 tabs, 11 Refill(s), Pharmacy: [facility] # [id number], 1 tabs Oral qPM Start Date: 07/17/15 [...] Office Visit Note Author: Shari Burton Date: 11/02/15 Assessment/Plan 1.Obstructive sleep apnea, adult - Adequate treatment with CPAP objectively at current pressure withfeelings of inadequate air pressure when initially putting the mask on and suboptimaladherence to therapy. Adjust pressure to 7-12cm. Work on increasing time on CPAP. Continue CPAP with all sleep at 7-12cm. RT to review humidity and see her for supplies. We reviewed cleaning and supply replacement today. -CPAP download reviewed with the patient and patient is benefitting from treatment. -Avoid driving , partaking in hazardous activities, or operating heavy machinery if drowsy. -Continue appropriate cleaning of the machine/humidifier and update of all supplies including mask , tubing , and filters . -Return for follow-up in 4-6 weeks. Return/call sooner if any problems arise in the meantime. RLS -Uncontrolled in the evenings at this time. She is on very high doses of Requip and there is concern for augmentation from this medication. Goal is to wean her off some of the Requip or possibly even altogether. For now, will add gabapentin 100mg to take at 7PM before she experiences the worst of her symptoms. She will take 1 cap x 3 days, then 2 caps x 3 days then 3 caps until next seen for a total of 300mg daily. Side effects and dosage of this medication reviewed with her. Work on titrating medication and weaning Requip. -Avoid Benadryl and caffeine. -Check lab today to look for iron deficiency. -F/u in 4-6 weeks with me for recheck and in [address] Ornelas for ongoing med management. Orders: gabapentin, See Instructions, 1 cap daily at 7PM x 3 days, then 2 caps daily at 7PM x 3 days, then 3 caps daily at 7PM until next appt., # 60 tabs , 1 Refill(s), Pharmacy: [facility] #[id number], 1 cap daily at 7PM x 3 days, then 2 caps daily at 7PM x 3 days, th... Basic Metabolic Panel Ferritin Iron Profile (AMS) Magnesium Level
--- OUTSIDE RECORDS SUMMARY | 2016-07-07 06:34 | XMS REPORT | Referral Summary ---
Author Author [facility] [place] Organization [facility] Address Unknown Phone Unavailable Care Team Providers Care Water Pipe Installer Name Role Phone Chantelle Helms Primary Care Physician [phone] Encounter [facility] Date(s): 10/16/15 - 10/16/15 [facility] [place], [address] [place] [address] Discharge Disposition: 01-Home or Self Care Attending Physician: Nishant Helms MD Admitting Physician: Nishant Helms MD Vital Signs Most recent to 1 oldest [Reference Range]: Temperature Tympanic 36.0 degC [36.6-38.1 degC] *LOW* (10/16/15 7:01 AM) Peripheral Pulse 70 bpm Rate [60-100 bpm] (10/16/15 7:01 AM) Blood Pressure 132/84 mmHg [90-140/60-90 mmHg] (10/16/15 7:01 AM) Problem List Condition Effective Dates Status [...] # 30 caps, 11 Refill(s), Pharmacy: [facility] #[id number], Take 4 caps for a cold sore. [...] 16 unknown unit, 2 Refill(s), eRx: [facility] #[id number], USE 2 SPRAYS IN EACH NOSTRIL DAILY NEEDED Start Date: 12/01/14 Status: Ordered levothyroxine 25 mcg (0.025 mg) oral tablet See Instructions, TAKE ONE TABLET BY MOUTH EVERY DAY, # 90 tabs, eRx: [facility] #[id number], TAKE ONE TABLET BY MOUTH EVERY DAY [...] allergies, # 5 mL, 5 Refill(s), Pharmacy: [facility] #[id number] Start Date: 11/07/14 Status: Ordered Requip 1 mg oral tablet See Instructions, TAKE 1 TABLET BY MOUTH 9 TIMES EACH DAY, # 270 tabs, 2 Refill( s), eRx: [facility] #[id number], TAKE 1 TABLET BY MOUTH 9 TIMES EACH DAY Start Date: 05/21/15 Status: Ordered Singulair 10 mg oral tablet 10 mg 1 tabs, Oral, qPM, # 30 tabs, 11 Refill(s), Pharmacy: [facility] # [id number], 1 tabs Oral qPM Start Date: 07/17/15 [...] Diagnosis Body Site S/P sinus surgery 2009 [facility] - Total abdominal hysterectomy and 2007 bilateral salpingo-oophorectomy1 1had endometriosis and ovarian cysts; nothing precancerous; no abnormal pap smears Social History Social History Type Response Smoking Status Never smoker Assessment and Plan Extracted from: Title: Ambulatory Patient Education Author: Nishant Helms MD Date: ENT Sleep Apnea Sleep apnea is a sleep disorder characterized by abnormal pauses in breathing while you sleep. When your breathing pauses, the level of oxygen in your blood decreases. This causes you to move out of deep sleep and into light sleep. As a result, your quality of sleep is poor, and the system that carries your blood throughout your body (cardiovascular system) experiences stress. If sleep apnea remains untreated, the following conditions can develop: High blood pressure (hypertension). Coronary artery disease. Inability to achieve or maintain an erection (impotence). Impairment of your thought process (cognitive dysfunction). There are three types of sleep apnea: 1.Obstructive sleep apneaPauses in breathing during sleep because of a blocked airway. 2.Central sleep apneaPauses in breathing during sleep because the area [...] Trouble concentrating. Forgetfulness. Decreased interest in sex. Unexplained sleepiness. DIAGNOSIS In order to diagnose sleep apnea, your caregiver will perform a physical examination. A sleep study done in the comfort of your own home may be appropriate if you are otherwise healthy. Your caregiver may also recommend that you [...] airway to create a wider passage way. This information is not intended to replace advice given to you by your health care provider. Make sure you discuss any questions you have with your health care provider. Document Released: 02/13/2003 Document Revised: 03/16/2015 Document Reviewed: [facility] Patient Information 2016 [facility]. Family Medicine Asthma, Adult Asthma is a recurring condition in which the airways tighten and narrow. Asthma can make it difficult to breathe. It can cause coughing, wheezing, and shortness of breath. Asthma episodes, also called asthma attacks, range from minor to life-threatening. Asthma cannot be cured, but medicines and lifestyle changes can help control it. CAUSES Asthma is believed to be caused by inherited (genetic) and environmental factors , but its exact cause is unknown. Asthma may be triggered by allergens, lung infections, or irritants in the air. Asthma triggers are different for each person. Common triggers include: Animal dander. Dust mites. Cockroaches. Pollen from trees or grass. Mold. Smoke. Air pollutants such as dust, household clay washer, hair sprays, aerosol sprays, paint fumes, strong chemicals, or strong odors. Cold air, weather changes, and winds (which increase molds and pollens in the air). Strong emotional expressions such as crying or laughing hard. Stress. Certain medicines (such as aspirin) or types of drugs (such as beta- blockers). Sulfites in foods and drinks. Foods and drinks that may contain sulfites include dried fruit, potato chips, and sparkling grape juice. Infections or inflammatory conditions such as the flu, a cold, or an inflammation of the nasal membranes (rhinitis). Gastroesophageal reflux disease (GERD). Exercise or strenuous activity. SYMPTOMS Symptoms may occur immediately after asthma is triggered or many hours later. Symptoms include: Wheezing. Excessive nighttime or facilities planner coughing. Frequent or severe coughing with a common cold. Chest tightness. Shortness of breath. DIAGNOSIS The diagnosis of asthma is made by a review of your medical history and a physical exam. Tests may also be performed. These may include: Lung function studies. These tests show how much air you breathe in and out. Allergy tests. Imaging tests such as X-rays. TREATMENT Asthma cannot be cured, but it can usually be controlled. Treatment involves identifying and avoiding your asthma triggers. It also involves medicines. There are 2 classes of medicine used for asthma treatment: Controller medicines. These prevent asthma symptoms from occurring. They are usually taken every day. Reliever or rescue medicines. These quickly relieve asthma symptoms. They are used as needed and provide short-term relief. Your health care provider will help you create an asthma action plan. An asthma action plan is a written plan for managing and treating your asthma attacks. It includes a list of your asthma triggers and how they may be avoided. It also includes information on when medicines should be taken and when their dosage should be changed. An action plan may also involve the use of a device called a peak flow meter. A peak flow meter measures how well the lungs are working. It helps you monitor your condition. HOME CARE INSTRUCTIONS Take medicines only as directed by your health care provider. Speak with your health care provider if you have questions about how or when to take the medicines. Use a peak flow meter as directed by your health care provider. Record and keep track of readings. Understand and use the action plan to help minimize or stop an asthma attack without needing to seek medical care. Control your home environment in the following ways to help prevent asthma attacks: Do not smoke. Avoid being exposed to secondhand smoke. Change your heating and air conditioning filter regularly. Limit your use of fireplaces and wood stoves. Get rid of pests (such as roaches and mice) and their droppings. Throw away plants if you see mold on them. Clean your floors and dust regularly. Use unscented cleaning products. Try to have someone else vacuum for you regularly. Stay out of rooms while they are being vacuumed and for a short while afterward. If you vacuum, use a dust mask from a hardware store, a double-layered or microfilter vacuum stable cleaner bag, or a vacuum stable cleaner with a HEPA filter. Replace carpet with wood, tile, or vinyl gerardo. Carpet can trap dander and dust. Use allergy-proof pillows, mattress covers, and box spring covers. Wash bed sheets and blankets every week in hot water and dry them in a dryer. Use blankets that are made of polyester or cotton. Clean bathrooms and leonel with bleach. If possible, have someone repaint the craig in these rooms with mold-resistant paint. Keep out of the rooms that are being cleaned and painted. Wash hands frequently. SEEK MEDICAL CARE IF: You have wheezing, shortness of breath, or a cough even if taking medicine to prevent attacks. The colored mucus you cough up (sputum) is thicker than usual. Your sputum changes from clear or white to yellow, green, mendoza, or bloody. You have any problems that may be related to the medicines you are taking (such as a rash, itching, swelling, or trouble breathing). You are using a reliever medicine more than 23 times per week. Your peak flow is still at 5079% of your personal best after following your action plan for 1 hour. You have a fever. SEEK IMMEDIATE MEDICAL CARE IF: You seem to be getting worse and are unresponsive to treatment during an asthma attack. You are short of breath even at rest. You get short of breath when doing very little physical activity. You have difficulty eating, drinking, or talking due to asthma symptoms. You develop chest pain. You develop a fast heartbeat. You have a bluish color to your lips or fingernails. You are light-headed, dizzy, or faint. Your peak flow is less than 50% of your personal best. MAKE SURE YOU: Understand these instructions. Will watch your condition. Will get help right away if you are not doing well or get worse. This information is not intended to replace advice given to you by your health care provider. Make sure you discuss any questions you have with your health care provider. Document Released: 02/23/2006 Document Revised: 03/16/2015 Document Reviewed: [facility] Patient Information 2016 [facility]. Hypertension Hypertension is another name for high blood pressure. High blood pressure forces your heart to work harder to pump blood. A blood pressure reading has two numbers, which includes a higher number over a lower number (example: 110/72 ). HOME CARE Have your blood pressure rechecked by your doctor. Only take medicine as told by your doctor. Follow the directions carefully. The medicine does not work as well if you skip doses. Skipping doses also puts you at risk for problems. Do not smoke. Monitor your blood pressure at home as told by your doctor. GET HELP IF: You think you are having a reaction to the medicine you are taking. You have repeat headaches or feel dizzy. You have puffiness (swelling) in your ankles. You have trouble with your vision. GET HELP RIGHT AWAY IF: You get a very bad headache and are confused. You feel weak, numb, or faint. You get chest or belly (abdominal) pain. You throw up (vomit). You cannot breathe very well. MAKE SURE YOU: Understand these instructions. Will watch your condition. Will get help right away if you are not doing well or get worse. This information is not intended to replace advice given to you by your health care provider. Make sure you discuss any questions you have with your health care provider. Document Released: 08/11/2008 Document Revised: 02/28/2014 Document Reviewed: [facility] Patient Information 2016 [facility]. Restless Legs Syndrome Restless legs syndrome is a movement disorder. It may also be called a sensorimotor disorder. CAUSES No one knows what specifically causes restless legs syndrome, but it tends to run in families. It is also more common in people with low iron, in , in people who need dialysis, and those with nerve damage (neuropathy).Some medications may make restless legs syndrome worse.Those medications include drugs to treat high blood pressure, some heart conditions, nausea, colds, allergies, and depression. SYMPTOMS Symptoms include uncomfortable sensations in the legs. These leg sensations are worse during periods of inactivity or rest. They are also worse while sitting or lying down. Individuals that have the disorder describe sensations in the legs that feel like: Pulling. Drawing. Crawling. Worming. [place]. Tingling. Pins and needles. Prickling. Pain. The sensations are usually accompanied by an overwhelming urge to move the legs. Sudden muscle jerks may also occur. Movement provides temporary relief from the discomfort. In rare cases, the arms may also be affected. Symptoms may interfere with going to sleep (sleep onset insomnia). Restless legs syndrome may also be related to periodic limb movement disorder (PLMD). PLMD is another more common motor disorder. It also causes interrupted sleep. The symptoms from PLMD usually occur most often when you are awake. TREATMENT Treatment for restless legs syndrome is symptomatic. This means that the symptoms are treated. Massage and cold compresses may provide temporary relief. Walk, stretch, or take a cold or hot bath. Get regular exercise and a good night's sleep. Avoid caffeine, alcohol, nicotine, and medications that can make it worse. Do activities that provide mental stimulation like discussions, needlework, and video games. These may be helpful if you are not able to walk or stretch. Some medications are effective in relieving the symptoms. However, many of these medications have side effects. Ask your caregiver about medications that may help your symptoms. Correcting iron deficiency may improve symptoms for some patients. This information is not intended to replace advice given to you by your health care provider. Make sure you discuss any questions you have with your health care provider. Document Released: 02/13/2003 Document Revised: 03/16/2015 Document Reviewed: [facility] Patient Information 2016 [facility]. No follow up information was provided. Extracted from: Title: multiple medical problems Author: Nishant Helms MD Date: 10/16/15 Impression and Plan Diagnosis Restless legs syndrome (RLS) (LRT84-WU G25.81, Working, Medical). Benign essential hypertension (WGP36-HR I10, Working, Medical). Mitral valve regurgitation (MDE89-SF I34.0, Working, Medical). Obstructive sleep apnea, adult (NXS52-UI G47.33, Working, Medical). Adult hypothyroidism (GYC28-MJ E03.9, Working, Medical). Asthma, mild intermittent (MQE37-YE J45.20, Working, Medical). Hypercholesterolemia (KQT14-ES E78.0, Working, Medical). Allergic rhinitis due to pollen (IML87-TS J30.1, Working, Medical). Plan: 1) Healthy diet, high quality sleep, and daily exercise helps most things. 2) Continue your current meds. 3) See me in 6 months and as needed. 4) Followup with your sleep doctor to make sure that your ELIZABETH is adequately treated, as it might be contributing to your headaches.. Orders Orders (Selected) Outpatient Orders Future (On Hold) TSH 3rd Generation: Order Office Visit Level 4 Est 75509: Prescriptions Prescribed acyclovir 200 mg oral capsule: See Instructions, Take 4 caps for a cold sore. May repeat in 8-12 hours., 30 caps, 11 Refill(s). Dx/Order Association Plan: Diagnosis: Adult hypothyroidism Comment: Ordered: Office Visit Level 4 Est [id number]; 10/16/15 18:45:00 CDT, Obstructive sleep apnea, adult | Restless legs syndrome (RLS) | Benign essential hypertension | Hypercholesterolemia | Adult hypothyroidism | Asthma, mild intermittent | Allergic rhinitis due to pollen | Mitral valve regurgitation Diagnosis: Allergic rhinitis due to pollen Comment: Ordered: Office Visit Level 4 Est [id number]; 10/16/15 18:45:00 CDT, Obstructive sleep apnea, adult | Restless legs syndrome (RLS) | Benign essential hypertension | Hypercholesterolemia | Adult hypothyroidism | Asthma, mild intermittent | Allergic rhinitis due to pollen | Mitral valve regurgitation Diagnosis: Asthma, mild intermittent Comment: Ordered: Office Visit Level 4 Est [id number]; 10/16/15 18:45:00 CDT, Obstructive sleep apnea, adult | Restless legs syndrome (RLS) | Benign essential hypertension | Hypercholesterolemia | Adult hypothyroidism | Asthma, mild intermittent | Allergic rhinitis due to pollen | Mitral valve regurgitation Diagnosis: Benign essential hypertension Comment: Ordered: Office Visit Level 4 Est [id number]; 10/16/15 18:45:00 CDT, Obstructive sleep apnea, adult | Restless legs syndrome (RLS) | Benign essential hypertension | Hypercholesterolemia | Adult hypothyroidism | Asthma, mild intermittent | Allergic rhinitis due to pollen | Mitral valve regurgitation Diagnosis: Hypercholesterolemia Comment: Ordered: Office Visit Level 4 Est 85659; 10/16/15 18:45:00 CDT, Obstructive sleep apnea, adult | Restless legs syndrome (RLS) | Benign essential hypertension | Hypercholesterolemia | Adult hypothyroidism | Asthma, mild intermittent | Allergic rhinitis due to pollen | Mitral valve regurgitation Diagnosis: Mitral valve regurgitation Comment: Ordered: Office Visit Level 4 Est [id number]; 10/16/15 18:45:00 CDT, Obstructive sleep apnea, adult | Restless legs syndrome (RLS) | Benign essential hypertension | Hypercholesterolemia | Adult hypothyroidism | Asthma, mild intermittent | Allergic rhinitis due to pollen | Mitral valve regurgitation Diagnosis: Obstructive sleep apnea, adult Comment: Ordered: Office Visit Level 4 Est [id number]; 10/16/15 18:45:00 CDT, Obstructive sleep apnea, adult | Restless legs syndrome (RLS) | Benign essential hypertension | Hypercholesterolemia | Adult hypothyroidism | Asthma, mild intermittent | Allergic rhinitis due to pollen | Mitral valve regurgitation Diagnosis: Restless legs syndrome (RLS) Comment: Ordered: Office Visit Level 4 Est [id number]; 10/16/15 18:45:00 CDT, Obstructive sleep apnea, adult | Restless legs syndrome (RLS) | Benign essential hypertension | Hypercholesterolemia | Adult hypothyroidism | Asthma, mild intermittent | Allergic rhinitis due to pollen | Mitral valve regurgitation Additional Orders: Comment: Ordered: acyclovir 200 mg oral capsule,See Instructions, Take 4 caps for a cold sore. May repeat in 8-12 hours., # 30 caps, 11 Refill(s), Pharmacy: [facility] #[id number], Take 4 caps for a cold sore. May repeat in 8-12 hours. Ordered: omega-3 polyunsaturated fatty acids 1000 mg oral capsule,1 ,000 mg 1 caps, Oral, Daily, 0 Refill(s) End of Orders .
--- OUTSIDE RECORDS SUMMARY | 2016-07-07 06:34 | XMS REPORT | Referral Summary ---
Author Author [facility] Organization [facility] Address Unknown Phone Unavailable Care Team Providers Care [employer] Supervisor Name Role Phone Chantelle Helms Primary Care Physician [phone] Encounter VC Date(s): 07/17/15 - 07/17/15 [facility], [address] [place] [id number] Discharge Disposition: 01-Home or Self Care Attending Physician: Nishant Helms MD Admitting Physician: Nishant Helms MD Vital Signs Most recent to 1 oldest [Reference Range]: Temperature Tympanic 36.4 degC [36.6-38.1 degC] *LOW* (07/17/15 10:21 AM) Peripheral Pulse 72 bpm Rate [60-100 bpm] (07/17/15 10:21 AM) Respiratory Rate 16 br/min [14-20 br/min] (07/17/15 10:21 AM) Blood Pressure 128/88 mmHg [90-140/60-90 mmHg] (07/17/15 10:21 AM) Problem List Condition Effective Dates Status [...] # 30 caps, 11 Refill(s), Pharmacy: [facility] #[id number], Take 4 caps for a cold sore. [...] 16 unknown unit, 2 Refill(s), eRx: [facility] #[id number], USE 2 SPRAYS IN EACH NOSTRIL DAILY NEEDED Start Date: 12/01/14 Status: Ordered levothyroxine 25 mcg (0.025 mg) oral tablet See Instructions, TAKE ONE TABLET BY MOUTH EVERY DAY, # 90 tabs, eRx: [facility] #[id number], TAKE ONE TABLET BY MOUTH EVERY DAY Start Date: 03/26/15 Status: Ordered Nasacort AQ sprays, Nasal, Daily, 0 Refill(s) Start Date: 07/13/14 Status: Ordered omega-3 polyunsaturated fatty acids 1000 mg oral capsule 1 caps, Oral, Daily, 0 Refill(s) Start Date: 12/06/13 Status: Ordered Patanol 0.1% ophthalmic solution 1 drops, Eye-Both, BID, as needed for allergies, # 5 mL, 5 Refill(s), Pharmacy: [facility] #[id number] Start Date: 11/07/14 Status: Ordered Requip 1 mg oral tablet See Instructions, TAKE 1 TABLET BY MOUTH 9 TIMES EACH DAY, # 270 tabs, 2 Refill( s), eRx: [facility] #[id number], TAKE 1 TABLET BY MOUTH 9 TIMES EACH DAY Start Date: 05/21/15 Status: Ordered Singulair 10 mg oral tablet 10 mg 1 tabs, Oral, qPM, # 30 tabs, 11 Refill(s), Pharmacy: [facility] # [id number], 1 tabs Oral qPM Start Date: 07/17/15 Status: Ordered Symbicort 160 mcg-4.5 mcg/inh inhalation aerosol 2 puffs, Inhalation, BID, as needed for asthma, # 10 g, 11 Refill(s) Start Date: 07/17/15 Status: Ordered Results Chemistry Most recent to 1 oldest [Reference Range]: LDL Direct [0-129 148 mg/dL mg/dL] *HI* (07/17/15 11:06 AM) TSH [0.35-4.94] 4.44 (07/17/15 11:06 AM) Immunizations Vaccine Date Refusal Reason influenza virus vaccine, inactivated1 12/06/13 pneumococcal 23-polyvalent vaccine 11/07/14 tetanus-diphth toxoids (Td) adult/adol 12/28/02 1Result Comment: [12/06/2013] See scanned document Procedures Procedure Date Related Diagnosis Body Site Collection of venous blood by venipuncture 07/17/15 S/P sinus surgery 2009 [facility] - Total abdominal hysterectomy and 2007 bilateral salpingo-oophorectomy1 1had endometriosis and ovarian cysts; nothing precancerous; no abnormal pap smears Social History Social History Type Response Smoking Status Never smoker Assessment and Plan Extracted from: Title: Ambulatory Patient Education Author: Nishant Helms MD Date: 07/16 Family Medicine Asthma Attack Prevention Although there is no way to prevent asthma from starting, you can take steps to control the disease and reduce its symptoms. Learn about your asthma and how to control it. Take an active role to control your asthma by working with your health care provider to create and follow an asthma action plan. An asthma action plan guides you in: Taking your medicines properly. Avoiding things that set off your asthma or make your asthma worse ( asthma triggers). Tracking your level of asthma control. Responding to worsening asthma. Seeking emergency care when needed. To track your asthma, keep records of your symptoms, check your peak flow number using a handheld device that shows how well air moves out of your lungs ( peak flow meter), and get regular asthma checkups. WHAT ARE SOME WAYS TO PREVENT AN ASTHMA ATTACK? Take medicines as directed by your health care provider. Keep track of your asthma symptoms and level of control. With your health care provider, write a detailed plan for taking medicines and managing an asthma attack. Then be sure to follow your action plan. Asthma is an ongoing condition that needs regular monitoring and treatment. Identify and avoid asthma triggers. Many outdoor allergens and irritants (such as pollen, mold, cold air, and air pollution) can trigger asthma attacks. Find out what your asthma triggers are and take steps to avoid them. Monitor your breathing. Learn to recognize warning signs of an attack, such as coughing, wheezing, or shortness of breath. Your lung function may decrease before you notice any signs or symptoms, so regularly measure and record your peak airflow with a home peak flow meter. Identify and treat attacks early. If you act quickly, you are less likely to have a severe attack. You will also need less medicine to control your symptoms. When your peak flow measurements decrease and alert you to an upcoming attack, take your medicine as instructed and immediately stop any activity that may have triggered the attack. If your symptoms do not improve, get medical help. Pay attention to increasing quick-relief inhaler use. If you find yourself relying on your quick-relief inhaler, your asthma is not under control. See your health care provider about adjusting your treatment. WHAT CAN MAKE MY SYMPTOMS WORSE? A number of common things can set off or make your asthma symptoms worse and cause temporary increased inflammation of your airways. Keep track of your asthma symptoms for several weeks, detailing all the environmental and emotional factors that are linked with your asthma. When you have an asthma attack, go back to your asthma diary to see which factor, or combination of factors, might have contributed to it. Once you know what these factors are, you can take steps to control many of them. If you have allergies and asthma, it is important to take asthma prevention steps at home. Minimizing contact with the substance to which you are allergic will help prevent an asthma attack. Some triggers and ways to avoid these triggers are: Animal Dander: Some people are allergic to the flakes of skin or dried saliva from animals with fur or feathers. There is no such thing as a hypoallergenic dog or cat breed. All dogs or cats can cause allergies, even if they don't shed. Keep these pets out of your home. If you are not able to keep a pet outdoors, keep the pet out of your bedroom and other sleeping areas at all times, and keep the door closed. Remove carpets and furniture covered with cloth from your home. If that is not possible, keep the pet away from fabric-covered furniture and carpets. Dust Mites: Many people with asthma are allergic to dust mites. Dust mites are tiny bugs that are found in every home in mattresses, pillows, carpets, fabric-covered furniture, bedcovers, clothes, stuffed toys, and other fabric-covered items. Cover your mattress in a special dust-proof cover. Cover your pillow in a special dust-proof cover, or wash the pillow each week in hot water. Water must be hotter than 130 F (54.4 C) to kill dust mites. Cold or warm water used with detergent and bleach can also be effective. Wash the sheets and blankets on your bed each week in hot water. Try not to sleep or lie on cloth-covered cushions. Call ahead when traveling and ask for a smoke-free hotel room. Bring your own bedding and pillows in case the hotel only supplies feather pillows and down comforters, which may contain dust mites and cause asthma symptoms. Remove carpets from your bedroom and those laid on concrete, if you can. Keep stuffed toys out of the bed, or wash the toys weekly in hot water or cooler water with detergent and bleach. Cockroaches: Many people with asthma are allergic to the droppings and remains of cockroaches. Keep food and garbage in closed containers. Never leave food out. Use poison baits, traps, powders, gels, or paste (for example, boric acid ). If a spray is used to kill cockroaches, stay out of the room until the odor goes away. Indoor Mold: Fix leaky faucets, pipes, or other sources of water that have mold around them. Clean floors and moldy surfaces with a fungicide or diluted bleach. Avoid using humidifiers, vaporizers, or swamp coolers. These can spread molds through the air. Pollen and Outdoor Mold: When pollen or mold spore counts are high, try to keep your windows closed. Stay indoors with windows closed from late morning to afternoon. Pollen and some mold spore counts are highest at that time. Ask your health care provider whether you need to take anti-inflammatory medicine or increase your dose of the medicine before your allergy season starts. Other Irritants to Avoid: Tobacco smoke is an irritant. If you smoke, ask your health care provider how you can quit. Ask family members to quit smoking, too. Do not allow smoking in your home or car. If possible, do not use a wood-burning stove, kerosene heater, or fireplace. Minimize exposure to all sources of smoke, including incense, candles, fires, and fireworks. Try to stay away from strong odors and sprays, such as perfume, talcum powder, hair spray, and paints. Decrease humidity in your home and use an indoor air cleaning device. Reduce indoor humidity to below 60%. Dehumidifiers or central air conditioners can do this. Decrease house dust exposure by changing furnace and air cooler filters frequently. Try to have someone else vacuum for you once or twice a week. Stay out of rooms while they are being vacuumed and for a short while afterward. If you vacuum, use a dust mask from a hardware store, a double-layered or microfilter vacuum pin cleaner bag, or a vacuum pin cleaner with a HEPA filter. Sulfites in foods and beverages can be irritants. Do not drink beer or wine or eat dried fruit, processed potatoes, or shrimp if they cause asthma symptoms. Cold air can trigger an asthma attack. Cover your nose and mouth with a scarf on cold or windy days. Several health conditions can make asthma more difficult to manage, including a runny nose, sinus infections, reflux disease, psychological stress, and sleep apnea. Work with your health care provider to manage these conditions. Avoid close contact with people who have a respiratory infection such as a cold or the flu, since your asthma symptoms may get worse if you catch the infection. Wash your hands thoroughly after touching items that may have been handled by people with a respiratory infection. Get a flu shot every year to protect against the flu virus, which often makes asthma worse for days or weeks. Also get a pneumonia shot if you have not previously had one. Unlike the flu shot, the pneumonia shot does not need to be given yearly. Medicines: Talk to your health care provider about whether it is safe for you to take aspirin or non-steroidal anti-inflammatory medicines (NSAIDs). In a small number of people with asthma, aspirin and NSAIDs can cause asthma attacks. These medicines must be avoided by people who have known aspirin-sensitive asthma. It is important that people with aspirin-sensitive asthma read labels of all apsa-uyf-trkaqhq medicines used to treat pain, colds, coughs, and fever. Beta-blockers and SERGEY inhibitors are other medicines you should discuss with your health care provider. HOW CAN I FIND OUT WHAT I AM ALLERGIC TO? Ask your asthma health care provider about allergy skin testing or blood testing (the RAST test) to identify the allergens to which you are sensitive. If you are found to have allergies, the most important thing to do is to try to avoid exposure to any allergens that you are sensitive to as much as possible. Other treatments for allergies, such as medicines and allergy shots ( immunotherapy) are available. CAN I EXERCISE? Follow your health care provider's advice regarding asthma treatment before exercising. It is important to maintain a regular exercise program, but vigorous exercise or exercise in cold, humid, or dry environments can cause asthma attacks, especially for those people who have exercise-induced asthma. This information is not intended to replace advice given to you by your health care provider. Make sure you discuss any questions you have with your health care provider. Document Released: 02/11/2010 Document Revised: 02/28/2014 Document Reviewed: [facility] Patient Information 2015 [email or web address] [facility]. No follow up information was provided. Extracted from: Title: allergies, HTN, asthma, ELIZABETH Author: Nishant Helms MD Date: Impression and Plan Diagnosis Restless legs syndrome (RLS) (WGS25-EH G25.81, Working, Medical). Benign essential hypertension (BAW71-PQ I10, Working, Medical). ELIZABETH on CPAP (MDA36-OX G47.33, Working, Medical). Allergic rhinitis due to pollen (YWZ46-LE J30.1, Working, Medical). Mitral valve regurgitation (RNO29-PS I34.0, Working, Medical). Adult hypothyroidism (BGR41-TZ E03.9, Working, Medical). Hypercholesterolemia (TOI93-DQ E78.0, Working, Medical). Asthma, mild intermittent (CDM54-IT J45.20, Working, Medical). Plan: 1) Use the Symbicort regularly, then gradually reduce it. 2) Take the Singulair daily, during allergy seasons. 3) Continue your routine meds, but you may stay off the Losartan. 4) Monitor your BP at home. 5) Lab today. 6) See me in 3 months and as needed.. Orders Orders (Selected) Outpatient Orders Ordered Office Visit Level 4 Est 00019: Future (On Hold) LDL Direct: TSH 3rd Generation: Prescriptions Prescribed Singulair 10 mg oral tablet: 10 mg=1 tabs, Oral, qPM, 30 tabs, 11 Refill(s) Symbicort 160 mcg-4.5 mcg/inh inhalation aerosol: 2 puffs, Inhalation, BID, PRN : as needed for asthma, 10 g, 11 Refill(s). Dx/Order Association Plan: Diagnosis: Adult hypothyroidism Comment: Diagnosis: Allergic rhinitis due to pollen Comment: Ordered: Office Visit Level 4 Est 63823; 07/17/15 10:41:00 CDT, Asthma, mild intermittent | Restless legs syndrome (RLS) | Benign essential hypertension | ELIZABETH on CPAP | Allergic rhinitis due to pollen Diagnosis: Asthma, mild intermittent Comment: Ordered: Office Visit Level 4 Est 54914; 07/17/15 10:41:00 CDT, Asthma, mild intermittent | Restless legs syndrome (RLS) | Benign essential hypertension | ELIZABETH on CPAP | Allergic rhinitis due to pollen Diagnosis: Benign essential hypertension Comment: Ordered: Office Visit Level 4 Est 44396; 07/17/15 10:41:00 CDT, Asthma, mild intermittent | Restless legs syndrome (RLS) | Benign essential hypertension | ELIZABETH on CPAP | Allergic rhinitis due to pollen Diagnosis: Hypercholesterolemia Comment: Diagnosis: Mitral valve regurgitation Comment: Diagnosis: ELIZABETH on CPAP Comment: Ordered: Office Visit Level 4 Est 62538; 07/17/15 10:41:00 CDT, Asthma, mild intermittent | Restless legs syndrome (RLS) | Benign essential hypertension | ELIZABETH on CPAP | Allergic rhinitis due to pollen Diagnosis: Restless legs syndrome (RLS) Comment: Ordered: Office Visit Level 4 Est [id number]; 07/17/15 10:41:00 CDT, Asthma, mild intermittent | Restless legs syndrome (RLS) | Benign essential hypertension | ELIZABETH on CPAP | Allergic rhinitis due to pollen Diagnosis: Adult hypothyroidism Comment: Diagnosis: Hypercholesterolemia Comment: Additional Orders: Comment: Ordered: Singulair 10 mg oral tablet,10 mg 1 tabs, Oral, qPM, # 30 tabs, 11 Refill(s), Pharmacy: [facility] #[id number], 1 tabs Oral qPM Ordered: Symbicort 160 mcg-4.5 mcg/inh inhalation aerosol,2 puffs, Inhalation, BID, as needed for asthma, # 10 g, 11 Refill(s) End of Orders ."
[2016-07-07 06:35] VITALS: BP 138/84; PULSE 70; RESP 15; TEMP 98.3; O2SAT 98; Ht 168.9 cm; Wt 120.6 kg
[2016-07-07] MEDS ORDERED: LR 1,000 ML IV SCH (07:00)
[2016-07-07] MEDS ORDERED: LIDOCAINE 1% (10mg/ml) 2ml SDV INJ ONE (07:00)
--- NOTE | 2016-07-07 07:28 | ANESPREOP ---
Anesthesia Record Date and Time DATE: 07/07/16 TIME: 07:27 Pre-Op Diagnosis cancer screening Proposed Surgical Procedure colonoscopy NPO since: 2199 Allergies: Coded Allergies: Penicillins (Verified Allergy, Unknown, 07/07/16) Ht/Wt/BMI Height: 5 ' 6.50 " Weight: 120.600 kg BMI: 42.3 kg/m2 Vital Signs Date Time Temp Pulse Resp B/P Pulse Ox O2 Delivery O2 Flow Rate FiO2 07/07/16 06:35 98.3 70 15 138/84 98 Room Air Medications Inpatient Medications Current Medications Medications (Trade) Dose Ordered Sig/Jose M Start Time Stop Time Status Last Admin Dose Admin Lactated Ringer's (Lactated Ringers) 1,000 ml @ 30 mls/hr Q24H 07/07/16 07:00 07/07/16 06:47 30 MLS/HR Budesonide/Formoterol Fumarate (Symbicort 160-4.5 Mcg Inhaler) 10.2 Gm Hfa.aer.ad, 2 PUFF INH DAILY, (Reported) Last Taken: on 07/06/16 0900 Codeine Sulf (Codeine Sulfate) 30 Mg Tablet, 1 TAB PO HS, (Reported) Last Taken: on 07/06/16 2000 Fexofenadine Hcl (Keturah) 180 Mg Tablet, Unknown Dose PO DAILY, (Reported) Last Taken: on 07/05/16 0800 Gabapentin Enacarbil (Horizant) 600 Mg Tablet.er, 2 TAB PO DAILY, (Reported) Last Taken: on 07/06/16 1730 Levothyroxine Sodium (Synthroid) 125 Mcg Tablet , 1 TAB PO ACB, (Reported) BEST IF TAKEN BEFORE BREAKFAST Last Taken: on 07/05/16 2200 Olopatadine HCl (Patanol) 50 Drop/5 Ml Drops, 1 DROP BOTH EYES BID, (Reported) Last Taken: on Unknown Date & Time [nasacort] , 2 SPRAY KELSIE DAILY, ( Reported) 2 sprays each nostril Last Taken: on 07/05/16 0800 Currently on Beta Phong: No Medical/Surgical History Anesthesia PMH: Reports: Asthma, Cancer, Pneumonia (hx), Sleep Apnea, Thyroid Disease, Denies: *Diabetes, *Hypertension, *ID, Anesthesia Reactions (no airway issues), Arthritis, Blood Transfusion Reac, CHF, COPD, CVA/Stroke/TIA, Clotting Problems, Glaucoma, Malignant Hyperthermia, Renal Disease, Seizures Smoking Status: Never smoker Has pt. smoked today?: No Use Chewing Tobacco?: No Second Hand Exposure: No Substance Use Type: does not use Alcohol Intake: none HX of Last Menstrual Period: hyst.-complete Past Surgical History Orthopedic Surgeries: No Abdominal Surgeries: No Genitourinary Surgeries: No Cardiac Surgeries: No Endocrine Surgeries: No Reproductive Surgeries: Yes - HYSTERECTOMY, 1994 Neurological Surgeries: Ear Surgeries: Nose Surgeries: Yes - SINUS, POLYPECTOMY, DEVIATED SEPTUM, 2007 Throat Surgeries: No Other Surgeries: Yes Anesthesia Adverse Reactions: FOUND none Pertinent Findings EKG Rhythm: Sinus Rhythm Physical Exam Respiratory: Lungs clear Cardiovascular: FOUND Regular rate, rhythm, FOUND No murmur Airway Assessment Mallampati Score: II TMD: 3 Fingerbreadths Teeth: Chipped Teeth/Crowns Overall Assessment: No Airway Concerns ASA: 2 Discussion Discussed risks/options/alternatives of anesthesia and questions answered. Patient consents. Nursing pain assessment noted. Present: Spouse Attestation Statement Prior to the delivery of any anesthetic medication, I examined the patient, developed the plan, obtained the patient's consent and discussed the risk and benefits of the procedure with the patient/guardian. STEVAN CUENCA CRNA July 07, 2016 07:28
[2016-07-07] MEDS ORDERED: PROPOFOL 500mg 50 ML IV ONE (08:16)
[2016-07-07 08:30] VITALS: BP 108/61; PULSE 64; RESP 16; TEMP 97; O2SAT 99
[2016-07-07 08:45] VITALS: BP 140/71; PULSE 61; RESP 16; O2SAT 98
[2016-07-07 09:00] VITALS: BP 132/75; PULSE 58; RESP 16; TEMP 97.4; O2SAT 98
--- NOTE | 2016-07-07 09:05 | ANESPO ---
Post-Op Note Date 07/07/16 Time: 09:04 Status Pt Participated in Evaluation: Pt participated in person Vital Signs Date Time Temp Pulse Resp B/P Pulse Ox O2 Delivery O2 Flow Rate FiO2 07/07/16 08:45 61 16 140/71 98 Room Air 07/07/16 08:30 97.0 5.00 Respiratory Function: Airway patent, Regular respirations Cardiovascular Function: Regular pulse Mental Status: Alert/oriented Pain Level Intensity: 0 Hydration: Taking po fluids Complications during Recovery None apparent Follow-Up Instructions Instructions Per Surgeon STEVAN CUENCA CRNA July 07, 2016 09:05
[2016-07-07 09:06] VITALS: BP 132/75; PULSE 58; RESP 16; TEMP 97.4; O2SAT 98
--- NOTE | 2016-07-07 11:09 | OPNOTEF ---
DATE OF OPERATION 07/07/2016 SURGEON Antonio Marte MD PREOPERATIVE DIAGNOSIS Colorectal cancer surveillance. POSTOPERATIVE DIAGNOSIS Colorectal cancer surveillance, normal colonoscopy. PROCEDURE Colonoscopy. ANESTHESIA TIVA BRIEF HISTORY/INDICATIONS Mrs. Cherry is a 56-year-old female who presents today to [facility] to undergo a colonoscopy to serve as a portion of her overall colorectal cancer surveillance. For completeness please refer to notes included in the patient's chart. FINDINGS Upon colonoscopy, there was no evidence for angiodysplastic lesions, polyps, diverticula or maria luz malignancies. DESCRIPTION OF PROCEDURE After informed consent was obtained, the patient was brought to the endoscopy suite and placed on the table in left lateral decubitus position. The patient subsequently underwent total intravenous anesthesia by the nurse tool grinding technician per my request. A formal timeout was then performed. Next, a digital rectal examination was performed. Normal sphincter tone. No rectal masses were appreciated. An Olympus colonoscope was inserted in the anus and advanced with the lumen of the colon under direct visualization at all times until the cecum was ascertained. Triangulation of the tenia coli, ileocecal valve and appendiceal lumen were all visualized. The scope was then slowly withdrawn, again while maintaining visualization of the lumen at all times. As stated above, the entire colon was without evidence for angiodysplastic lesions, polyps, diverticula or maria luz malignancies. The scope continued to be withdrawn until it was brought forth back into the rectal vault. A J-maneuver was then performed. No worrisome perianal pathology was noted. The scope was allowed to straighten and was withdrawn through the anal verge. The patient tolerated the procedure without difficulty and was sent back to the preop area in stable condition. Secondary to the absence of findings upon this colonoscopy, the patient will not need to undergo a repeat colonoscopy until ten years from now unless new indications should arise. GRACY
== END 2016-07-07 09:10 | disposition home or self-care (01) ==
LOC: SCU 06:23
PROVIDERS: ATTEND Surgery
DX: Z12.11 Encounter for screening for malignant neoplasm of colon (principal); I10 Essential (primary) hypertension; G89.29 Other chronic pain; M54.5 Low back pain; G47.33 Obstructive sleep apnea (adult) (pediatric); E03.9 Hypothyroidism, unspecified; E66.01 Morbid (severe) obesity due to excess calories; Z68.41 Body mass index [BMI] 40.0-44.9, adult; E78.00 Pure hypercholesterolemia, unspecified; G25.81 Restless legs syndrome; E89.41 Symptomatic postprocedural ovarian failure; J30.1 Allergic rhinitis due to pollen; Z79.899 Other long term (current) drug therapy
CPT/HCPCS: 45378; J7120